=== PATIENT | male | born 1955 | race Hispanic/Latino ===

== ENCOUNTER 2016-11-23 20:13 | Emergency (ER) | payer MEDICARE ==
[2016-11-23 20:14] VITALS: BMI 19.5
[2016-11-23 20:33] VITALS: BP 116/72; PULSE 94; RESP 16; TEMP 98.2; O2SAT 99
[2016-11-23] MEDS ORDERED: Lactated Ringer's 1,000 ML IV SCH (21:00)
--- NOTE | 2016-11-23 21:38 | ED PDOC ---
HPI: Abdomen Time Seen by Provider: 11/23/16 20:49 Chief Complaint (Nursing): Chest Pain Chief Complaint (Provider): GI problem History Per: Patient History/Exam Limitations: no limitations Onset/Duration Of Symptoms: Days (2x) Current Symptoms Are (Timing): Still Present Severity: Moderate Location Of Pain/Discomfort: Epigastric Associated Symptoms: denies: Fever, Diarrhea Additional Complaint(s): 61 year old male patient with a pertinent medical history of pancreatitis and EtOH abuse presents to the ED with complaints of abdominal pain and vomiting that started 2x days ago. He denies ingesting alcohol for the past 8x months. He denies having a fever and diarrhea. PMD: Patient does not recall Past Medical History Reviewed: Historical Data, Nursing Documentation, Vital Signs Vital Signs: Last Vital Signs Temp 98.2 F 11/23/16 20:29 Pulse 94 H 11/23/16 20:29 Resp 16 11/23/16 20:29 BP 116/72 11/23/16 20:29 Pulse Ox 99 11/23/16 21:45 - Medical History PMH: Anxiety, Depression, HTN, Pancreatitis (Recurrent) Denies: HIV, Chronic Kidney Disease - Family History Family History: States: Unknown Family Hx - Social History Alcohol: None Drugs: Denies - Home Medications Home Medications: Ambulatory Orders Medication Instructions Recorded Alprazolam [Xanax] 0.5 mg PO TID 08/18/16 Paroxetine HCl [Paxil] 40 mg PO DAILY 08/18/16 oxyCODONE [oxyCODONE Immediate 5 mg PO Q6 PRN 10/29/16 Release Tab] Dicyclomine [Dicyclomine HCl] 10 mg PO Q8 #20 cap 11/23/16 Famotidine [Pepcid] 20 mg PO Q12 #20 tab 11/23/16 - Allergies Allergies/Adverse Reactions: Allergies Allergy/AdvReac Type Severity Reaction Status Date / Time No Known Allergies Allergy Verified 11/23/16 20:28 Review of Systems ROS Statement: Except As Marked, All Systems Reviewed And Found Negative Constitutional: Negative for: Fever Gastrointestinal: Positive for: Vomiting, Abdominal Pain. Negative for: Diarrhea Physical Exam - Reviewed Nursing Documentation Reviewed: Yes Vital Signs Reviewed: Yes - Physical Exam Appears: Positive for: Well, Non-toxic, No Acute Distress Head Exam: Positive for: ATRAUMATIC, NORMOCEPHALIC Skin: Positive for: Normal Color, Warm, Dry Cardiovascular/Chest: Positive for: Regular Rate, Rhythm, Chest Non Tender Respiratory: Positive for: Normal Breath Sounds. Negative for: Respiratory Distress Gastrointestinal/Abdominal: Positive for: Bowel Sounds, Tenderness (epigastric) Neurologic/Psych: Positive for: Alert, Oriented (3x) - Laboratory Results Result Diagrams: 11/23/16 21:41 11/23/16 21:41 - ECG O2 Sat by Pulse Oximetry: 99 (RA) Pulse Ox Interpretation: Normal Medical Decision Making Medical Decision Makin:49 Initial impression: 61 year old male with abdominal pain and vomiting. Initial plan: * alcohol serum * CMP * lipase * CBC * lactated ringers 1,000ml IV 500mls/hr * morphine 4mg IVP * pepcid 4mg IVP * zofran 4mg IVP * reevaluation Scribe Attestation: Documented by Traci Adler, acting as a scribe for Solo Beard MD. Provider Scribe Attestation: All medical record entries made by the Scribe were at my direction and personally dictated by me. I have reviewed the chart and agree that the record accurately reflects my personal performance of the history, physical exam, medical decision making, and the department course for this patient. I have also personally directed, reviewed, and agree with the discharge instructions and disposition. Disposition - Clinical Impression Clinical Impression: Gastritis - Patient ED Disposition Is Patient to be Admitted: No Counseled Patient/Family Regarding: Studies Performed, Diagnosis, Need For Followup, Rx Given - Disposition Referrals: [facility] [Outside] Disposition: Routine/Home Disposition Time: 23:38 Condition: FAIR Prescriptions: Dicyclomine [Dicyclomine HCl] 10 mg PO Q8 #20 cap Famotidine [Pepcid] 20 mg PO Q12 #20 tab Instructions: Gastritis (ED)
[2016-11-23 21:57] LABS: ALB/GLOB RATIO 1.4 (1.0-2.1); ALCOHOL SERUM < 10 mg/dl (0-10); ALKALINE PHOSPHATASE 85 U/L (38-126); ALT/SGPT 32 U/L (21-72); AST/SGOT 20 U/L (17-59); BASO % 0.5 % (0.0-2.0); BILIRUBIN,TOTAL 0.3 mg/dl (0.2-1.3); BLOOD UREA NITROGEN 21 mg/dl (9-20); CALCIUM 9.3 mg/dL (8.4-10.2); CARBON DIOXIDE 24 mmol/L (22-30); CHLORIDE 102 mmol/L (98-107); EOS # 0.1 K/uL (0.0-0.7); EOS % 0.7 % (0.0-4.0); GFR AFRICAN-AMERICAN > 60; GLUCOSE,RANDOM 101 mg/dL (75-110); HEMATOCRIT 38.7 % (35.0-51.0); LYMPH % 21.7 % (20.0-40.0); MEAN CORPUSCULAR HGB CONC 34.4 g/dL (33.0-37.0); MEAN PLATELET VOLUME 8.1 fl (7.2-11.7); MONO # 0.7 K/uL (0.0-0.8); MONO % 7.5 % (0.0-10.0); NEUT # 6.5 K/uL (1.8-7.0); NEUT % 69.6 % (50.0-75.0); POTASSIUM 4.2 MMOL/L (3.6-5.0); RED CELL DISTRIBUTION WIDTH 14.6 % (11.5-14.5); SODIUM 142 mmol/l (132-148); TOTAL PROTEIN 7.4 G/DL (6.3-8.2); WHITE BLOOD COUNT 9.3 K/uL (4.8-10.8)
--- NOTE | 2016-11-23 23:12 | CT ---
EXAM: CT Abdomen and Pelvis Without Intravenous Contrast. CLINICAL HISTORY: 61 years old, male; Pain; Abdominal pain; Generalized; Patient HX: B/l abd pain with epigastric discomfort/anxiety. HTN. Pacreatitis; Additional info: R/O kidney stone TECHNIQUE: Axial computed tomography images of the abdomen and pelvis without intravenous contrast. This CT exam was performed using one or more of the following dose reduction techniques: automated exposure control, adjustment of the mA and/or kV according to patient size, and/or use of iterative reconstruction technique. COMPARISON: CT - ABD PELVIS IV CONTRAST ONLY 09/20/2016 2:44:30 AM FINDINGS: Lower thorax: There is minimal bibasilar atelectasis. ABDOMEN: Liver: There are no focal liver lesions present. Gallbladder and bile ducts: The gallbladder is normal. No calcified stones. No ductal dilation. Pancreas: The pancreas is normal. No ductal dilation. Spleen: The spleen is normal. Adrenals: 2.3 CM left adrenal adenoma is slightly enlarged from 2.0 CM on 09/20/2016. Kidneys and ureters: There is mild fullness of the left renal collecting system and left ureter without an obstructing calculus seen. This could possibly relate to recently passed calculus, please correlate clinically. The right kidney is normal. Stomach and bowel: Stomach is partially decompressed and grossly unremarkable. Colonic constipation is present. There is no evidence of intestinal obstruction. No mucosal thickening. Appendix: No findings to suggest acute appendicitis. PELVIS: Bladder: Bladder is partially decompressed however appears thickwalled. The wall thickening could relate to underdistention, chronic outflow obstruction or infectious, inflammatory or neoplastic process. Please correlate clinically and if indicated further evaluation can be obtained. Reproductive: Prostate is prominent measuring 5.0 CM transverse. ABDOMEN and PELVIS: Intraperitoneal space: There is no evidence of free intraperitoneal fluid. There is no free intraperitoneal air. Bones/joints: There are mild degenerative changes present. No acute fracture. No dislocation. Soft tissues: Unremarkable. Vasculature: The aorta demonstrates moderate atherosclerotic calcification. No abdominal aortic aneurysm. Lymph nodes: There is no evidence of lymphadenopathy. IMPRESSION: 1. There is mild fullness of the left renal collecting system and left ureter without an obstructing calculus seen. This could possibly relate to recently passed calculus, please correlate clinically. 2. Bladder is partially decompressed however appears thickwalled. The wall thickening could relate to underdistention, chronic outflow obstruction or infectious, inflammatory or neoplastic process. Please correlate clinically and if indicated further evaluation can be obtained. 3. Additional incidental and/or chronic findings as described.
== END 2016-11-23 23:40 | disposition home or self-care (01) ==
LOC: H.ER 20:13
DX: K29.70 Gastritis, unspecified, without bleeding (principal); I10 Essential (primary) hypertension
CPT/HCPCS: 74176; 80053; 83690; 85025; 96374; 96375; 99281; G0480; J2270; J2405

== ENCOUNTER 2016-12-15 18:16 | Inpatient (IN) | payer MEDICARE ==
[2016-12-15 18:17] VITALS: BMI 19.5
[2016-12-15] MEDS ORDERED: Sodium Chloride 0.9% 1,000 ML IV STA (18:37)
[2016-12-15] MEDS ORDERED: Iohexol 240 (50 ml) PO ONE (18:38)
--- NOTE | 2016-12-15 18:44 | ED PDOC ---
HPI: Abdomen Time Seen by Provider: 12/15/16 18:32 Chief Complaint (Nursing): Abdominal Pain Chief Complaint (Provider): Abdominal Pain History Per: Patient History/Exam Limitations: no limitations Onset/Duration Of Symptoms: Days (x2) Associated Symptoms: Nausea, Vomiting (nonbloody) Additional Complaint(s): 18:39 Leonard Quezada is a 61 year old male with a history of chronic pancreatitis, drug and alcohol abuse, and chronic smoking, that presents to the ED with a chief complaint of stabbing central abdominal pain that radiates to his back that he has been experiencing for the past two days with associated nausea and several episodes on nonbloody vomiting. Patient states that this episode feels similar to the episodes of abdominal pain he has experienced as a result of pancreatitis, which he developed due to his drug and alcohol abuse, but also states that he has been sober from both drugs and alcohol for the past 7 months. He denies any fever, syncope, chest pain, or shortness of breath. PMD: Shaun Hidalgo Past Medical History Reviewed: Historical Data, Nursing Documentation, Vital Signs Vital Signs: Last Vital Signs Temp 98.4 F 12/15/16 18:23 Pulse 103 H 12/15/16 18:23 Resp 16 12/15/16 18:23 BP 156/76 H 12/15/16 18:23 Pulse Ox 98 12/15/16 19:09 - Medical History PMH: Anxiety, Depression, HTN, Pancreatitis (Recurrent) Denies: HIV, Chronic Kidney Disease - Surgical History Surgical History: No Surg Hx - Family History Family History: States: Unknown Family Hx - Social History Current smoker - smoking cessation education provided: Yes Alcohol: None (patient states that he has been sober for 7 months) Drugs: Denies, Other (patient states that he has been sober for 7 months) - Home Medications Home Medications: Ambulatory Orders Medication Instructions Recorded Alprazolam [Xanax] 0.5 mg PO TID 08/18/16 Paroxetine HCl [Paxil] 40 mg PO DAILY 08/18/16 oxyCODONE [oxyCODONE Immediate 5 mg PO Q6 PRN 10/29/16 Release Tab] Dicyclomine [Dicyclomine HCl] 10 mg PO Q8 #20 cap 11/23/16 Famotidine [Pepcid] 20 mg PO Q12 #20 tab 11/23/16 - Allergies Allergies/Adverse Reactions: Allergies Allergy/AdvReac Type Severity Reaction Status Date / Time No Known Allergies Allergy Verified 11/23/16 20:28 Review of Systems Constitutional: Negative for: Fever Cardiovascular: Negative for: Chest Pain Respiratory: Negative for: Shortness of Breath Gastrointestinal: Positive for: Nausea, Vomiting (nonbloody) Neurological: Negative for: Other (Syncope) Physical Exam - Reviewed Nursing Documentation Reviewed: Yes Vital Signs Reviewed: Yes - Physical Exam Appears: Positive for: Non-toxic Head Exam: Positive for: ATRAUMATIC, NORMOCEPHALIC Skin: Positive for: Normal Color, Warm. Negative for: Pallor Cardiovascular/Chest: Positive for: Regular Rate, Rhythm. Negative for: Murmur Respiratory: Positive for: Normal Breath Sounds. Negative for: Wheezing Pulses-Dorsalis Pedis (L): 2+ Pulses-Dorsalis Pedis (R): 2+ Gastrointestinal/Abdominal: Positive for: Tenderness (mild central abdominal tenderness). Negative for: Guarding, Rebound Neurologic/Psych: Positive for: Alert, Oriented - ECG O2 Sat by Pulse Oximetry: 98 (RA) Pulse Ox Interpretation: Normal Medical Decision Making Medical Decision Makin:37 Initial Impression: Acute Abdominal Pain Initial Plan: * CBC * CMP * PTT * PT * Lipase * Alcohol Serum * Urinalysis * Morphine 2 mg IV * Sodium Chloride 1000 mL at 1000 mLs/hr * Iohexol 50 ml PO * Reevaluation Patient's old charts were reviewed, CT Scan from September 2016 revealed abnormal appearing tail of pancreas. Obtaining image to gauge stability of evolution. 19:00 Patient will be transferred over to Dr. Cornelio Giron pending ED workup. Scribe Attestation: Documented by Poonam Ramos, acting as a scribe for Pastor Leon III, MD. Provider Scribe Attestation: All medical record entries made by the Scribe were at my direction and personally dictated by me. I have reviewed the chart and agree that the record accurately reflects my personal performance of the history, physical exam, medical decision making, and the department course for this patient. I have also personally directed, reviewed, and agree with the discharge instructions and disposition. Disposition - Clinical Impression Clinical Impression: Abdominal pain - Patient ED Disposition Is Patient to be Admitted: Transfer of Care - Disposition Disposition: Transfer of Care Disposition Time: 19:10 Condition: STABLE Patient Signed Over To: Cornelio Giron Handoff Comments: pending labs imaging dispo
--- NOTE | 2016-12-15 19:08 | ED PDOC ---
- Laboratory Results Result Diagrams: 12/15/16 19:10 12/15/16 19:10 - ECG O2 Sat by Pulse Oximetry: 98 (RA) Medical Decision Making Medical Decision Makin:00 Patient transferred [place] Dr. Pastor Leon III pending ED workup. 19:16 Patient is to be placed in ED Obs secondary to ED workup. 0006: Patient still experiencing intractable pain. Spoke with Dr. Hidalgo who will admit the patient. Spoke with Dr. Banda who states patient was supposed to f/u outpatient, but never made an appointment. Dr. Banda agrees to consult and will consider ERCP or MRCP tomorrow. Disposition - Clinical Impression Clinical Impression: Abdominal pain, Acute on chronic pancreatitis - POA Present On Arrival: None - Disposition Disposition: Hospitalized as Observation Patient Disposition Time: 19:16 Condition: STABLE ED OBSERVATION Date of observation admission: 12/15/16 Time of observation admission: 19:16 - Progress Note Progress Note: 19:16 Patient placed in ED Obs secondary to ED workup.
[2016-12-15 19:32] LABS: BASO % 0.7 % (0.0-2.0); EOS % 0.3 % (0.0-4.0); HEMATOCRIT 39.6 % (35.0-51.0); LYMPH # 1.7 K/uL (1.0-4.3); LYMPH % 27.4 % (20.0-40.0); MEAN CELL VOLUME 94.6 fl (80.0-94.0); MEAN CORPUSCULAR HEMOGLOBIN 31.6 pg (27.0-31.0); MEAN CORPUSCULAR HGB CONC 33.4 g/dL (33.0-37.0); MONO # 0.6 K/uL (0.0-0.8); MONO % 8.8 % (0.0-10.0); NEUT % 62.8 % (50.0-75.0); WHITE BLOOD COUNT 6.4 K/uL (4.8-10.8)
[2016-12-15 19:44] LABS: ALB/GLOB RATIO 1.4 (1.0-2.1); ALCOHOL SERUM < 10 mg/dl (0-10); ALKALINE PHOSPHATASE 69 U/L (38-126); ALT/SGPT 18 U/L (21-72); AST/SGOT 26 U/L (17-59); BILIRUBIN,TOTAL 0.3 mg/dl (0.2-1.3); BLOOD UREA NITROGEN 19 mg/dl (9-20); CALCIUM 10.1 mg/dL (8.4-10.2); CARBON DIOXIDE 26 mmol/L (22-30); CHLORIDE 104 mmol/L (98-107); GFR AFRICAN-AMERICAN > 60; GLUCOSE,RANDOM 88 mg/dL (75-110); LIPASE 429 U/L (23-300); POTASSIUM 4.7 MMOL/L (3.6-5.0); SODIUM 144 mmol/l (132-148); TOTAL PROTEIN 7.6 G/DL (6.3-8.2)
[2016-12-15 20:00] LABS: RBC URINE 1 /hpf (0-3); URINE BILIRUBIN NEGATIVE (NEGATIVE); URINE BLOOD NEGATIVE (NEGATIVE); URINE COLOR STRAW (YELLOW); URINE GLUCOSE (UA) NEG (Normal); URINE KETONE NEGATIVE (NEGATIVE); URINE LEUKOCYTE ESTERASE NEG Leu/uL (Negative); URINE PROTEIN NEGATIVE (NEGATIVE); URINE UROBILINOGEN 0.2-1.0 mg/dL (0.2-1.0); WBC URINE 2 /hpf (0-5)
[2016-12-15] MEDS ORDERED: Iohexol 300 100 ML IJ ONE (21:42)
[2016-12-15] MEDS ORDERED: Sodium Chloride 0.9% 50 ML IV ONE (21:43)
--- NOTE | 2016-12-15 23:11 | CT ---
EXAM: CT Abdomen and Pelvis With Intravenous Contrast CLINICAL HISTORY: 61 years old, male; Pain; Abdominal pain; Epigastric; Patient HX: HX of chronic pancreatitis, gastritis; Additional info: Abdominal pain; HX pancreatitis abnormal pancreas TECHNIQUE: Axial computed tomography images of the abdomen and pelvis with intravenous contrast. This CT exam was performed using one or more of the following dose reduction techniques: automated exposure control, adjustment of the mA and/or kV according to patient size, and/or use of iterative reconstruction technique. Coronal and sagittal reformatted images were created and reviewed. CONTRAST: 90 mL of [id number] administered intravenously. COMPARISON: CT - ABD PELVIS W/O PO OR 11/23/2016 10:51:39 PM FINDINGS: Lower thorax: There is minimal bibasilar atelectasis. ABDOMEN: Liver: There are no focal liver lesions present. Gallbladder and bile ducts: The gallbladder is normal. No calcified stones. No ductal dilation. Pancreas: The pancreatic duct is prominent centrally measuring 5 mm. It is difficult to exclude underlying abnormality. If indicated, this could be further evaluated with MRCP or ERCP. Spleen: The spleen is normal. Adrenals: 1.5 CM right adrenal adenoma. 2.0 CM left adrenal adenoma. Kidneys and ureters: The kidneys are normal. No hydronephrosis. Stomach and bowel: The stomach is decompressed. Colonic constipation is present. There is no evidence of intestinal obstruction. No mucosal thickening. Appendix: No findings to suggest acute appendicitis. PELVIS: Bladder: The bladder is normal. Reproductive: 4.8 CM prostate. ABDOMEN and PELVIS: Intraperitoneal space: There is no evidence of free intraperitoneal fluid. There is no free intraperitoneal air. Bones/joints: There are mild degenerative changes present. No acute fracture. No dislocation. Soft tissues: Unremarkable. Vasculature: The aorta demonstrates moderate atherosclerotic calcification. No abdominal aortic aneurysm. Lymph nodes: There are multiple nonspecific enlarged lymph nodes. IMPRESSION: 1. The pancreatic duct is prominent centrally measuring 5 mm. It is difficult to exclude underlying abnormality. If indicated, this could be further evaluated with MRCP or ERCP. 2. 1.5 CM right adrenal adenoma. 2.0 CM left adrenal adenoma. 3. Additional incidental and/or chronic findings as described.
[2016-12-16] MEDS: Lactated Ringer's 1,000 ML IV SCH ×4 (00:22→19:56)
[2016-12-16] MEDS ORDERED: oxyCODONE 5 mg Immediate Release Tab PO PRN (06:28)
[2016-12-16 07:17] LABS: HEMATOCRIT 34.8 % (35.0-51.0); MEAN CORPUSCULAR HEMOGLOBIN 31.8 pg (27.0-31.0); MEAN CORPUSCULAR HGB CONC 33.8 g/dL (33.0-37.0); RED CELL DISTRIBUTION WIDTH 13.8 % (11.5-14.5); WHITE BLOOD COUNT 6.2 K/uL (4.8-10.8)
[2016-12-16 07:31] LABS: ALB/GLOB RATIO 1.4 (1.0-2.1); ALKALINE PHOSPHATASE 69 U/L (38-126); ALT/SGPT 20 U/L (21-72); AST/SGOT 26 U/L (17-59); BILIRUBIN,TOTAL 0.5 mg/dl (0.2-1.3); BLOOD UREA NITROGEN 17 mg/dl (9-20); CALCIUM 9.2 mg/dL (8.4-10.2); CARBON DIOXIDE 24 mmol/L (22-30); CHLORIDE 108 mmol/L (98-107); CHOLESTEROL 142 mg/dL (0-199); GFR AFRICAN-AMERICAN > 60; GLUCOSE,RANDOM 78 mg/dL (75-110); POTASSIUM 4.4 MMOL/L (3.6-5.0); SODIUM 143 mmol/l (132-148); TOTAL PROTEIN 6.2 G/DL (6.3-8.2)
[2016-12-16 07:50] LABS: T4 7.36 ug/dl (5.5-11.0)
[2016-12-16 07:51] LABS: PARTIAL THROMBOPLASTIN TIME 25.4 SECONDS (23.3-32.5)
[2016-12-16 08:04] LABS: THYROID STIMULATING HORMONE 2.07 mIU/ML (0.46-4.68)
[2016-12-16] MEDS ORDERED: Patient's Own Med (Paroxetine Hcl [Paxil] 40 MG) PO SCH (09:00)
--- NOTE | 2016-12-16 12:40 | CP.PCM.HP ---
History of Present Illness - History of Present Illness History of Present Illness: CC: Abdominal pain. 61 y/o M, came to [facility] for evaluation of Abdominal pain, ondet 2 days [employer] with no relief. Pt appear c/o of Abdominal pain RUQ,RLQ increased on DOA, pain is stabbing, constant, moderate to severe intensity 7-8:10, radiated to mid-back associated to N/V/D (several episodes of vomiting non bloody-non bilious). Worsening symptoms: Hx of Alcohol abuse (currently drinking). Aggravated factor: Changing positions, Irritability due to pain. Pt stated, last time he felt these symptoms was having an episode of Acute Pancreatitis. Pt denied: Fever, chills, dizziness, syncope, CP, SOB, cough, weakness, sick contact, recent travel. Pt denied Hx HIV. PMHx: Recurrent Pancreatitis, Anxiety, Depression, HTN. Hx ETHO abuse, Opioid dependence for chronic pain. CT Abd/Pel Shows; Prominent Pancreatic duct, b/l adrenal adenoma. Present on Admission - Present on Admission Any Indicators Present on Admission: No Review of Systems - Constitutional Constitutional: Other (negative). absent: Chills, Fever - EENT Eyes: Requires Corrective Lenses Ears: Other (negative) Nose/Mouth/Throat: Other (negative) - Cardiovascular Cardiovascular: Other (negative) - Respiratory Respiratory: Other (negative) - Gastrointestinal Gastrointestinal: Abdominal Pain, Diarrhea, Nausea, Vomiting - Genitourinary Genitourinary: Other (negative) - Musculoskeletal Musculoskeletal: Back Pain - Integumentary Integumentary: Other (negative) - Neurological Neurological: Other (negative) - Psychiatric Psychiatric: Anxiety, Depression - Endocrine Endocrine: Other (negative) - Hematologic/Lymphatic Hematologic: Other (negative) Past Patient History - Infectious Disease Hx of Infectious Diseases: None - Past Medical History & Family History Past Medical History?: Yes Pertinent Family History: Unknown - Past Social History Smoking Status: Light Smoker < 10 Cigarettes Daily Alcohol: Other (ETHO abuse, last time drinking 7 month ago.) Drugs: Denies Home Situation {Lives}: Alone - CARDIAC Hx Cardiac Disorders: Yes Hx Hypertension: Yes - PULMONARY Hx Respiratory Disorders: No - NEUROLOGICAL Hx Neurological Disorder: No - HEENT Hx HEENT Problems: No - RENAL Hx Chronic Kidney Disease: No - ENDOCRINE/METABOLIC Hx Endocrine Disorders: No - HEMATOLOGICAL/ONCOLOGICAL Hx Blood Disorders: No Hx Human Immunodeficiency Virus (HIV): No - INTEGUMENTARY Hx Dermatological Problems: No - MUSCULOSKELETAL/RHEUMATOLOGICAL Hx Musculoskeletal Disorders: Yes Hx Falls: Yes - GASTROINTESTINAL Hx Gastrointestinal Disorders: Yes Hx Pancreatitis: Yes (Recurrent) - GENITOURINARY/GYNECOLOGICAL Hx Genitourinary Disorders: No - PSYCHIATRIC Hx Psychophysiologic Disorder: Yes Hx Anxiety: Yes Hx Depression: Yes Hx Substance Use: Yes - SURGICAL HISTORY Hx Surgeries: No - ANESTHESIA Hx Anesthesia: No Hx Anesthesia Reactions: No Hx Malignant Hyperthermia: No Meds Allergies/Adverse Reactions: Allergies Allergy/AdvReac Type Severity Reaction Status Date / Time No Known Allergies Allergy Verified 11/23/16 20:28 Physical Exam - Constitutional Appears: No Acute Distress - Head Exam Head Exam: NORMAL INSPECTION - Eye Exam Eye Exam: PERRL - ENT Exam ENT Exam: Normal Oropharynx - Neck Exam Neck exam: Positive for: Normal Inspection - Respiratory Exam Respiratory Exam: NORMAL BREATHING PATTERN - Cardiovascular Exam Cardiovascular Exam: REGULAR RHYTHM - GI/Abdominal Exam GI & Abdominal Exam: Normal Bowel Sounds, Soft - Extremities Exam Extremities exam: Positive for: normal inspection - Back Exam Back exam: NORMAL INSPECTION - Neurological Exam Neurological exam: Alert, Oriented x3 Additional comments: No motor sensor deficit. - Psychiatric Exam Psychiatric exam: Anxious - Skin Skin Exam: Warm Results - Vital Signs Recent Vital Signs: Last Vital Signs Temp 97.8 F 12/16/16 07:52 Pulse 71 12/16/16 07:52 Resp 20 12/16/16 07:52 BP 137/82 12/16/16 07:52 Pulse Ox 95 12/16/16 07:52 reviewed Kev - Labs Result Diagrams: 12/16/16 06:13 12/16/16 06:50 Labs: Laboratory Results - last 24 hr 12/15/16 12/16/16 12/16/16 19:28 06:13 06:50 WBC 6.2 RBC 3.70 L Hgb 11.7 L Hct 34.8 L MCV 94.0 MCH 31.8 H MCHC 33.8 RDW 13.8 Plt Count 181 PT 11.2 INR 1.08 APTT 25.4 Sodium 143 Potassium 4.4 Chloride 108 H Carbon Dioxide 24 Anion Gap 15 BUN 17 Creatinine 0.7 L Est GFR ( Amer) > 60 Est GFR (Non-Af Amer) > 60 Random Glucose 78 Calcium 9.2 Total Bilirubin 0.5 AST 26 ALT 20 L Alkaline Phosphatase 69 Total Protein 6.2 L Albumin 3.6 Globulin 2.6 Albumin/Globulin Ratio 1.4 Triglycerides 68 Cholesterol 142 LDL Cholesterol Direct 85 HDL Cholesterol 42 Thyroxine (T4) 7.36 TSH 3rd Generation 2.07 Urine Color Straw Urine Clarity Clear Urine pH 6.0 Ur Specific Z[place] 1.005 Urine Protein Negative Urine Glucose (UA) Neg Urine Ketones Negative Urine Blood Negative Urine Nitrate Negative Urine Bilirubin Negative Urine Urobilinogen 0.2-1.0 Ur Leukocyte Esterase Neg Urine RBC (Auto) 1 Urine Microscopic WBC 2 reviewed J,P. - Imaging and Cardiology CT scan - abdomen Status: Report reviewed by me (GabinoP.) CT scan - pelvis Status: Report reviewed by me (Delia.P.) Assessment & Plan (1) Abdominal pain Status: Acute Priority: High (2) Acute on chronic pancreatitis Status: Acute Priority: High (3) Anxiety Status: Chronic Priority: Medium (4) Depression Status: Chronic Priority: Medium - Assessment and Plan (Free Text) Plan: Continue Dilaudid, Pepcid, Xanax and rest of Tx. f/u GI consult. - Date & Time Date: 12/16/16 Time: 11:00
[2016-12-16 15:50] LABS: URINE BILIRUBIN NEGATIVE (NEGATIVE); URINE BLOOD NEGATIVE (NEGATIVE); URINE COLOR YELLOW (YELLOW); URINE GLUCOSE (UA) NEG (Normal); URINE KETONE NEGATIVE (NEGATIVE); URINE LEUKOCYTE ESTERASE NEG Leu/uL (Negative); URINE PROTEIN NEGATIVE (NEGATIVE); URINE UROBILINOGEN 0.2-1.0 mg/dL (0.2-1.0); WBC URINE < 1 /hpf (0-5)
--- NOTE | 2016-12-16 20:19 | CARD ---
APPROVED REPORT EKG Measurement Heart [id number] <Conclusion> Normal sinus rhythm Minimal voltage criteria for LVH, may be normal variant Borderline ECG
--- NOTE | 2016-12-16 20:46 | CP.PCM.CON ---
History of Present Illness - History of Present Illness History of Present Illness: GI consult requested by Dr Hidalgo- This is a 61 year old male with history of Alcohol Abuse and dependance, Chronic pancreatitis with numerous admissions for same complaint and chronic abdominal pain presenting with abdominal pain, nausea , vomiting, and diarrhea. As per patient last drink last week. He is still smoking. Patient admits his symptoms are similar to prior ER visit CT A/P showing pancreatic ductal dilatation in pancreatic head and prior hypodense pancreatic body lesion not noted from CT A/P 10/2014. Patient states he possibly had a colonoscopy five years ago at outside facility-stating he "was not told the results". He is focused on asking for pain medications. He is somewhat agitated today. Tolerated diet Review of Systems - Review of Systems Review of Systems: 12 point ROS unremarkable except that documented in HPI Past Patient History - Infectious Disease Hx of Infectious Diseases: None - Past Medical History & Family History Past Medical History?: Yes - Past Social History Smoking Status: Light Smoker < 10 Cigarettes Daily - CARDIAC Hx Cardiac Disorders: Yes Hx Hypertension: Yes - PULMONARY Hx Respiratory Disorders: No - NEUROLOGICAL Hx Neurological Disorder: No - HEENT Hx HEENT Problems: No - RENAL Hx Chronic Kidney Disease: No - ENDOCRINE/METABOLIC Hx Endocrine Disorders: No - HEMATOLOGICAL/ONCOLOGICAL Hx Blood Disorders: No Hx Human Immunodeficiency Virus (HIV): No - INTEGUMENTARY Hx Dermatological Problems: No - MUSCULOSKELETAL/RHEUMATOLOGICAL Hx Musculoskeletal Disorders: No Hx Falls: Yes - GASTROINTESTINAL Hx Gastrointestinal Disorders: Yes Hx Pancreatitis: Yes (Recurrent) - GENITOURINARY/GYNECOLOGICAL Hx Genitourinary Disorders: No - PSYCHIATRIC Hx Psychophysiologic Disorder: Yes Hx Anxiety: Yes Hx Depression: Yes Hx Substance Use: Yes - SURGICAL HISTORY Hx Surgeries: No - ANESTHESIA Hx Anesthesia: No Hx Anesthesia Reactions: No Hx Malignant Hyperthermia: No Meds Allergies/Adverse Reactions: Allergies Allergy/AdvReac Type Severity Reaction Status Date / Time No Known Allergies Allergy Verified 11/23/16 20:28 - Medications Medications: Current Medications Alprazolam (Xanax) 0.5 mg PO TID [facility] Last Admin: 12/16/16 16:02 Dose: 0.5 mg Dicyclomine HCl (Bentyl) 10 mg PO Q8 [facility] Last Admin: 12/16/16 18:36 Dose: 10 mg Famotidine (Pepcid) 20 mg PO Q12 [facility] Last Admin: 12/16/16 09:29 Dose: 20 mg Hydromorphone HCl (Dilaudid) 2 mg IVP Q4H PRN PRN Reason: Pain, severe (8-10) Last Admin: 12/16/16 19:51 Dose: 2 mg Lactated Ringer's (Lactated Ringer's) 1,000 mls @ 250 mls/hr IV .Q4H [facility] Last Admin: 12/16/16 19:56 Dose: 250 mls/hr Oxycodone HCl (Oxycodone Immediate Release Tab) 5 mg PO Q6 PRN PRN Reason: Pain, moderate (4-7) Pantoprazole Sodium (Protonix Inj) 40 mg IVP DAILY [facility] Last Admin: 12/16/16 09:29 Dose: 40 mg Paroxetine HCl (Paxil) 40 mg PO DAILY [facility] Last Admin: 12/16/16 12:29 Dose: 40 mg Physical Exam - Constitutional Appears: Non-toxic, No Acute Distress - Head Exam Head Exam: ATRAUMATIC, NORMAL INSPECTION, NORMOCEPHALIC - Eye Exam Eye Exam: EOMI, Normal appearance, PERRL - ENT Exam ENT Exam: Mucous Membranes Moist, Normal Exam - Respiratory Exam Respiratory Exam: Clear to Auscultation Bilateral, NORMAL BREATHING PATTERN - Cardiovascular Exam Cardiovascular Exam: REGULAR RHYTHM, RRR, +S1, +S2 - GI/Abdominal Exam GI & Abdominal Exam: Normal Bowel Sounds, Soft. absent: Tenderness Additional comments: Non tender. No guarding - Extremities Exam Extremities exam: Positive for: normal inspection - Neurological Exam Neurological exam: Alert, CN II-XII Intact, Normal Gait, Oriented x3, Reflexes Normal - Skin Skin Exam: Dry, Intact, Normal Color, Warm Results - Vital Signs Recent Vital Signs: Last Vital Signs Temp 97.4 F L 12/16/16 20:19 Pulse 62 12/16/16 20:19 Resp 18 12/16/16 20:19 BP 115/74 12/16/16 20:19 Pulse Ox 97 12/16/16 20:19 - Labs Result Diagrams: 12/16/16 06:13 12/16/16 06:50 Labs: Laboratory Results - last 24 hr 12/16/16 15:20 Urine Color Yellow Urine Clarity Clear Urine pH 5.0 Ur Specific [place] 1.019 Urine Protein Negative Urine Glucose (UA) Neg Urine Ketones Negative Urine Blood Negative Urine Nitrate Negative Urine Bilirubin Negative Urine Urobilinogen 0.2-1.0 Ur Leukocyte Esterase Neg Urine Microscopic WBC < 1 Assessment & Plan - Assessment and Plan (Free Text) Assessment: 61 year old male with history of Alcohol Abuse, Chronic pancreatitis with numerous previous admissions admitted with, and chronic abdominal pain now resolving and tolerating diet. CT A/P showing pancreatic ductal dilatation in pancreatic head. Last admission he was given outpatient appointment with Dr Archer for outpatient EUS for PD dilatation but he has been non compliant with outpatient appointments. Has opioid dependance due to chronic pain. Actively drinking alcohol. Plan: - High volume IVF as tolerated by cardiac status - Diet as tolerated - pain management - Needs outpatient EUS for PD dilatation and chronic pain symptoms - Pancreatic enzymes with food and snacks - GI and DVT prophylaxis - Alcohol cessation - Supportive care - Date & Time Date: 12/16/16 Time: 20:45
[2016-12-16] MEDS ORDERED: Lactated Ringer's 1,000 ML IV SCH (21:00)
[2016-12-17 07:37] LABS: HEMATOCRIT 33.2 % (35.0-51.0); MEAN CELL VOLUME 94.8 fl (80.0-94.0); MEAN CORPUSCULAR HEMOGLOBIN 32.1 pg (27.0-31.0); MEAN CORPUSCULAR HGB CONC 33.8 g/dL (33.0-37.0); RED CELL DISTRIBUTION WIDTH 14.1 % (11.5-14.5); WHITE BLOOD COUNT 6.6 K/uL (4.8-10.8)
[2016-12-17 07:46] LABS: ALB/GLOB RATIO 1.4 (1.0-2.1); ALKALINE PHOSPHATASE 66 U/L (38-126); ALT/SGPT 23 U/L (21-72); AMYLASE 187 U/L (30-110); AST/SGOT 28 U/L (17-59); BILIRUBIN,TOTAL 0.3 mg/dl (0.2-1.3); BLOOD UREA NITROGEN 15 mg/dl (9-20); CALCIUM 9.4 mg/dL (8.4-10.2); CARBON DIOXIDE 26 mmol/L (22-30); CHLORIDE 107 mmol/L (98-107); GFR AFRICAN-AMERICAN > 60; GLUCOSE,RANDOM 74 mg/dL (75-110); LIPASE 143 U/L (23-300); POTASSIUM 4.2 MMOL/L (3.6-5.0); SODIUM 146 mmol/l (132-148); TOTAL PROTEIN 6.2 G/DL (6.3-8.2)
[2016-12-17 07:57] VITALS: BP 116/71; RESP 20; TEMP 98.4; O2SAT 95
[2016-12-17 08:32] VITALS: PULSE 62
--- NOTE | 2016-12-17 10:00 | CP.PCM.PN ---
Subjective - Date & Time of Evaluation Date of Evaluation: 12/17/16 Time of Evaluation: 09:58 - Subjective Subjective: RFV: Pancreatitis S: Reports mild persistent abdominal pain, but is overall improved. Tolerated breakfast. Wants to go home. Objective - Vital Signs/Intake and Output Vital Signs (last 24 hours): Temp Pulse Resp BP Pulse Ox 98.4 F 62 20 116/71 95 12/17/16 07:56 12/17/16 08:31 12/17/16 07:56 12/17/16 07:56 12/17/16 07:56 - Medications Medications: Current Medications Alprazolam (Xanax) 0.5 mg PO TID [facility] Last Admin: 12/17/16 08:10 Dose: 0.5 mg Dicyclomine HCl (Bentyl) 10 mg PO Q8 [facility] Last Admin: 12/17/16 08:11 Dose: 10 mg Famotidine (Pepcid) 20 mg PO Q12 [facility] Last Admin: 12/17/16 08:12 Dose: 20 mg Hydromorphone HCl (Dilaudid) 2 mg IVP Q4H PRN PRN Reason: Pain, severe (8-10) Last Admin: 12/17/16 08:09 Dose: 2 mg Lactated Ringer's (Lactated Ringer's) 1,000 mls @ 60 mls/hr IV .[id number] [facility] Last Admin: 12/16/16 23:59 Dose: 60 mls/hr Oxycodone HCl (Oxycodone Immediate Release Tab) 5 mg PO Q6 PRN PRN Reason: Pain, moderate (4-7) Pantoprazole Sodium (Protonix Inj) 40 mg IVP DAILY [facility] Last Admin: 12/17/16 08:12 Dose: 40 mg Paroxetine HCl (Paxil) 40 mg PO DAILY [facility] Last Admin: 12/17/16 08:11 Dose: 40 mg - Labs Labs: 12/17/16 05:20 12/17/16 05:20 PT 11.2 SECONDS (9.6-11.2) 12/16/16 06:50 INR 1.08 (0.92-1.08) 12/16/16 06:50 APTT 25.4 SECONDS (23.3-32.5) 12/16/16 06:50 - Constitutional Appears: No Acute Distress, Chronically Ill - Head Exam Head Exam: ATRAUMATIC, NORMOCEPHALIC - Eye Exam Eye Exam: Normal appearance. absent: Scleral icterus - ENT Exam ENT Exam: Mucous Membranes Moist, Normal Oropharynx - Respiratory Exam Respiratory Exam: Clear to Ausculation Bilateral, NORMAL BREATHING PATTERN. absent: Respiratory Distress - Cardiovascular Exam Cardiovascular Exam: REGULAR RHYTHM, +S1, +S2 - GI/Abdominal Exam GI & Abdominal Exam: Soft. absent: Distended, Guarding, Tenderness - Neurological Exam Neurological Exam: Alert, Oriented x3 - Psychiatric Exam Psychiatric exam: Normal Affect, Normal Mood - Skin Skin Exam: Dry, Normal Color, Warm Assessment and Plan - Assessment and Plan (Free Text) Assessment: 61 year old male with history of EtOH Abuse, Chronic pancreatitis admitted with recurrent abdominal pain. 1. Chronic pancreatitis 2. Pancreatic duct dilation Plan: - low fat diet recommended - pancreatic enzyme supplemenation with meals TID - protonix 40 mg po daily - Diet as tolerated - etoh/smoking abstinence - Needs outpatient EUS for PD dilatation to exclude pancreatic mass - ok ot discharge from GI standpoint
[2016-12-17] MEDS ORDERED: Amylase/Lipase/Protease 5,000 U ECC PO SCH (12:00)
--- NOTE | 2016-12-17 14:56 | CP.PCM.PN ---
Subjective - Date & Time of Evaluation Date of Evaluation: 12/17/16 Time of Evaluation: 09:15 - Subjective Subjective: F/U Abdominal pain. Abdominal pain improved, eating well. Objective - Vital Signs/Intake and Output Vital Signs (last 24 hours): Temp Pulse Resp BP Pulse Ox 98.4 F 62 20 116/71 95 12/17/16 07:56 12/17/16 08:31 12/17/16 07:56 12/17/16 07:56 12/17/16 07:56 - Labs Labs: 12/17/16 05:20 12/17/16 05:20 PT 11.2 SECONDS (9.6-11.2) 12/16/16 06:50 INR 1.08 (0.92-1.08) 12/16/16 06:50 APTT 25.4 SECONDS (23.3-32.5) 12/16/16 06:50 - Constitutional Appears: No Acute Distress - Head Exam Head Exam: NORMAL INSPECTION - Eye Exam Eye Exam: PERRL - ENT Exam ENT Exam: Normal Oropharynx - Neck Exam Neck Exam: Normal Inspection - Respiratory Exam Respiratory Exam: NORMAL BREATHING PATTERN - Cardiovascular Exam Cardiovascular Exam: REGULAR RHYTHM - GI/Abdominal Exam GI & Abdominal Exam: Soft, Normal Bowel Sounds - Extremities Exam Extremities Exam: Normal Inspection - Back Exam Back Exam: NORMAL INSPECTION - Neurological Exam Neurological Exam: Alert, Oriented x3. absent: Motor Sensory Deficit - Psychiatric Exam Psychiatric exam: Anxious - Skin Skin Exam: Warm Assessment and Plan (1) Abdominal pain Assessment & Plan: Improved. Status: Acute (2) Acute on chronic pancreatitis Status: Acute (3) Anxiety Status: Chronic (4) Depression Status: Chronic - Assessment and Plan (Free Text) Plan: Pt improved ans stable to be discharged, see instruction medication sheet, f/u PMD.
[2016-12-18] MEDS ORDERED: Pantoprazole 40 mg EC Tab PO SCH (09:00)
== END 2016-12-17 13:30 | disposition home or self-care (01) | DRG 439 ==
LOC: H.ER 18:16 → H.EROBSV 19:16 → H.ERHOLD 23:49 → H.MEDSURG1 12-16 03:50 → OBSVTOIN 12-16 12:34
PROVIDERS: ADMIT Internal Medicine Pulmonary Disease; ATTEND Internal Medicine Pulmonary Disease
DX: K85.90 Acute pancreatitis without necrosis or infection, unspecified (principal); F11.20 Opioid dependence, uncomplicated; I10 Essential (primary) hypertension; F10.10 Alcohol abuse, uncomplicated; K86.1 Other chronic pancreatitis; F17.200 Nicotine dependence, unspecified, uncomplicated; F32.9 Major depressive disorder, single episode, unspecified; G89.29 Other chronic pain; Z91.19 Patient's noncompliance with other medical treatment and regimen; F41.8 Other specified anxiety disorders

== ENCOUNTER 2016-12-19 01:08 | Emergency (ER) | payer MEDICARE ==
[2016-12-19 01:09] VITALS: BMI 19.5
[2016-12-19 01:26] VITALS: BP 140/80; PULSE 88; RESP 16; TEMP 98.9; O2SAT 98
[2016-12-19 02:22] LABS: BASO # 0.1 K/uL (0.0-0.2); BASO % 0.7 % (0.0-2.0); EOS # 0.1 K/uL (0.0-0.7); EOS % 0.9 % (0.0-4.0); HEMATOCRIT 36.4 % (35.0-51.0); LYMPH # 1.5 K/uL (1.0-4.3); LYMPH % 18.2 % (20.0-40.0); MEAN CELL VOLUME 94.4 fl (80.0-94.0); MEAN CORPUSCULAR HEMOGLOBIN 32.1 pg (27.0-31.0); MEAN PLATELET VOLUME 7.8 fl (7.2-11.7); MONO # 0.7 K/uL (0.0-0.8); MONO % 7.7 % (0.0-10.0); NEUT # 6.2 K/uL (1.8-7.0); NEUT % 72.5 % (50.0-75.0); WHITE BLOOD COUNT 8.5 K/uL (4.8-10.8)
--- NOTE | 2016-12-19 02:22 | ED PDOC ---
HPI: Abdomen Time Seen by Provider: 12/19/16 01:25 Chief Complaint (Nursing): Abdominal Pain Chief Complaint (Provider): Abdominal Pain History Per: Patient History/Exam Limitations: no limitations Onset/Duration Of Symptoms: Days (x1) Current Symptoms Are (Timing): Still Present Additional Complaint(s): 61yo male well known to provider and ED for multiple visits for chronic abdominal pain, alcohol abuse, depression, and pancreatitis presents to the ED with complaints of acute abdominal pain x 1 day. Patient reports multiple episodes of vomiting that is non-bloody and non-bilious. Symptoms consistent with previous episodes of pancreatitis. Denies alcohol use or any other medical complaints. Past Medical History Reviewed: Historical Data, Nursing Documentation, Vital Signs Vital Signs: Last Vital Signs Temp 98.9 F 12/19/16 01:23 Pulse 88 12/19/16 01:23 Resp 16 12/19/16 01:23 BP 140/80 12/19/16 01:23 Pulse Ox 98 12/19/16 02:26 - Medical History PMH: Anxiety, Depression, HTN, Pancreatitis (Recurrent), Chronic Pain (abdominal ) Denies: HIV, Chronic Kidney Disease Other PMH: alcohol abuse - Surgical History Surgical History: No Surg Hx - Family History Family History: States: No Known Family Hx - Social History Current smoker - smoking cessation education provided: Yes Ex-Smoker (has not smoked in the last 12 months): No Alcohol: > 2 Drinks/Day Drugs: Denies - Home Medications Home Medications: Ambulatory Orders Medication Instructions Recorded Alprazolam [Xanax] 0.5 mg PO TID 08/18/16 Paroxetine HCl [Paxil] 40 mg PO DAILY 08/18/16 oxyCODONE [oxyCODONE Immediate 5 mg PO Q6 PRN 10/29/16 Release Tab] Dicyclomine [Bentyl] 10 mg PO Q8 #20 cap 11/23/16 Amylase/Lipase/Protease [Pancrease 25,000 u PO TIDWM #30 ecc 12/17/16 63995 U-5000 [id number] U] Pantoprazole [Protonix EC Tab] 40 mg PO DAILY #30 ect 12/17/16 Dicyclomine [Bentyl] 20 mg PO Q12 PRN #20 tab 12/19/16 - Allergies Allergies/Adverse Reactions: Allergies Allergy/AdvReac Type Severity Reaction Status Date / Time No Known Allergies Allergy Verified 12/19/16 01:23 Review of Systems ROS Statement: Except As Marked, All Systems Reviewed And Found Negative Gastrointestinal: Positive for: Vomiting, Abdominal Pain Physical Exam - Reviewed Nursing Documentation Reviewed: Yes Vital Signs Reviewed: Yes - Physical Exam Appears: Positive for: No Acute Distress, Uncomfortable Head Exam: Positive for: ATRAUMATIC Skin: Positive for: Normal Color, Warm, Dry Eye Exam: Positive for: Normal appearance, EOMI, PERRL ENT: Positive for: Normal ENT Inspection Cardiovascular/Chest: Positive for: Regular Rate, Rhythm. Negative for: Murmur Respiratory: Negative for: Respiratory Distress Gastrointestinal/Abdominal: Positive for: Bowel Sounds, Soft, Tenderness (mild epigastric tenderness). Negative for: Guarding, Rebound Back: Positive for: Normal Inspection. Negative for: L CVA Tenderness, R CVA Tenderness Extremity: Positive for: Normal ROM. Negative for: Deformity Neurologic/Psych: Positive for: Alert, Oriented. Negative for: Motor/Sensory Deficits - Laboratory Results Result Diagrams: 12/19/16 02:19 12/19/16 02:19 - ECG O2 Sat by Pulse Oximetry: 98 (RA) Pulse Ox Interpretation: Normal Medical Decision Making Medical Decision Makin Initial impression: abdominal pain in setting of previous pancreatitis and history of alcoholism Initial plan: * EKG * EtOH serum * Labs * UDrug screen * Lipase * Morphine 6mg IVP * UA * Re-eval 0315 Labs reviewed with no significant abnormalities. Patient notes an improvement in symptoms. Provider emphasized the need to follow up with patient's GI specialist, and patient notes that he has an appointment on December 30. Patient has been prescribed Bentyl. Dx: abdominal pain Scribe Attestation: Documented by Ceci Ramírez acting as a scribe for Milo Morfin MD. Scribe Attestation: All medical record entries made by the Scribe were at my direction and personally dictated by me. I have reviewed the chart and agree that the record accurately reflects my personal performance of the history, physical exam, medical decision making, and the department course for this patient. I have also personally directed, reviewed, and agree with the discharge instructions and disposition. Disposition - Clinical Impression Clinical Impression: Abdominal pain - Patient ED Disposition Is Patient to be Admitted: No Counseled Patient/Family Regarding: Studies Performed, Diagnosis, Need For Followup, Rx Given - Disposition Referrals: Lluvia AYALA,MD Bill [Medical Doctor] - Shaun Hidalgo MD [Primary Care Provider] - Pk Archer MD [Medical Doctor] - Disposition: Routine/Home Disposition Time: 03:15 Condition: STABLE Prescriptions: Dicyclomine [Bentyl] 20 mg PO Q12 PRN #20 tab PRN Reason: abdominal pain Instructions: Abdominal Pain (ED)
[2016-12-19 02:25] LABS: RBC URINE < 1 /hpf (0-3); URINE BILIRUBIN NEGATIVE (NEGATIVE); URINE BLOOD NEGATIVE (NEGATIVE); URINE COLOR STRAW (YELLOW); URINE GLUCOSE (UA) NEG (Normal); URINE KETONE NEGATIVE (NEGATIVE); URINE LEUKOCYTE ESTERASE NEG Leu/uL (Negative); URINE PROTEIN NEGATIVE (NEGATIVE); URINE UROBILINOGEN 0.2-1.0 mg/dL (0.2-1.0); WBC URINE 1 /hpf (0-5)
[2016-12-19 02:27] LABS: CHLORIDE 106 mmol/L (98-107); SODIUM 141 mmol/l (132-148)
[2016-12-19 02:28] LABS: POTASSIUM 4.1 MMOL/L (3.6-5.0)
[2016-12-19 02:30] LABS: ALB/GLOB RATIO 1.5 (1.0-2.1); ALKALINE PHOSPHATASE 63 U/L (38-126); AST/SGOT 23 U/L (17-59); BILIRUBIN,TOTAL 0.3 mg/dl (0.2-1.3); BLOOD UREA NITROGEN 21 mg/dl (9-20); CARBON DIOXIDE 24 mmol/L (22-30); GFR AFRICAN-AMERICAN > 60; GLUCOSE,RANDOM 101 mg/dL (75-110)
[2016-12-19 02:31] LABS: ALCOHOL SERUM < 10 mg/dl (0-10); ALT/SGPT 29 U/L (21-72); CALCIUM 9.4 mg/dL (8.4-10.2); LIPASE 155 U/L (23-300)
--- NOTE | 2016-12-19 18:24 | CARD ---
APPROVED REPORT EKG Measurement Heart [id number] <Conclusion> Normal sinus rhythm Normal ECG
== END 2016-12-19 04:15 | disposition home or self-care (01) ==
LOC: H.ER 01:08
DX: R10.13 Epigastric pain (principal); R11.10 Vomiting, unspecified; F10.20 Alcohol dependence, uncomplicated; F41.9 Anxiety disorder, unspecified; G89.29 Other chronic pain; I10 Essential (primary) hypertension; K85.90 Acute pancreatitis without necrosis or infection, unspecified; Z87.891 Personal history of nicotine dependence
CPT/HCPCS: 80053; 81003; 83690; 85025; 93005; 96374; 99282; G0480; J2270

== ENCOUNTER 2017-01-14 02:44 | Emergency (ER) | payer MEDICARE ==
[2017-01-14 02:44] VITALS: BMI 19.5
[2017-01-14 02:54] VITALS: BP 140/84; PULSE 80; RESP 17; TEMP 98.1; O2SAT 98
[2017-01-14] MEDS ORDERED: Sodium Chloride 0.9% 1,000 ML IV STA (03:16)
--- NOTE | 2017-01-14 03:28 | ED PDOC ---
HPI: Abdomen Time Seen by Provider: 01/14/17 02:48 Chief Complaint (Nursing): Abdominal Pain Chief Complaint (Provider): abdominal pain History Per: Patient History/Exam Limitations: no limitations Onset/Duration Of Symptoms: Days (1) Outside of [place] travel?: No Current Symptoms Are (Timing): Still Present Additional Complaint(s): 61yo male well known to provider and ED for multiple visits for chronic abdominal pain, alcohol abuse, depression, and pancreatitis presents to the ED with complaints of abdominal pain x 1 day. Patient reports multiple episodes of vomiting that are non-bloody and non-bilious. Symptoms consistent with previous episodes of pancreatitis. Denies alcohol use or any other medical complaints. Past Medical History Reviewed: Historical Data, Nursing Documentation, Vital Signs Vital Signs: Last Vital Signs Temp 98.1 F 01/14/17 02:52 Pulse 80 01/14/17 02:52 Resp 17 01/14/17 02:52 BP 140/84 01/14/17 02:52 Pulse Ox 98 01/14/17 05:12 - Medical History PMH: Anxiety, Depression, HTN, Pancreatitis (Recurrent), Chronic Pain (abdominal ) Denies: HIV, Chronic Kidney Disease - Surgical History Surgical History: No Surg Hx - Family History Family History: States: No Known Family Hx - Social History Current smoker - smoking cessation education provided: No Alcohol: Other (hx of alcohol abuse) Drugs: Denies - Home Medications Home Medications: Ambulatory Orders Medication Instructions Recorded Alprazolam [Xanax] 0.5 mg PO TID 08/18/16 Paroxetine HCl [Paxil] 40 mg PO DAILY 08/18/16 oxyCODONE [oxyCODONE Immediate 5 mg PO Q6 PRN 10/29/16 Release Tab] Dicyclomine [Bentyl] 10 mg PO Q8 #20 cap 11/23/16 Amylase/Lipase/Protease [Pancrease 25,000 u PO TIDWM #30 ecc 12/17/16 88597 U-5000 U-[id number] U] Pantoprazole [Protonix EC Tab] 40 mg PO DAILY #30 ect 12/17/16 Dicyclomine [Bentyl] 20 mg PO Q12 PRN #20 tab 12/19/16 Dicyclomine [Bentyl] 20 mg PO Q12 PRN #20 tab 01/14/17 Ondansetron ODT [Zofran ODT] 4 mg PO Q6 PRN #16 odt 01/14/17 - Allergies Allergies/Adverse Reactions: Allergies Allergy/AdvReac Type Severity Reaction Status Date / Time No Known Allergies Allergy Verified 12/19/16 01:23 Review of Systems ROS Statement: Except As Marked, All Systems Reviewed And Found Negative Gastrointestinal: Positive for: Vomiting, Abdominal Pain Physical Exam - Reviewed Nursing Documentation Reviewed: Yes Vital Signs Reviewed: Yes - Physical Exam Appears: Positive for: Well, No Acute Distress Head Exam: Positive for: ATRAUMATIC, NORMAL INSPECTION, NORMOCEPHALIC Skin: Positive for: Normal Color, Warm, Dry Eye Exam: Positive for: Normal appearance, EOMI, PERRL ENT: Positive for: Normal ENT Inspection Neck: Positive for: Normal, Painless ROM, Supple Cardiovascular/Chest: Positive for: Regular Rate, Rhythm. Negative for: Murmur , Tachycardia Respiratory: Positive for: Normal Breath Sounds. Negative for: Wheezing, Respiratory Distress Gastrointestinal/Abdominal: Positive for: Soft, Tenderness (mild epigastric ). Negative for: Guarding, Rebound Back: Positive for: Normal Inspection. Negative for: L CVA Tenderness, R CVA Tenderness Extremity: Positive for: Normal ROM. Negative for: Deformity, Swelling Neurologic/Psych: Positive for: Alert, Oriented - Laboratory Results Result Diagrams: 01/14/17 04:05 01/14/17 04:05 - ECG O2 Sat by Pulse Oximetry: 98 Pulse Ox Interpretation: Normal (RA) Medical Decision Making Medical Decision Makin: Impression: 61yo male w/ abdominal pain in setting of previous pancreatitis and history of alcoholism Plan: EKG Labs Bentyl 20mg PO, Zofran 4mg IV, IVF reassess 0524: Labs reviewed, show no clinically significant abnormalities. Patient stable for d/c. Dx: gastroenteritis, abdominal pain Rx: Bentyl, Zofran Stable Scribe Attestation: Documented by David Comer acting as a scribe for Milo Morfin MD. Provider Scribe Attestation: All medical record entries made by the Scribe were at my direction and personally dictated by me. I have reviewed the chart and agree that the record accurately reflects my personal performance of the history, physical exam, medical decision making, and the department course for this patient. I have also personally directed, reviewed, and agree with the discharge instructions and disposition. Disposition - Clinical Impression Clinical Impression: Abdominal pain, Gastroenteritis - Patient ED Disposition Is Patient to be Admitted: No - Disposition Referrals: Shaun Hidalgo MD [Primary Care Provider] - Disposition: Routine/Home Disposition Time: 05:24 Condition: STABLE Prescriptions: Dicyclomine [Bentyl] 20 mg PO Q12 PRN #20 tab PRN Reason: abdominal pain/diarrhea Ondansetron ODT [Zofran ODT] 4 mg PO Q6 PRN #16 odt PRN Reason: Nausea/Vomiting Instructions: Gastroenteritis (ED)
[2017-01-14 04:16] LABS: CHLORIDE 105 mmol/L (98-107); POTASSIUM 4.3 MMOL/L (3.6-5.0); SODIUM 138 mmol/l (132-148)
[2017-01-14 04:18] LABS: AST/SGOT 23 U/L (17-59); BILIRUBIN,TOTAL 0.4 mg/dl (0.2-1.3); CARBON DIOXIDE 22 mmol/L (22-30); GFR AFRICAN-AMERICAN > 60
[2017-01-14 04:19] LABS: ALB/GLOB RATIO 1.5 (1.0-2.1); ALKALINE PHOSPHATASE 73 U/L (38-126); ALT/SGPT 29 U/L (21-72); BLOOD UREA NITROGEN 21 mg/dl (9-20); CALCIUM 9.6 mg/dL (8.4-10.2); GLUCOSE,RANDOM 100 mg/dL (75-110); LIPASE 137 U/L (23-300); TOTAL PROTEIN 7.2 G/DL (6.3-8.2)
[2017-01-14 04:20] LABS: BASO % 0.7 % (0.0-2.0); EOS # 0.1 K/uL (0.0-0.7); HEMATOCRIT 40.8 % (35.0-51.0); LYMPH # 1.9 K/uL (1.0-4.3); LYMPH % 28.4 % (20.0-40.0); MEAN CELL VOLUME 95.1 fl (80.0-94.0); MEAN CORPUSCULAR HEMOGLOBIN 31.7 pg (27.0-31.0); MEAN CORPUSCULAR HGB CONC 33.3 g/dL (33.0-37.0); MEAN PLATELET VOLUME 8.2 fl (7.2-11.7); MONO # 0.6 K/uL (0.0-0.8); NEUT # 4.1 K/uL (1.8-7.0); NEUT % 59.9 % (50.0-75.0); RED CELL DISTRIBUTION WIDTH 13.9 % (11.5-14.5); WHITE BLOOD COUNT 6.8 K/uL (4.8-10.8)
--- NOTE | 2017-01-14 13:28 | CARD ---
APPROVED REPORT EKG Measurement Heart [id number] <Conclusion> Normal sinus rhythm Incomplete RBBB Minimal voltage criteria for LVH, may be normal variant Borderline ECG
== END 2017-01-14 05:24 | disposition home or self-care (01) ==
LOC: H.ER 02:44
DX: K52.9 Noninfective gastroenteritis and colitis, unspecified (principal); K85.90 Acute pancreatitis without necrosis or infection, unspecified; R11.10 Vomiting, unspecified; F10.20 Alcohol dependence, uncomplicated; F32.9 Major depressive disorder, single episode, unspecified; F41.9 Anxiety disorder, unspecified; G89.29 Other chronic pain; I10 Essential (primary) hypertension; I45.10 Unspecified right bundle-branch block
CPT/HCPCS: 80053; 83690; 85025; 93005; 96361; 96374; 99283; J2405; J7040

== ENCOUNTER 2017-04-12 00:19 | Emergency (ER) | payer MEDICARE ==
[2017-04-12 00:19] VITALS: BMI 19.5
[2017-04-12 00:29] VITALS: BP 164/95; PULSE 94; RESP 18; TEMP 98.5; O2SAT 98
[2017-04-12] MEDS ORDERED: Sodium Chloride 0.9% 1,000 ML IV STA (00:31)
[2017-04-12] MEDS ORDERED: Morphine 4 MG/ML VIAL IV STA ×2 (00:33→03:24)
[2017-04-12] MEDS ORDERED: Morphine 4 MG/ML VIAL ONE ×2 (01:53→03:27)
[2017-04-12 01:54] LABS: BASO % 0.2 % (0.0-2.0); EOS # 0.1 K/uL (0.0-0.7); EOS % 1.3 % (0.0-4.0); LYMPH # 1.6 K/uL (1.0-4.3); LYMPH % 18.8 % (20.0-40.0); MEAN CELL VOLUME 95.7 fl (80.0-94.0); MEAN CORPUSCULAR HEMOGLOBIN 32.5 pg (27.0-31.0); MEAN PLATELET VOLUME 8.3 fl (7.2-11.7); MONO # 0.6 K/uL (0.0-0.8); MONO % 6.7 % (0.0-10.0); NEUT # 6.4 K/uL (1.8-7.0); RBC 4.01 Mil/uL (4.40-5.90); WHITE BLOOD COUNT 8.7 K/uL (4.8-10.8)
[2017-04-12 02:06] LABS: ALB/GLOB RATIO 1.6 (1.0-2.1); ALT/SGPT 35 U/L (21-72); AST/SGOT 23 U/L (17-59); BLOOD UREA NITROGEN 15 mg/dl (9-20); CALCIUM 9.4 mg/dL (8.4-10.2); GFR AFRICAN-AMERICAN > 60; GFR NON-AFRICAN AMERICAN > 60; LIPASE 213 U/L (23-300)
--- NOTE | 2017-04-12 03:14 | ED PDOC ---
HPI: Abdomen Time Seen by Provider: 04/12/17 00:28 Chief Complaint (Nursing): Abdominal Pain Chief Complaint (Provider): Abdominal pain, central History Per: Patient History/Exam Limitations: no limitations Onset/Duration Of Symptoms: Days Outside of [place] travel?: No Current Symptoms Are (Timing): Still Present Location Of Pain/Discomfort: Epigastric, Periumbilical Quality Of Discomfort: Dull, Burning Associated Symptoms: Nausea, Vomiting, Diarrhea, Loss Of Appetite. denies: Fever, Chills, Back Pain, Chest Pain, Constipation, Urinary Symptoms Additional Complaint(s): Pt states he is having central abdominal pain x 2 days. Pt also reports N/V/D. Pt states that this is similar to previous episode of pancreatitis. Pt states he has not been drinking in the last year. Past Medical History Reviewed: Historical Data, Nursing Documentation, Vital Signs Vital Signs: Last Vital Signs Temp 98.5 F 04/12/17 00:23 Pulse 94 H 04/12/17 00:23 Resp 18 04/12/17 00:23 BP 164/95 H 04/12/17 00:23 Pulse Ox 98 04/12/17 00:23 - Medical History PMH: Anxiety, Depression, HTN, Pancreatitis (Recurrent), Chronic Pain (abdominal ) Denies: HIV, Chronic Kidney Disease - Surgical History Surgical History: No Surg Hx - Family History Family History: States: No Known Family Hx - Home Medications Home Medications: Ambulatory Orders Medication Instructions Recorded Alprazolam [Xanax] 0.5 mg PO TID 08/18/16 Paroxetine HCl [Paxil] 40 mg PO DAILY 08/18/16 oxyCODONE [oxyCODONE Immediate 5 mg PO Q6 PRN 10/29/16 Release Tab] Dicyclomine [Bentyl] 10 mg PO Q8 #20 cap 11/23/16 Amylase/Lipase/Protease [Pancrease 25,000 u PO TIDWM #30 ecc 12/17/16 51626 U-5000 U-[id number] U] Pantoprazole [Protonix EC Tab] 40 mg PO DAILY #30 ect 12/17/16 Dicyclomine [Bentyl] 20 mg PO Q12 PRN #20 tab 12/19/16 Dicyclomine [Bentyl] 20 mg PO Q12 PRN #20 tab 01/14/17 Ondansetron ODT [Zofran ODT] 4 mg PO Q6 PRN #16 odt 01/14/17 - Allergies Allergies/Adverse Reactions: Allergies Allergy/AdvReac Type Severity Reaction Status Date / Time No Known Allergies Allergy Verified 12/19/16 01:23 Review of Systems ROS Statement: Except As Marked, All Systems Reviewed And Found Negative Gastrointestinal: Positive for: Nausea, Vomiting, Abdominal Pain, Diarrhea Physical Exam - Reviewed Nursing Documentation Reviewed: Yes Vital Signs Reviewed: Yes - Physical Exam Appears: Positive for: Well, Non-toxic, No Acute Distress Head Exam: Positive for: ATRAUMATIC, NORMAL INSPECTION, NORMOCEPHALIC Skin: Positive for: Normal Color, Warm, DRY Eye Exam: Positive for: Normal appearance ENT: Positive for: Normal ENT Inspection Neck: Positive for: Normal, Painless ROM Cardiovascular/Chest: Positive for: Regular Rate, Rhythm Respiratory: Positive for: Normal Breath Sounds. Negative for: Accessory Muscle Use, Respiratory Distress Gastrointestinal/Abdominal: Positive for: Bowel Sounds, Soft, Tenderness (Mild diffuse ). Negative for: Normal Exam Back: Positive for: Normal Inspection Extremity: Positive for: Normal ROM Neurologic/Psych: Positive for: Alert, Oriented - Laboratory Results Result Diagrams: 04/12/17 01:49 04/12/17 01:49 - ECG O2 Sat by Pulse Oximetry: 98 Disposition - Clinical Impression Clinical Impression: Abdominal pain - Patient ED Disposition Is Patient to be Admitted: No Counseled Patient/Family Regarding: Diagnosis, Need For Followup - Disposition Disposition: Routine/Home Disposition Time: 03:12 Condition: GOOD Instructions: Abdominal Pain (ED)
--- NOTE | 2017-04-12 12:53 | CARD ---
APPROVED REPORT EKG Measurement Heart [id number] <Conclusion> Normal sinus rhythm Normal ECG
== END 2017-04-12 03:12 | disposition home or self-care (01) ==
LOC: H.ER 00:19
DX: R10.9 Unspecified abdominal pain (principal); F32.9 Major depressive disorder, single episode, unspecified; F41.9 Anxiety disorder, unspecified; G89.29 Other chronic pain; I10 Essential (primary) hypertension
CPT/HCPCS: 80053; 83690; 85025; 93005; 96360; 99282; J7040

== ENCOUNTER 2017-04-18 03:07 | Emergency (ER) | payer MEDICARE ==
[2017-04-18 03:12] VITALS: BMI 18.1
[2017-04-18 03:15] VITALS: BP 116/77; PULSE 85; RESP 16; TEMP 98.4; O2SAT 96
--- NOTE | 2017-04-18 03:35 | ED PDOC ---
HPI: Psych/Substance Abuse Time Seen by Provider: 04/18/17 03:09 Chief Complaint (Nursing): Abdominal Pain History Per: Patient Onset/Duration Of Symptoms: Mins (prior to arrival) Current Symptoms Are (Timing): Still Present Additional Complaint(s): Leonard Quezada is a 61 year old male, well known to ED with previous medical history of chronic abdominal pain, alcohol abuse, depression, and pancreatitis, presents to the emergency department for an evaluation of a possible overdose prior to arrival. Patient reported multiple episodes of non-bloody and non- bilious vomiting. Symptoms consistent with previous episodes of pancreatitis. Denies alcohol use or any other medical complaints. PMD: none provided Past Medical History Reviewed: Historical Data, Nursing Documentation, Vital Signs Vital Signs: Last Vital Signs Temp 98.4 F 04/18/17 03:12 Pulse 85 04/18/17 03:12 Resp 16 04/18/17 03:12 BP 116/77 04/18/17 03:12 Pulse Ox 96 04/18/17 03:12 - Medical History PMH: Anxiety, Depression, HTN, Pancreatitis (Recurrent), Chronic Pain (abdominal ) Denies: HIV, Chronic Kidney Disease - Family History Family History: States: Unknown Family Hx - Social History Current smoker - smoking cessation education provided: Yes Alcohol: > 2 Drinks/Day Drugs: Cannabis, Cocaine - Home Medications Home Medications: Ambulatory Orders Medication Instructions Recorded Alprazolam [Xanax] 0.5 mg PO TID 08/18/16 Paroxetine HCl [Paxil] 40 mg PO DAILY 08/18/16 oxyCODONE [oxyCODONE Immediate 5 mg PO Q6 PRN 10/29/16 Release Tab] Dicyclomine [Bentyl] 10 mg PO Q8 #20 cap 11/23/16 Amylase/Lipase/Protease [Pancrease 25,000 u PO TIDWM #30 ecc 12/17/16 29442 U-5000 [id number] U] Pantoprazole [Protonix EC Tab] 40 mg PO DAILY #30 ect 12/17/16 Dicyclomine [Bentyl] 20 mg PO Q12 PRN #20 tab 12/19/16 Dicyclomine [Bentyl] 20 mg PO Q12 PRN #20 tab 01/14/17 Ondansetron ODT [Zofran ODT] 4 mg PO Q6 PRN #16 odt 01/14/17 - Allergies Allergies/Adverse Reactions: Allergies Allergy/AdvReac Type Severity Reaction Status Date / Time No Known Allergies Allergy Verified 04/18/17 03:12 Review of Systems ROS Statement: Except As Marked, All Systems Reviewed And Found Negative Constitutional: Positive for: Other (possible overdose) Gastrointestinal: Positive for: Vomiting Physical Exam - Reviewed Nursing Documentation Reviewed: Yes Vital Signs Reviewed: Yes - Physical Exam Appears: Positive for: Well, Non-toxic, No Acute Distress Head Exam: Positive for: ATRAUMATIC, NORMAL INSPECTION, NORMOCEPHALIC Skin: Positive for: Normal Color Cardiovascular/Chest: Positive for: Regular Rate, Rhythm. Negative for: Chest Non Tender Respiratory: Positive for: Normal Breath Sounds. Negative for: Crackles, Rales , Rhonchi, Wheezing Gastrointestinal/Abdominal: Positive for: Normal Exam, Bowel Sounds, Soft. Negative for: Tenderness Neurologic/Psych: Positive for: Alert - Laboratory Results Result Diagrams: 04/18/17 04:00 04/18/17 04:00 - ECG O2 Sat by Pulse Oximetry: 96 (RA) Pulse Ox Interpretation: Normal Medical Decision Making Medical Decision Making: Initial Impression: Possible overdose Initial Plan: * Alcohol serum * Labs * Lipase * Urine dipstick * Bentyl 20mg * Toradol 10mg Time: 0450 --Labs: no significant abnormality. Noted ETOH level = 50. --Provider reinforced patient to abstain from alcohol use. --Patient to follow up with Dr. Lluvia FORDE. Clinical Impression: Abdominal pain Scribe Attestation: Documented by Maryjo Taylor, acting as a scribe for Milo Morfin MD. Provider Scribe Attestation: All medical record entries made by the Scribe were at my direction and personally dictated by me. I have reviewed the chart and agree that the record accurately reflects my personal performance of the history, physical exam, medical decision making, and the department course for this patient. I have also personally directed, reviewed, and agree with the discharge instructions and disposition. Disposition - Clinical Impression Clinical Impression: Abdominal pain - Patient ED Disposition Is Patient to be Admitted: No Doctor Will See Patient In The: Office Counseled Patient/Family Regarding: Studies Performed, Diagnosis, Need For Followup - Disposition Referrals: [facility] [Outside] Lluvia AYALA,MD Bill [Medical Doctor] - Disposition: Routine/Home Disposition Time: 04:50 Condition: STABLE Instructions: Abdominal Pain (ED) Forms: [facility] (Cuban)
[2017-04-18 04:15] LABS: BASO # 0.1 K/uL (0.0-0.2); BASO % 0.6 % (0.0-2.0); EOS # 0.1 K/uL (0.0-0.7); EOS % 0.9 % (0.0-4.0); HEMOGLOBIN 13.9 g/dL (12.0-18.0); LYMPH # 1.8 K/uL (1.0-4.3); LYMPH % 16.6 % (20.0-40.0); MEAN CELL VOLUME 95.2 fl (80.0-94.0); MEAN CORPUSCULAR HEMOGLOBIN 32.5 pg (27.0-31.0); MEAN CORPUSCULAR HGB CONC 34.2 g/dL (33.0-37.0); MEAN PLATELET VOLUME 8.3 fl (7.2-11.7); MONO # 0.7 K/uL (0.0-0.8); MONO % 6.6 % (0.0-10.0); NEUT # 8.2 K/uL (1.8-7.0); NEUT % 75.3 % (50.0-75.0); NRBC % 0.1 % (0.0-0.0); RBC 4.26 Mil/uL (4.40-5.90); RED CELL DISTRIBUTION WIDTH 14.1 % (11.5-14.5); WHITE BLOOD COUNT 10.9 K/uL (4.8-10.8)
[2017-04-18 04:23] LABS: ALB/GLOB RATIO 1.6 (1.0-2.1); ALBUMIN 4.5 g/dL (3.5-5.0); ALT/SGPT 35 U/L (21-72); AST/SGOT 26 U/L (17-59); BLOOD UREA NITROGEN 15 mg/dl (9-20); GFR AFRICAN-AMERICAN > 60; GFR NON-AFRICAN AMERICAN > 60; LIPASE 156 U/L (23-300)
[2017-04-18] MEDS ORDERED: Alum-Mag Hydrox-Simethicone Susp (30 mL) PO STA (04:52)
== END 2017-04-18 05:01 | disposition home or self-care (01) ==
LOC: H.ER 03:07
DX: R10.9 Unspecified abdominal pain (principal)
CPT/HCPCS: 80053; 83690; 85025; 96374; 96375; 99282; G0480; J1885; J2405

== ENCOUNTER 2017-04-28 18:55 | Emergency (ER) | payer MEDICARE ==
[2017-04-28 18:55] VITALS: BMI 18.1
[2017-04-28 19:04] VITALS: BP 147/69; PULSE 94; RESP 16; TEMP 97; O2SAT 99
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
== END 2017-04-28 20:52 | disposition home or self-care (01) ==
LOC: H.ER 18:55
DX: M54.9 Dorsalgia, unspecified (principal); F32.9 Major depressive disorder, single episode, unspecified; F41.9 Anxiety disorder, unspecified; G89.29 Other chronic pain; I10 Essential (primary) hypertension; K85.90 Acute pancreatitis without necrosis or infection, unspecified

== ENCOUNTER 2017-06-14 13:13 | Emergency (ER) | payer MEDICARE ==
[2017-06-14 13:14] VITALS: BMI 18.1
[2017-06-14 13:19] VITALS: BP 122/67; RESP 18; TEMP 98.4; O2SAT 96
[2017-06-14] MEDS ORDERED: Sodium Chloride 0.9% 1,000 ML IV STA (13:48)
--- NOTE | 2017-06-14 13:48 | ED PDOC ---
HPI: Abdomen Time Seen by Provider: 06/14/17 13:29 Chief Complaint (Nursing): GI Problem Chief Complaint (Provider): Abdominal Pain History Per: Patient History/Exam Limitations: no limitations Onset/Duration Of Symptoms: Hrs Outside of [place] travel?: No Current Symptoms Are (Timing): Still Present Quality Of Discomfort: "Pain" Associated Symptoms: Nausea, Vomiting, Diarrhea Additional Complaint(s): Leonard Quezada, a 61 year old male, with a past medical history of chronic pancreatitis presents to the Ed complaining of abdominal pain associated with nausea, vomiting and diarrhea that started around 3a this morning. The patient states that the pain radiates to the lower back. Patient states his last drink was 1 year ago. Past Medical History Reviewed: Historical Data, Nursing Documentation, Vital Signs Vital Signs: Last Vital Signs Temp 98.4 F 06/14/17 13:16 Pulse 84 06/14/17 13:16 Resp 18 06/14/17 13:16 BP 122/67 06/14/17 13:16 Pulse Ox 96 06/14/17 13:55 - Medical History PMH: Anxiety, Depression, HTN, Pancreatitis (Recurrent), Chronic Pain (abdominal ) Denies: HIV, Chronic Kidney Disease - Surgical History Surgical History: No Surg Hx - Family History Family History: States: Other Other Family History: CHF (mother) - Living Arrangements Living Arrangements: Alone - Social History Current smoker - smoking cessation education provided: Yes Ex-Smoker (has not smoked in the last 12 months): Yes Alcohol: None - Immunization History Hx Tetanus Toxoid Vaccination: No Hx Influenza Vaccination: Yes (2015) Hx Pneumococcal Vaccination: Yes (2015) - Home Medications Home Medications: Ambulatory Orders Medication Instructions Recorded Alprazolam [Xanax] 0.5 mg PO TID 08/18/16 Paroxetine HCl [Paxil] 40 mg PO DAILY 08/18/16 oxyCODONE/Acetaminophen [Percocet 1 ea PO QID #10 tab 06/09/17 5/325 mg Tab] - Allergies Allergies/Adverse Reactions: Allergies Allergy/AdvReac Type Severity Reaction Status Date / Time No Known Allergies Allergy Verified 06/02/17 14:41 Review of Systems ROS Statement: Except As Marked, All Systems Reviewed And Found Negative Gastrointestinal: Positive for: Nausea, Vomiting, Abdominal Pain, Diarrhea Physical Exam - Reviewed Nursing Documentation Reviewed: Yes Vital Signs Reviewed: Yes - Physical Exam Appears: Positive for: Non-toxic, No Acute Distress Head Exam: Positive for: ATRAUMATIC, NORMAL INSPECTION, NORMOCEPHALIC Skin: Positive for: Normal Color, Warm, Dry. Negative for: Rash Eye Exam: Positive for: Normal appearance, EOMI, PERRL. Negative for: Nystagmus ENT: Positive for: Other (Dry mucous membranes) Neck: Positive for: Normal, Painless ROM, Supple Cardiovascular/Chest: Positive for: Regular Rate, Rhythm, Chest Non Tender. Negative for: Tachycardia Respiratory: Positive for: Normal Breath Sounds. Negative for: Rales, Rhonchi, Wheezing, Respiratory Distress Gastrointestinal/Abdominal: Positive for: Bowel Sounds, Soft, Tenderness (Upper Abdominal Tenderness). Negative for: Guarding, Rebound Back: Positive for: Normal Inspection. Negative for: L CVA Tenderness, R CVA Tenderness Extremity: Positive for: Normal ROM. Negative for: Tenderness, Deformity, Swelling Lymphatic: Positive for: Normal Exam. Negative for: Adenopathy Neurologic/Psych: Positive for: Alert, Oriented, Gait - Laboratory Results Result Diagrams: 06/14/17 14:35 - ECG ECG: Positive for: Interpreted By Me ECG Rhythm: Positive for: Normal QRS Interpretation Of ECG: normal Rate: 70 O2 Sat by Pulse Oximetry: 96 (RA) Pulse Ox Interpretation: Normal Medical Decision Making Medical Decision Makin Initial Impression 61 year old male presenting with abdominal pain, nausea, vomiting and diarrhea Initial Plan: * VBG * EKG * CMP * Lipase * Troponin * Udip * CBC * NS 1000ml IV 1000mls/hr * Pepcid 20mg IVP * Zofran 4mg IVP * Urinalysis * Reevaluation Scribe Attestation Documented by Hue Lopez acting as a scribe for Aislinn Sierra MD. Provider Attestation All medical record entries made by the Scribe were at my direction and personally dictated by me. I have reviewed the chart and agree that the record accurately reflects my personal performance of the history, physical exam, medical decision making, and the department course for this patient. I have also personally directed, reviewed, and agree with the discharge instructions and disposition. Disposition - Clinical Impression Clinical Impression: Gastroenteritis, Pancreatitis - Patient ED Disposition Is Patient to be Admitted: Transfer of Care - Disposition Disposition: Transfer of Care Disposition Time: 14:52 Condition: GUARDED Forms: [facility] (Urdu) Patient Signed Over To: Katelyn Meraz
[2017-06-14 14:36] LABS: VENOUS BLOOD GAS BASE EXCESS 1.8 mmol/L (0.0-2.0); VENOUS BLOOD GAS PCO2 50 mmHg (40-60); VENOUS BLOOD PH 7.36 (7.32-7.43)
[2017-06-14 14:40] LABS: BASO % 0.6 % (0.0-2.0); EOS # 0.1 K/uL (0.0-0.7); EOS % 1.7 % (0.0-4.0); LYMPH # 1.7 K/uL (1.0-4.3); LYMPH % 29.1 % (20.0-40.0); MEAN CELL VOLUME 95.6 fl (80.0-94.0); MEAN CORPUSCULAR HEMOGLOBIN 32.6 pg (27.0-31.0); MEAN CORPUSCULAR HGB CONC 34.1 g/dL (33.0-37.0); MEAN PLATELET VOLUME 7.9 fl (7.2-11.7); MONO # 0.4 K/uL (0.0-0.8); MONO % 7.1 % (0.0-10.0); NEUT # 3.7 K/uL (1.8-7.0); NEUT % 61.5 % (50.0-75.0); NRBC % 0.1 % (0.0-0.0); RED CELL DISTRIBUTION WIDTH 13.6 % (11.5-14.5); WHITE BLOOD COUNT 5.9 K/uL (4.8-10.8)
[2017-06-14 14:52] LABS: ALB/GLOB RATIO 1.5 (1.0-2.1); ALKALINE PHOSPHATASE 65 U/L (38-126); ALT/SGPT 27 U/L (21-72); AST/SGOT 23 U/L (17-59); BILIRUBIN,TOTAL 0.2 mg/dl (0.2-1.3); BLOOD UREA NITROGEN 15 mg/dl (9-20); CALCIUM 9.9 mg/dL (8.4-10.2); CARBON DIOXIDE 25 mmol/L (22-30); CHLORIDE 108 mmol/L (98-107); GFR AFRICAN-AMERICAN > 60; GLUCOSE,RANDOM 85 mg/dL (75-110); LIPASE 172 U/L (23-300); SODIUM 146 mmol/l (132-148)
[2017-06-14 14:53] VITALS: PULSE 70
[2017-06-14 14:54] LABS: POTASSIUM 4.8 MMOL/L (3.6-5.0)
[2017-06-14 15:03] LABS: RBC URINE < 1 /hpf (0-3); URINE BILIRUBIN NEGATIVE (NEGATIVE); URINE BLOOD NEGATIVE (NEGATIVE); URINE COLOR STRAW (YELLOW); URINE GLUCOSE (UA) NEG (Normal); URINE KETONE NEGATIVE (NEGATIVE); URINE LEUKOCYTE ESTERASE NEG Leu/uL (Negative); URINE PROTEIN NEGATIVE (NEGATIVE); URINE UROBILINOGEN 0.2-1.0 mg/dL (0.2-1.0); WBC URINE < 1 /hpf (0-5)
--- NOTE | 2017-06-14 15:12 | ED PDOC ---
- Laboratory Results Result Diagrams: 06/14/17 14:35 06/14/17 14:35 - ECG O2 Sat by Pulse Oximetry: 96 (RA) Pulse Ox Interpretation: Normal - Progress Re-evaluation Time: 15:50 Condition: Re-examined, Improved Medical Decision Making Medical Decision Making: Time: 15:00 --Patient is signed out to me from Dr. Aislinn Sierra MD, pending labs and reevaluation Time: 15:08 --Urine drug screen --Alcohol serum Time: 15:25 --Upon reevaluation, patient is still having pain. Will give 4 mg Morphine IV in ED. -Last admission was at [facility] last month. Dx was chronic pancreatitis and pain control. Seen by GI who recommended PPI and outpatient endoscopy. -Patient chart indicated history of smoking, alcohol , and substance abuse. --I discussed the hospital's narcotic policy with the patient. Also discussed [place] state regulations regarding opioid prescriptions. --Patient understands he needs to follow up with [facility] for outpatient pain management. --There are no indications for further imaging, observation, and treatment in ED. ED work up did not reveal any acute emergency condition requiring emergent or urgent intervention or testing. Patient was given appropriate follow up. -- Scribe Attestation: Documented by Parris Conner, acting as a scribe for Katelyn Meraz MD Provider Scribe Attestation: All medical record entries made by the Scribe were at my direction and personally dictated by me. I have reviewed the chart and agree that the record accurately reflects my personal performance of the history, physical exam, medical decision making, and the department course for this patient. I have also personally directed, reviewed, and agree with the discharge instructions and disposition. Disposition Doctor Will See Patient In The: Office Counseled Patient/Family Regarding: Studies Performed, Diagnosis, Need For Followup - Clinical Impression Clinical Impression: Gastroenteritis, Pancreatitis, Substance abuse, Smoker, Abdominal pain, Chronic abdominal pain - POA Present On Arrival: None - Disposition Referrals: Pk Archer MD [Medical Doctor[facility] - [facility] [Outside] Disposition: Routine/Home Disposition Time: 15:51 Condition: GOOD Additional Instructions: Take your medications as instructed. Follow up with PCP, [facility], and pain specialist within 1 week. Prescriptions: Esomeprazole Magnesium [Nexium] 20 mg PO DAILY #30 capsule. Instructions: Pancreatitis (ED), Chronic Pain (ED) Forms: [facility] (Italian)
--- NOTE | 2017-06-15 10:19 | CARD ---
APPROVED REPORT EKG Measurement Heart [id number] <Conclusion> Normal sinus rhythm Biatrial enlargement Abnormal ECG
== END 2017-06-14 16:15 | disposition home or self-care (01) ==
LOC: H.ER 13:13
DX: K52.9 Noninfective gastroenteritis and colitis, unspecified (principal); K85.90 Acute pancreatitis without necrosis or infection, unspecified; I10 Essential (primary) hypertension
CPT/HCPCS: 80053; 81003; 82803; 83690; 84484; 85025; 93005; 96374; 96375; 99282; G0480; J1885; J2270; J2405; J7040

== ENCOUNTER 2017-09-17 19:04 | Emergency (ER) | payer MEDICARE ==
[2017-09-17 19:04] VITALS: BMI 18.1
[2017-09-17 19:29] VITALS: BP 116/75; PULSE 90; RESP 18; TEMP 98.1; O2SAT 99
[2017-09-17] MEDS ORDERED: Morphine 4 MG/ML VIAL IVP STA (20:00)
[2017-09-17] MEDS ORDERED: Sodium Chloride 0.9% 1,000 ML IV STA ×2 (20:00→21:24)
[2017-09-17] MEDS ORDERED: Morphine 4 MG/ML VIAL ONE (20:08)
--- NOTE | 2017-09-17 20:21 | ED PDOC ---
HPI:Nausea, Vomiting, Diarrhea Time Seen by Provider: 09/17/17 19:43 Chief Complaint (Nursing): Abdominal Pain Chief Complaint (Provider): Abdominal Pain History Per: Patient History/Exam Limitations: no limitations Onset/Duration Of Symptoms: Days (x1) Current Symptoms Are (Timing): Still Present Additional Complaint(s): 62 year old male with previous medical history of pancreatitis, who presents to the emergency department with a complaint of sharp and constant upper abdominal pain associated with nausea, 5 episodes of nonbloody, nonbilious vomiting and 3 episodes of watery diarrhea ongoing for 1 day. Denied any fever, chills, difficulty urinating, bloody urine or incontinence. Of note, patient also reported drinking alcohol in the last 18 months. PMD: none provided Past Medical History Reviewed: Historical Data, Nursing Documentation, Vital Signs Vital Signs: Last Vital Signs Temp 98.1 F 09/17/17 19:07 Pulse 90 09/17/17 19:07 Resp 18 09/17/17 19:07 BP 116/75 09/17/17 19:07 Pulse Ox 99 09/17/17 19:07 - Medical History PMH: Anxiety, Depression, HTN, Pancreatitis (Recurrent), Chronic Pain (abdominal ) Denies: HIV, Chronic Kidney Disease - Family History Family History: States: Unknown Family Hx - Social History Alcohol: None Drugs: Denies - Immunization History Hx Tetanus Toxoid Vaccination: No Hx Influenza Vaccination: Yes (2015) Hx Pneumococcal Vaccination: Yes (2015) - Home Medications Home Medications: Ambulatory Orders Medication Instructions Recorded Alprazolam [Xanax] 0.5 mg PO TID 08/18/16 Paroxetine HCl [Paxil] 40 mg PO DAILY 08/18/16 oxyCODONE/Acetaminophen [Percocet 1 ea PO QID #10 tab 06/09/17 5/325 mg Tab] Chlorhexidine 0.12% [Peridex] 10 ml PO BID #1 bottle 06/14/17 Esomeprazole Magnesium [Nexium] 20 mg PO DAILY #30 capsule. 06/14/17 Dicyclomine [Dicyclomine HCl] 10 mg PO QID #30 cap 09/17/17 Ondansetron [Zofran] 4 mg PO Q8H #12 tab 09/17/17 - Allergies Allergies/Adverse Reactions: Allergies Allergy/AdvReac Type Severity Reaction Status Date / Time No Known Allergies Allergy Verified 09/17/17 19:06 Review of Systems ROS Statement: Except As Marked, All Systems Reviewed And Found Negative Constitutional: Negative for: Fever, Chills Gastrointestinal: Positive for: Nausea, Vomiting (nonbloody, nonbilious x5), Abdominal Pain (upper "stabbing"), Diarrhea (watery x3) Genitourinary Male: Negative for: Dysuria, Incontinence, Hematuria Physical Exam - Reviewed Nursing Documentation Reviewed: Yes Vital Signs Reviewed: Yes - Physical Exam Appears: Positive for: Well, Non-toxic, No Acute Distress Head Exam: Positive for: ATRAUMATIC, NORMAL INSPECTION, NORMOCEPHALIC Skin: Positive for: Normal Color Eye Exam: Positive for: Normal appearance ENT: Positive for: Normal ENT Inspection Neck: Positive for: Normal Cardiovascular/Chest: Positive for: Regular Rate, Rhythm, Chest Non Tender Respiratory: Positive for: Normal Breath Sounds. Negative for: Decreased Breath Sounds, Wheezing, Respiratory Distress Gastrointestinal/Abdominal: Positive for: Soft, Tenderness (epigastric when palpated). Negative for: Normal Exam, Distended Back: Positive for: Normal Inspection. Negative for: L CVA Tenderness, R CVA Tenderness Extremity: Positive for: Normal ROM (lower). Negative for: Pedal Edema ( bilateral) Neurologic/Psych: Positive for: Alert (x3), Oriented - Laboratory Results Result Diagrams: 09/17/17 20:10 09/17/17 21:40 - ECG O2 Sat by Pulse Oximetry: 99 (RA) Pulse Ox Interpretation: Normal Medical Decision Making Medical Decision Making: Initial Impression: Pancreatitis vs. gastroenteritis Initial Plan: * Alcohol serum * BMP * Urine drug screen * LDH * Lipase * Liver profile * CBC * Morphine 4mg IVP * NS 1,000ml IV per 1,000mls/hr * Zofran inj 4mg IVP Time: 2200 --Upon provider reevaluation, patient is medically stable, tolerating PO, and requires no further treatment in the ED at this time. Patient will be discharged home with Rx for Dicyclomine HCL and Zofran 4mg. Counseling was provided and all questions were answered regarding diagnosis and need for follow up with PMD. There is agreement to discharge plan. Return if symptoms persist or worsen. Clinical Impression: Gastroenteritis Scribe Attestation: Documented by Maryjo Taylor, acting as a scribe for Cornelio Giron MD. Provider Scribe Attestation: All medical record entries made by the Scribe were at my direction and personally dictated by me. I have reviewed the chart and agree that the record accurately reflects my personal performance of the history, physical exam, medical decision making, and the department course for this patient. I have also personally directed, reviewed, and agree with the discharge instructions and disposition. Disposition - Clinical Impression Clinical Impression: Gastroenteritis - Patient ED Disposition Is Patient to be Admitted: No Counseled Patient/Family Regarding: Studies Performed, Diagnosis, Need For Followup - Disposition Referrals: [facility] [Outside] [facility] [Outside] Disposition: Routine/Home Disposition Time: 22:00 Condition: STABLE Prescriptions: Dicyclomine [Dicyclomine HCl] 10 mg PO QID #30 cap Ondansetron [Zofran] 4 mg PO Q8H #12 tab Instructions: Gastroenteritis (ED) Forms: [facility] (Mongolian)
[2017-09-17 20:38] LABS: BASO % 0.6 % (0.0-2.0); EOS # 0.1 K/uL (0.0-0.7); EOS % 1.8 % (0.0-4.0); HEMOGLOBIN 13.3 g/dL (12.0-18.0); LYMPH # 1.6 K/uL (1.0-4.3); LYMPH % 24.7 % (20.0-40.0); MEAN CELL VOLUME 94.5 fl (80.0-94.0); MEAN CORPUSCULAR HEMOGLOBIN 31.5 pg (27.0-31.0); MEAN CORPUSCULAR HGB CONC 33.3 g/dL (33.0-37.0); MEAN PLATELET VOLUME 8.4 fl (7.2-11.7); MONO # 0.6 K/uL (0.0-0.8); MONO % 8.8 % (0.0-10.0); NEUT # 4.1 K/uL (1.8-7.0); NEUT % 64.1 % (50.0-75.0); NRBC % 0.1 % (0.0-0.0); RBC 4.24 Mil/uL (4.40-5.90); RED CELL DISTRIBUTION WIDTH 13.5 % (11.5-14.5); WHITE BLOOD COUNT 6.5 K/uL (4.8-10.8)
[2017-09-17 20:53] LABS: ALB/GLOB RATIO 1.3 (1.0-2.1); ALBUMIN 4.4 g/dL (3.5-5.0); ALT/SGPT 25 U/L (21-72); AST/SGOT 45 U/L (17-59); BLOOD UREA NITROGEN 17 mg/dl (9-20); CALCIUM 9.5 mg/dL (8.4-10.2); GFR AFRICAN-AMERICAN > 60; GFR NON-AFRICAN AMERICAN > 60; LIPASE 186 U/L (23-300)
[2017-09-17 22:28] LABS: BARBITURATES, UR NEGATIVE (NEGATIVE); PHENCYCLIDINE, UR NEGATIVE (NEGATIVE)
[2017-09-17 22:30] LABS: BENZODIAZEPINES, UR POSITIVE (NEGATIVE); OPIATES, UR POSITIVE (NEGATIVE)
== END 2017-09-17 22:47 | disposition home or self-care (01) ==
LOC: H.ER 19:04
DX: K52.9 Noninfective gastroenteritis and colitis, unspecified (principal); K85.90 Acute pancreatitis without necrosis or infection, unspecified; F32.9 Major depressive disorder, single episode, unspecified; F41.9 Anxiety disorder, unspecified; G89.29 Other chronic pain; I10 Essential (primary) hypertension
CPT/HCPCS: 80048; 80076; 83615; 83690; 84132; 85025; 96361; 96374; 96375; 99282; C9113; G0480; J2270; J2405; J7040

== ENCOUNTER 2017-09-24 22:32 | Emergency (ER) | payer MEDICARE ==
[2017-09-24 22:33] VITALS: BMI 18.1
[2017-09-24 23:03] VITALS: BP 150/83; RESP 18; TEMP 98.7; O2SAT 98
[2017-09-24] MEDS ORDERED: Sodium Chloride 0.9% 1,000 ML IV STA (23:10)
--- NOTE | 2017-09-24 23:39 | ED PDOC ---
HPI: General Adult Time Seen by Provider: 09/24/17 22:46 Chief Complaint (Nursing): Abdominal Pain History Per: Patient Additional Complaint(s): Pt. states approximately 4 hours ago he developed epigastric pain associated with 5 episodes of non-bloody vomiting and 5 episodes of non-bloody diarrhea. Reports that he has a hx of chronic pancreatitis and symptoms are similar. Further states that he had the same symptoms 1 week ago and was seen in this ED and had blood work and dc'd. Reports symptoms resolved up until 4 hours ago. Denies hematemesis, BRBPR, hematochezia, melena, fever, chest pain, SOB, palpitations. Past Medical History Reviewed: Historical Data, Nursing Documentation, Vital Signs Vital Signs: Last Vital Signs Temp 98.7 F 09/24/17 22:35 Pulse 79 09/25/17 01:24 Resp 18 09/24/17 22:35 BP 150/83 09/24/17 22:35 Pulse Ox 98 09/25/17 01:24 - Medical History PMH: Anxiety, Depression, HTN, Pancreatitis (Recurrent), Chronic Pain (abdominal ) Denies: HIV, Chronic Kidney Disease - Family History Family History: States: No Known Family Hx - Immunization History Hx Tetanus Toxoid Vaccination: No Hx Influenza Vaccination: Yes (2015) Hx Pneumococcal Vaccination: Yes (2015) - Home Medications Home Medications: Ambulatory Orders Medication Instructions Recorded Alprazolam [Xanax] 0.5 mg PO TID 08/18/16 Paroxetine HCl [Paxil] 40 mg PO DAILY 08/18/16 oxyCODONE/Acetaminophen [Percocet 1 ea PO QID #10 tab 06/09/17 5/325 mg Tab] Chlorhexidine 0.12% [Peridex] 10 ml PO BID #1 bottle 06/14/17 Esomeprazole Magnesium [Nexium] 20 mg PO DAILY #30 capsule. 06/14/17 Dicyclomine [Dicyclomine HCl] 10 mg PO QID #30 cap 09/17/17 Ondansetron [Zofran] 4 mg PO Q8H #12 tab 09/17/17 Dicyclomine [Bentyl] 20 mg PO Q8 PRN #20 tab 09/25/17 Ondansetron ODT [Zofran ODT] 4 mg PO TID #21 odt 09/25/17 - Allergies Allergies/Adverse Reactions: Allergies Allergy/AdvReac Type Severity Reaction Status Date / Time No Known Allergies Allergy Verified 09/24/17 22:35 Review of Systems ROS Statement: Except As Marked, All Systems Reviewed And Found Negative Gastrointestinal: Positive for: Nausea, Vomiting, Abdominal Pain, Diarrhea Physical Exam - Physical Exam Appears: Positive for: Well, Non-toxic, No Acute Distress Skin: Positive for: Normal Color, Warm. Negative for: Rash Eye Exam: Positive for: Normal appearance, EOMI, PERRL ENT: Positive for: Normal ENT Inspection Neck: Positive for: Normal, Painless ROM Cardiovascular/Chest: Positive for: Regular Rate, Rhythm Respiratory: Positive for: CNT, Normal Breath Sounds Gastrointestinal/Abdominal: Positive for: Normal Exam, Bowel Sounds, Soft, Other (no ecchymosis). Negative for: Tenderness, Distended Back: Positive for: Normal Inspection. Negative for: L CVA Tenderness, R CVA Tenderness Extremity: Positive for: Normal ROM Neurologic/Psych: Positive for: Alert, Oriented - Laboratory Results Result Diagrams: 09/24/17 23:49 09/24/17 23:49 - ECG ECG: Positive for: Interpreted By Mt ECG Rhythm: Positive for: Sinus Rhythm. Negative for: ST/T Changes Rate: 79 O2 Sat by Pulse Oximetry: 98 - Progress ED Course And Treament: Labs ordered. EKG ordered. IV NS bolus, pepcid 20mg IV, morphine 4mg, zofran 4mg IV ordered. Re-evaluation Time: :23 (Reports complete relief of pain. ) Condition: Re-examined, Improved Disposition - Clinical Impression Clinical Impression: Gastroenteritis - Patient ED Disposition Is Patient to be Admitted: No - Disposition Referrals: [facility] [Outside] [facility] [Outside] Disposition: Routine/Home Disposition Time: :23 Condition: STABLE Additional Instructions: Follow up with [facility] for further evaluation. Prescriptions: Dicyclomine [Bentyl] 20 mg PO Q8 PRN #20 tab PRN Reason: abdominal pain Ondansetron ODT [Zofran ODT] 4 mg PO TID #21 odt Instructions: Gastroenteritis (ED) Forms: [facility] (Guinean)
[2017-09-24 23:41] VITALS: PULSE 79
[2017-09-24] MEDS ORDERED: Morphine 4 MG/ML VIAL IVP STA (23:50)
[2017-09-24 23:54] LABS: BASO % 0.5 % (0.0-2.0); EOS # 0.1 K/uL (0.0-0.7); HEMOGLOBIN 14.2 g/dL (12.0-18.0); LYMPH # 1.4 K/uL (1.0-4.3); LYMPH % 18.5 % (20.0-40.0); MEAN CELL VOLUME 95.3 fl (80.0-94.0); MEAN CORPUSCULAR HEMOGLOBIN 32.2 pg (27.0-31.0); MEAN CORPUSCULAR HGB CONC 33.8 g/dL (33.0-37.0); MEAN PLATELET VOLUME 8.1 fl (7.2-11.7); MONO # 0.5 K/uL (0.0-0.8); NEUT # 5.6 K/uL (1.8-7.0); NRBC % 0.1 % (0.0-0.0); RBC 4.42 Mil/uL (4.40-5.90); RED CELL DISTRIBUTION WIDTH 13.5 % (11.5-14.5); WHITE BLOOD COUNT 7.7 K/uL (4.8-10.8)
[2017-09-24] MEDS ORDERED: Morphine 4 MG/ML VIAL ONE (23:58)
[2017-09-25 00:10] LABS: ALB/GLOB RATIO 1.5 (1.0-2.1); ALBUMIN 4.3 g/dL (3.5-5.0); ALT/SGPT 31 U/L (21-72); AST/SGOT 21 U/L (17-59); BLOOD UREA NITROGEN 14 mg/dl (9-20); CALCIUM 9.5 mg/dL (8.4-10.2); GFR AFRICAN-AMERICAN > 60; GFR NON-AFRICAN AMERICAN > 60; LIPASE 146 U/L (23-300)
--- NOTE | 2017-09-25 17:51 | CARD ---
APPROVED REPORT EKG Measurement Heart [id number] <Conclusion> Normal sinus rhythm Right atrial enlargement Minimal voltage criteria for LVH, may be normal variant Borderline ECG
== END 2017-09-25 01:50 | disposition home or self-care (01) ==
LOC: H.ER 22:32
DX: K52.9 Noninfective gastroenteritis and colitis, unspecified (principal); F32.9 Major depressive disorder, single episode, unspecified; F41.9 Anxiety disorder, unspecified; G89.29 Other chronic pain; I11.9 Hypertensive heart disease without heart failure; I51.7 Cardiomegaly; K86.1 Other chronic pancreatitis
CPT/HCPCS: 80053; 83690; 84484; 85025; 93005; 96361; 96374; 96375; 99282; G0480; J2270; J2405; J7040

== ENCOUNTER 2017-11-09 18:25 | Emergency (ER) | payer MEDICARE, OTHER ==
[2017-11-09 18:25] VITALS: BMI 18.1
[2017-11-09 18:31] VITALS: BP 141/95; PULSE 77; RESP 18; TEMP 98.2; O2SAT 98
[2017-11-09] MEDS ORDERED: Morphine 4 MG/ML VIAL IVP STA (19:11)
[2017-11-09] MEDS ORDERED: Sodium Chloride 0.9% 1,000 ML IV STA (19:20)
[2017-11-09 19:32] LABS: BASO # 0.1 K/uL (0.0-0.2); BASO % 0.8 % (0.0-2.0); EOS # 0.1 K/uL (0.0-0.7); EOS % 0.7 % (0.0-4.0); LYMPH # 1.9 K/uL (1.0-4.3); LYMPH % 25.7 % (20.0-40.0); MEAN CELL VOLUME 94.4 fl (80.0-94.0); MEAN CORPUSCULAR HEMOGLOBIN 31.5 pg (27.0-31.0); MEAN CORPUSCULAR HGB CONC 33.4 g/dL (33.0-37.0); MEAN PLATELET VOLUME 7.9 fl (7.2-11.7); MONO # 0.5 K/uL (0.0-0.8); MONO % 6.4 % (0.0-10.0); NEUT % 66.4 % (50.0-75.0); RBC 4.45 Mil/uL (4.40-5.90); RED CELL DISTRIBUTION WIDTH 13.6 % (11.5-14.5); WHITE BLOOD COUNT 7.5 K/uL (4.8-10.8)
[2017-11-09 19:38] LABS: ALB/GLOB RATIO 1.4 (1.0-2.1); ALBUMIN 4.5 g/dL (3.5-5.0); ALT/SGPT 28 U/L (21-72); AST/SGOT 28 U/L (17-59); BLOOD UREA NITROGEN 14 mg/dl (9-20); CALCIUM 10.3 mg/dL (8.4-10.2); GFR AFRICAN-AMERICAN > 60; GFR NON-AFRICAN AMERICAN > 60; LIPASE 109 U/L (23-300)
--- NOTE | 2017-11-09 19:38 | ED PDOC ---
HPI: Abdomen Time Seen by Provider: 11/09/17 19:10 Chief Complaint (Nursing): Abdominal Pain Chief Complaint (Provider): nausea, vomiting, and diarrhea History Per: Patient History/Exam Limitations: no limitations Onset/Duration Of Symptoms: Days (1x) Additional Complaint(s): 62 year old male with a past medical history of pancreatitis, depression, and anxiety presents to the ED complaining of nausea, vomiting, and diarrhea onset one day ago. States he has had four episodes of non-bilious and non-bloody vomiting and four episodes of watery diarrhea. Has not drank in year. At home he takes Paxil and Xanax. Denies intake of alcohol or drugs. PMD: Non [facility] Provider Past Medical History Reviewed: Historical Data, Nursing Documentation, Vital Signs Vital Signs: Last Vital Signs Temp 98.2 F 11/09/17 18:29 Pulse 77 11/09/17 18:29 Resp 18 11/09/17 18:29 BP 141/95 H 11/09/17 18:29 Pulse Ox 98 11/09/17 21:17 - Medical History PMH: Anxiety, Depression, HTN, Pancreatitis (Recurrent), Chronic Pain (abdominal ) Denies: HIV, Chronic Kidney Disease - Surgical History Surgical History: No Surg Hx - Family History Family History: States: Unknown Family Hx - Immunization History Hx Tetanus Toxoid Vaccination: Yes Hx Influenza Vaccination: Yes Hx Pneumococcal Vaccination: Yes - Home Medications Home Medications: Ambulatory Orders Medication Instructions Recorded Alprazolam [Xanax] 0.5 mg PO TID 08/18/16 Paroxetine HCl [Paxil] 40 mg PO DAILY 08/18/16 Acetaminophen with Codeine 1 each PO Q6 PRN #1 tablet 10/15/17 [Tylenol with Codeine #3 Tablet] Esomeprazole Magnesium [Nexium 20 mg PO DAILY #14 capsule. 10/15/17 24Hr] Ranitidine HCl [Zantac] 150 mg PO BID #20 tablet 10/15/17 - Allergies Allergies/Adverse Reactions: Allergies Allergy/AdvReac Type Severity Reaction Status Date / Time No Known Allergies Allergy Verified 10/15/17 14:42 Review of Systems ROS Statement: Except As Marked, All Systems Reviewed And Found Negative Gastrointestinal: Positive for: Nausea, Vomiting (four episodes of non-bilious and non-bloody), Diarrhea (four episodes of watery ) Physical Exam - Reviewed Nursing Documentation Reviewed: Yes Vital Signs Reviewed: Yes - Physical Exam Appears: Positive for: Well, Non-toxic, No Acute Distress Head Exam: Positive for: ATRAUMATIC, NORMAL INSPECTION, NORMOCEPHALIC Skin: Positive for: Normal Color, Warm, Dry Eye Exam: Positive for: EOMI, Normal appearance, PERRL ENT: Positive for: Normal ENT Inspection Neck: Positive for: Normal, Painless ROM, Supple. Negative for: Decreased ROM, Limited ROM Cardiovascular/Chest: Positive for: Regular Rate, Rhythm. Negative for: Murmur Respiratory: Positive for: Normal Breath Sounds. Negative for: Decreased Breath Sounds, Accessory Muscle Use, Wheezing Gastrointestinal/Abdominal: Positive for: Soft, Tenderness (mild epigastric). Negative for: Guarding, Rebound Back: Positive for: Normal Inspection. Negative for: L CVA Tenderness, R CVA Tenderness Extremity: Positive for: Normal ROM. Negative for: Tenderness, Pedal Edema, Deformity Neurologic/Psych: Positive for: Alert, Oriented (x3) - Laboratory Results Result Diagrams: 11/09/17 19:19 11/09/17 19:19 - ECG O2 Sat by Pulse Oximetry: 98 (RA) Pulse Ox Interpretation: Normal Medical Decision Making Medical Decision Making: Time: 19:11 Initial Impression: Gastroenteritis versus Pancreatitis Initial Plan: --CMP --Drug Screen --Lactic Acid --CBC --Morphine 4mg --Normal Saline 1,000 mls/hr --Zofran Inj 4mg --Urinalysis --Reevaluation 2116 Patient feeling better, no longer vomiting, tolerating PO. Labs, vitals wnl. Clinical Impression: Gastroenteritis Upon provider evaluation patient is medically stable, and requires no further treatment in the ED at this time. Patient will be discharged. Counseling was provided and all questions were answered regarding diagnosis and need for follow up with PMD. There is agreement to discharge plan. Return if symptoms persist or worsen. Documented by Ivett Avalos acting as a scribe for Cornelio Giron MD. All medical record entries made by the Scribe were at my direction and personally dictated by me. I have reviewed the chart and agree that the record accurately reflects my personal performance of the history, physical exam, medical decision making, and the department course for this patient. I have also personally directed, reviewed, and agree with the discharge instructions and disposition. Disposition - Clinical Impression Clinical Impression: Gastroenteritis - Patient ED Disposition Is Patient to be Admitted: No - Disposition Referrals: Bill Teixeira MD [Medical Doctor] - Disposition: Routine/Home Disposition Time: 21:17 Condition: IMPROVED Additional Instructions: YOU MUST FOLLOWUP WITH GASTROENTEROLOGY IN 1 - 2 DAYS. Instructions: Viral Gastroenteritis Forms: [employer] (Nepali)
[2017-11-09] MEDS ORDERED: Morphine 4 MG/ML VIAL ONE ×2 (19:40→21:27)
[2017-11-09 20:25] LABS: URINE BILIRUBIN NEGATIVE (NEGATIVE); URINE BLOOD NEGATIVE (NEGATIVE); URINE CLARITY SLIGHTY-CLOUDY (Clear); URINE COLOR YELLOW (YELLOW); URINE GLUCOSE (UA) NEG (Normal); URINE LEUKOCYTE ESTERASE NEG Leu/uL (Negative); URINE NITRATE NEGATIVE (NEGATIVE); URINE PROTEIN NEGATIVE (NEGATIVE); URINE UROBILINOGEN 0.2-1.0 mg/dL (0.2-1.0)
[2017-11-09] MEDS ORDERED: DiphenhydrAMINE 50 mg/ml Inj IVP STA (20:35)
[2017-11-09 20:36] LABS: BARBITURATES, UR NEGATIVE (NEGATIVE); BENZODIAZEPINES, UR POSITIVE (NEGATIVE); OPIATES, UR NEGATIVE (NEGATIVE); PHENCYCLIDINE, UR NEGATIVE (NEGATIVE)
[2017-11-09] MEDS ORDERED: Morphine 4 MG/ML VIAL IM STA (21:11)
== END 2017-11-09 21:32 | disposition home or self-care (01) ==
LOC: H.ER 18:25
DX: K52.9 Noninfective gastroenteritis and colitis, unspecified (principal); I10 Essential (primary) hypertension; F17.210 Nicotine dependence, cigarettes, uncomplicated
CPT/HCPCS: 80053; 81003; 83605; 83690; 85025; 96361; 96372; 96374; 96375; 99283; G0480; J1200; J1885; J2270; J2405; J2550; J7040

== ENCOUNTER 2017-12-02 22:30 | Observation (INO) | payer MEDICARE ==
[2017-12-02 22:30] VITALS: BMI 18.1
[2017-12-02] MEDS ORDERED: Sodium Chloride 0.9% 1,000 ML IV STA (22:58)
[2017-12-02] MEDS ORDERED: Iohexol 240 (50 ml) PO ONE (23:00)
[2017-12-02] MEDS ORDERED: Iohexol 240 (50 ml) ONE (23:11)
[2017-12-02] MEDS ORDERED: Morphine 4 MG/ML VIAL ONE (23:12)
--- NOTE | 2017-12-02 23:19 | ED PDOC ---
HPI: Abdomen Time Seen by Provider: 12/02/17 22:45 Chief Complaint (Nursing): Abdominal Pain Chief Complaint (Provider): Nausea, Vomiting, and Diarrhea History Per: Patient History/Exam Limitations: no limitations Onset/Duration Of Symptoms: Days (3 days ago) Current Symptoms Are (Timing): Still Present Location Of Pain/Discomfort: Diffuse, Epigastric Additional Complaint(s): 62 yo male with a history of pancreatitis, presents to the ED complaining of 3 episodes nausea, diffuse abdominal pain, non-bilious, non-bloody vomiting, and watery diarrhea, onset of 3 days ago. Patient notes that his pain worsens epigastric region, and today he started to have a fever with a cough productive of yellow sputum. Of note, patient reports that he was admitted to a hospital recently, but signed out against medical advice because he wanted to go smoke a cigarette. PCP: Dm Abreu Past Medical History Reviewed: Historical Data, Nursing Documentation, Vital Signs Vital Signs: Last Vital Signs Temp 97.5 F L 12/03/17 04:19 Pulse 75 12/03/17 04:19 Resp 18 12/03/17 04:19 BP 110/60 12/03/17 04:19 Pulse Ox 97 12/03/17 04:19 - Medical History PMH: Anxiety, Depression, HTN, Pancreatitis (Recurrent), Chronic Pain (abdominal ) Denies: HIV, Chronic Kidney Disease - Family History Family History: States: Unknown Family Hx - Social History Current smoker - smoking cessation education provided: Yes Alcohol: None Drugs: Denies - Immunization History Hx Tetanus Toxoid Vaccination: Yes Hx Influenza Vaccination: Yes Hx Pneumococcal Vaccination: Yes - Home Medications Home Medications: Ambulatory Orders Medication Instructions Recorded Alprazolam [Xanax] 0.5 mg PO TID 08/18/16 Paroxetine HCl [Paxil] 20 mg PO DAILY 08/18/16 - Allergies Allergies/Adverse Reactions: Allergies Allergy/AdvReac Type Severity Reaction Status Date / Time No Known Allergies Allergy Verified 10/15/17 14:42 Review of Systems ROS Statement: Except As Marked, All Systems Reviewed And Found Negative Constitutional: Positive for: Fever Respiratory: Positive for: Cough Gastrointestinal: Positive for: Nausea, Vomiting, Abdominal Pain, Diarrhea. Negative for: Melena, Hematochezia, Hematemesis Physical Exam - Reviewed Nursing Documentation Reviewed: Yes Vital Signs Reviewed: Yes - Physical Exam Appears: Positive for: Well, Non-toxic, No Acute Distress Head Exam: Positive for: ATRAUMATIC, NORMAL INSPECTION, NORMOCEPHALIC Skin: Positive for: Normal Color, Warm, DRY Eye Exam: Positive for: EOMI, Normal appearance, PERRL ENT: Positive for: Normal ENT Inspection Neck: Positive for: Normal, Painless ROM Cardiovascular/Chest: Positive for: Regular Rate, Rhythm. Negative for: Murmur Respiratory: Positive for: Normal Breath Sounds. Negative for: Respiratory Distress Gastrointestinal/Abdominal: Positive for: Soft, Tenderness (tenderness to palpation in epigastric region). Negative for: Distended, Guarding, Rebound Back: Positive for: Normal Inspection Extremity: Positive for: Normal ROM. Negative for: Pedal Edema, Deformity Neurologic/Psych: Positive for: Alert, Oriented (x3). Negative for: Motor/ Sensory Deficits - Laboratory Results Result Diagrams: 12/02/17 23:41 12/02/17 23:41 - ECG O2 Sat by Pulse Oximetry: 95 (RA) Pulse Ox Interpretation: Normal Medical Decision Making Medical Decision Making: Time: --22:58 Impression: --Hx of Pancreatitis presenting with abdominal pain and vomiting Differential: --Likely viral gastroenteritis; Plan: --ABD & Pelvis CT --Labs --Drug Screen, urine --Lipase --Labs --Chest Two Views X-ray --Iohexol 50ml PO --Morphine 2mg IVP --IV Fluids --Promehtazine 25mg IV --Blood Culture --Urine Culture --Urinalysis - Reassess --23:17 Will check Lipase, CT, and VBG, given the patient was complaining of fever. --23:32 EXAM: XR Chest, 2 Views CLINICAL HISTORY: 62 years old, male; Signs and symptoms; Fever; Additional info: Fever, abd pain TECHNIQUE: Frontal and lateral views of the chest. COMPARISON: CR - CHEST TWO VIEWS (PA/LAT) 2016-10-29 19:55 FINDINGS: Lungs: Patchy foci of parenchymal opacity right perihilar region and laterally within the right lung. Changes suggestive of focal pneumonitis. Pleural space: No pleural effusion. No pneumothorax. Mediastinum is unremarkable. Heart size stable. Bones are unremarkable. Heart: Unremarkable. No cardiomegaly. Mediastinum: Unremarkable. Bones/joints: Unremarkable. IMPRESSION: Right upper and middle lobe pneumonia. Remainder of findings as above. 03:35 --EXAM: CT Abdomen and Pelvis With Intravenous Contrast CLINICAL HISTORY: 62 years old, male; Pain; Abdominal pain; Acute; Additional info: HX of pancreatitis, vomiting, febrile TECHNIQUE: Axial computed tomography images of the abdomen and pelvis with intravenous contrast. All CT scans at this facility use one or more dose reduction techniques, viz.: automated exposure control; ma/kV adjustment per patient size (including targeted exams where dose is matched to indication; i.e. head); or iterative reconstruction technique. 589 images are submitted. Coronal and sagittal reformatted images were created and reviewed. CONTRAST: 95 mL of omnipaque 300 administered intravenously. COMPARISON: No relevant prior studies available. FINDINGS: Lower thorax: Trace bilateral pleural fusions. There are patchy parenchymal infiltrates in the right mid lobe lingula bilateral lower lobes with bronchiectasis and chronic lung disease. Correlation with clinical data is recommended if edema versus pneumonia or aspiration pneumonia is clinically suspected. Minimal pericardial effusion. Moderate hiatal hernia with delayed emptying versus gastroesophageal reflux. ABDOMEN: Liver: Enlarged fatty liver. Gallbladder and bile ducts: Unremarkable. No ductal dilation. Pancreas: Unremarkable. No mass. No ductal dilation. Spleen: Unremarkable. No splenomegaly. Adrenals: Bilateral adrenal nodules. Statistically they can represent adrenal adenomas but are not confirmed on the CT scan. The mean Hounsfield unit of left adrenal nodule is 17 and upright adrenal nodule is 52. Kidneys and ureters: Unremarkable. No solid mass. No hydronephrosis. Stomach and bowel: Large amount of stool in the colon. Correlation with patient' s clinical history of constipation is recommended. Diverticulosis. No mucosal thickening. Appendix: Normal appendix. PELVIS: Bladder: Partially distended bladder 11.4 cm with bladder wall thickening. Correlation with urinalysis is recommended only if clinical cystitis is suspected. Reproductive: Enlarged prostate gland. ABDOMEN and PELVIS: Intraperitoneal space: Unremarkable. No free air. No significant fluid collection. Bones/joints: No acute fracture. No dislocation. Soft tissues: Unremarkable. Vasculature: Unremarkable. No abdominal aortic aneurysm. Lymph nodes: Unremarkable. No enlarged lymph nodes. IMPRESSION: 1. Trace bilateral pleural fusions. There are patchy parenchymal infiltrates in the right mid lobe lingula bilateral lower lobes with bronchiectasis and chronic lung disease. Correlation with clinical data is recommended if edema versus pneumonia or aspiration pneumonia is clinically suspected. 2. Probable bilateral adrenal adenomas which are not confirmed on this examination. Correlation with internal medicine evaluation and further workup or followup as recommended by patient's clinical data. Patient has possible HCAP given recent admission at [facility] for the past 48 hours. Will treat for HCAP and admit. Patient has fever, white count, and elevated HR meeting sepsis criteria. However BP is normal. CT is negative for acute intrabdominal pathology. Treated with Van and Cefepime. Case discussed with ROSEANN Lee of Dr. Abreu's service. Scribe Attestation: Documented by Jamel Vargas acting as a scribe for Cornelio Giron MD. Provider Attestation: All medical record entries made by the Scribe were at my direction and personally dictated by me. I have reviewed the chart and agree that the record accurately reflects my personal performance of the history, physical exam, medical decision making, and the department course for this patient. I have also personally directed, reviewed, and agree with the discharge instructions and disposition. Disposition - Clinical Impression Clinical Impression: Pneumonia, Sepsis - Patient ED Disposition Is Patient to be Admitted: Yes - Disposition Disposition Time: 00:00 Condition: FAIR
[2017-12-02] MEDS ORDERED: Promethazine 25 MG in Sodium Chloride 0.9% 100 ML IVPB ONE (23:30)
--- NOTE | 2017-12-02 23:33 | RAD ---
EXAM: XR Chest, 2 Views CLINICAL HISTORY: 62 years old, male; Signs and symptoms; Fever; Additional info: Fever, abd pain TECHNIQUE: Frontal and lateral views of the chest. COMPARISON: CR - CHEST TWO VIEWS (PA/LAT) 2016-10-29 19:55 FINDINGS: Lungs: Patchy foci of parenchymal opacity right perihilar region and laterally within the right lung. Changes suggestive of focal pneumonitis. Pleural space: No pleural effusion. No pneumothorax. Mediastinum is unremarkable. Heart size stable. Bones are unremarkable. Heart: Unremarkable. No cardiomegaly. Mediastinum: Unremarkable. Bones/joints: Unremarkable. IMPRESSION: Right upper and middle lobe pneumonia. Remainder of findings as above.
[2017-12-02 23:45] LABS: BASO % 0.2 % (0.0-2.0); EOS % 0.3 % (0.0-4.0); HEMOGLOBIN 13.1 g/dL (12.0-18.0); MEAN CELL VOLUME 94.7 fl (80.0-94.0); MEAN CORPUSCULAR HEMOGLOBIN 31.3 pg (27.0-31.0); MEAN CORPUSCULAR HGB CONC 33.1 g/dL (33.0-37.0); MONO # 0.5 K/uL (0.0-0.8); NEUT # 12.1 K/uL (1.8-7.0); NEUT % 88.5 % (50.0-75.0); PLATELET COUNT 165 K/uL (130-400); RBC 4.18 Mil/uL (4.40-5.90); RED CELL DISTRIBUTION WIDTH 14.4 % (11.5-14.5); WHITE BLOOD COUNT 13.7 K/uL (4.8-10.8)
[2017-12-02] MEDS ORDERED: Cefepime 2 GM in Sodium Chloride 0.9% 100 ML IVPB STA (23:47)
[2017-12-02 23:56] LABS: ALB/GLOB RATIO 1.3 (1.0-2.1); ALT/SGPT 25 U/L (21-72); AST/SGOT 35 U/L (17-59); BLOOD UREA NITROGEN 12 mg/dl (9-20); CALCIUM 9.2 mg/dL (8.4-10.2); GFR AFRICAN-AMERICAN > 60; GFR NON-AFRICAN AMERICAN > 60; LIPASE 145 U/L (23-300)
[2017-12-03 00:24] LABS: VENOUS BLOOD GAS BASE EXCESS -0.2 mmol/L (0.0-2.0); VENOUS BLOOD GAS PCO2 41 mmHg (40-60); VENOUS BLOOD GAS PO2 31 mm/Hg (30-55); VENOUS BLOOD PH 7.39 (7.32-7.43)
[2017-12-03 01:08] LABS: URINE BILIRUBIN NEGATIVE (NEGATIVE); URINE BLOOD NEGATIVE (NEGATIVE); URINE CLARITY CLEAR (Clear); URINE COLOR COLORLESS (YELLOW); URINE GLUCOSE (UA) NEG (Normal); URINE LEUKOCYTE ESTERASE NEG Leu/uL (Negative); URINE PROTEIN NEGATIVE (NEGATIVE); URINE UROBILINOGEN 0.2-1.0 mg/dL (0.2-1.0)
[2017-12-03 01:20] LABS: ANISOCYTOSIS SLIGHT; BANDS 2 % (0-2); HYPOCHROMIC MODERATE; LYMPHOCYTE 7 % (20-50); MONOCYTE 3 % (0-10); NEUTROPHIL 88 % (42-75); PLATELET ESTIMATE NORMAL (NORMAL); TOTAL CELLS COUNTED 100
[2017-12-03 01:27] LABS: BARBITURATES, UR NEGATIVE (NEGATIVE); BENZODIAZEPINES, UR NEGATIVE (NEGATIVE); OPIATES, UR POSITIVE (NEGATIVE); PHENCYCLIDINE, UR NEGATIVE (NEGATIVE)
[2017-12-03] MEDS ORDERED: Iohexol 300 100 ML IJ ONE (01:37)
[2017-12-03] MEDS ORDERED: Morphine 4 MG/ML VIAL ONE (03:35)
--- NOTE | 2017-12-03 03:36 | CT ---
EXAM: CT Abdomen and Pelvis With Intravenous Contrast CLINICAL HISTORY: 62 years old, male; Pain; Abdominal pain; Acute; Additional info: HX of pancreatitis, vomiting, febrile TECHNIQUE: Axial computed tomography images of the abdomen and pelvis with intravenous contrast. All CT scans at this facility use one or more dose reduction techniques, viz.: automated exposure control; ma/kV adjustment per patient size (including targeted exams where dose is matched to indication; i.e. head); or iterative reconstruction technique. 589 images are submitted. Coronal and sagittal reformatted images were created and reviewed. CONTRAST: 95 mL of omnipaque 300 administered intravenously. COMPARISON: No relevant prior studies available. FINDINGS: Lower thorax: Trace bilateral pleural fusions. There are patchy parenchymal infiltrates in the right mid lobe lingula bilateral lower lobes with bronchiectasis and chronic lung disease. Correlation with clinical data is recommended if edema versus pneumonia or aspiration pneumonia is clinically suspected. Minimal pericardial effusion. Moderate hiatal hernia with delayed emptying versus gastroesophageal reflux. ABDOMEN: Liver: Enlarged fatty liver. Gallbladder and bile ducts: Unremarkable. No ductal dilation. Pancreas: Unremarkable. No mass. No ductal dilation. Spleen: Unremarkable. No splenomegaly. Adrenals: Bilateral adrenal nodules. Statistically they can represent adrenal adenomas but are not confirmed on the CT scan. The mean Hounsfield unit of left adrenal nodule is 17 and upright adrenal nodule is 52. Kidneys and ureters: Unremarkable. No solid mass. No hydronephrosis. Stomach and bowel: Large amount of stool in the colon. Correlation with patient's clinical history of constipation is recommended. Diverticulosis. No mucosal thickening. Appendix: Normal appendix. PELVIS: Bladder: Partially distended bladder 11.4 cm with bladder wall thickening. Correlation with urinalysis is recommended only if clinical cystitis is suspected. Reproductive: Enlarged prostate gland. ABDOMEN and PELVIS: Intraperitoneal space: Unremarkable. No free air. No significant fluid collection. Bones/joints: No acute fracture. No dislocation. Soft tissues: Unremarkable. Vasculature: Unremarkable. No abdominal aortic aneurysm. Lymph nodes: Unremarkable. No enlarged lymph nodes. IMPRESSION: 1. Trace bilateral pleural fusions. There are patchy parenchymal infiltrates in the right mid lobe lingula bilateral lower lobes with bronchiectasis and chronic lung disease. Correlation with clinical data is recommended if edema versus pneumonia or aspiration pneumonia is clinically suspected. 2. Probable bilateral adrenal adenomas which are not confirmed on this examination. Correlation with internal medicine evaluation and further workup or followup as recommended by patient's clinical data.
--- NOTE | 2017-12-03 08:52 | CP.PCM.HP ---
History of Present Illness - History of Present Illness History of Present Illness: Patient evaluated with Dr Abreu during morning rounds 62 yo male with a history of pancreatitis, admitted to hosp after presenting with 3 episodes nausea, diffuse abdominal pain, NBNB vomiting, and watery diarrhea for the previous 3 days. Also c/o fever with a cough productive of yellow sputum for 1 day. Recently left AMA from [facility] after short admission. At ED patient found to have suspected pneumonitis/pneumonia and he is admitted for poss HCAP, urine postive for opioids ProBnp slightly elevated and normal Lipase and mild leukocytosis. Today patient seen at bedside in not acute distress ans c/o diffuse abd pain. After initially denying opioid use he admitted taking "1" percocet at home. Present on Admission - Present on Admission Any Indicators Present on Admission: No Review of Systems - Review of Systems All systems: reviewed and no additional remarkable complaints except (Those described on HPI) Past Patient History - Infectious Disease Hx of Infectious Diseases: None - Past Medical History & Family History Past Medical History?: Yes - Past Social History Smoking Status: Heavy Smoker > 10 Cigarettes Daily Drugs: Opiates - CARDIAC Hx Cardiac Disorders: Yes Hx Hypertension: Yes - PULMONARY Hx Respiratory Disorders: No - NEUROLOGICAL Hx Neurological Disorder: No - HEENT Hx HEENT Problems: No - RENAL Hx Chronic Kidney Disease: No - ENDOCRINE/METABOLIC Hx Endocrine Disorders: No - HEMATOLOGICAL/ONCOLOGICAL Hx Blood Disorders: No Hx Human Immunodeficiency Virus (HIV): No - INTEGUMENTARY Hx Dermatological Problems: No - MUSCULOSKELETAL/RHEUMATOLOGICAL Hx Musculoskeletal Disorders: No Hx Falls: No - GASTROINTESTINAL Hx Gastrointestinal Disorders: Yes Hx Pancreatitis: Yes (Recurrent) - GENITOURINARY/GYNECOLOGICAL Hx Genitourinary Disorders: No - PSYCHIATRIC Hx Psychophysiologic Disorder: Yes Hx Anxiety: Yes Hx Depression: Yes Hx Substance Use: No - SURGICAL HISTORY Hx Surgeries: No - ANESTHESIA Hx Anesthesia: No Hx Anesthesia Reactions: No Hx Malignant Hyperthermia: No Meds Allergies/Adverse Reactions: Allergies Allergy/AdvReac Type Severity Reaction Status Date / Time No Known Allergies Allergy Verified 10/15/17 14:42 Physical Exam - Constitutional Appears: Non-toxic, No Acute Distress Additional comments: Disheveled - Eye Exam Eye Exam: EOMI, PERRL - ENT Exam ENT Exam: Mucous Membranes Moist - Respiratory Exam Respiratory Exam: Decreased Breath Sounds, Clear to Auscultation Bilateral, NORMAL BREATHING PATTERN. absent: Rales, Rhonchi, Wheezes, Respiratory Distress - Cardiovascular Exam Cardiovascular Exam: REGULAR RHYTHM, +S1, +S2. absent: Gallop - GI/Abdominal Exam GI & Abdominal Exam: Normal Bowel Sounds, Soft, Tenderness (Diffuse, mild). absent: Firm, Guarding, Rebound, Rigid - Extremities Exam Extremities exam: Positive for: normal capillary refill, pedal pulses present. Negative for: calf tenderness, pedal edema - Back Exam Back exam: absent: CVA tenderness (L), CVA tenderness (R) - Neurological Exam Neurological exam: Alert, Oriented x3 - Skin Skin Exam: Normal Color, Warm Results - Vital Signs Recent Vital Signs: Last Vital Signs Temp 98.6 F 12/03/17 08:00 Pulse 71 12/03/17 08:00 Resp 20 12/03/17 08:00 BP 116/67 12/03/17 08:00 Pulse Ox 96 12/03/17 08:00 - Labs Result Diagrams: 12/02/17 23:41 12/02/17 23:41 Labs: Laboratory Results - last 24 hr 12/02/17 12/02/17 12/03/17 23:41 23:41 00:08 WBC 13.7 H D RBC 4.18 L Hgb 13.1 Hct 39.6 MCV 94.7 H MCH 31.3 H MCHC 33.1 RDW 14.4 Plt Count 165 MPV 8.0 Neut % (Auto) 88.5 H Lymph % (Auto) 7.0 L [place] % (Auto) 4.0 Eos % (Auto) 0.3 Baso % (Auto) 0.2 Neut # (Auto) 12.1 H Lymph # (Auto) 1.0 [place] # (Auto) 0.5 Eos # (Auto) 0.0 Baso # (Auto) 0.0 Neutrophils % (Manual) 88 H Band Neutrophils % 2 Lymphocytes % (Manual) 7 L Monocytes % (Manual) 3 Platelet Estimate Normal Hypochromasia (manual) Moderate Anisocytosis (manual) Slight pO2 VBG pH VBG pCO2 VBG HCO3 VBG Total CO2 VBG O2 Sat (Calc) VBG Base Excess VBG Potassium Glucose Lactate FiO2 Sodium 141 Potassium 4.3 Chloride 106 Carbon Dioxide 20 L Anion Gap 19 BUN 12 Creatinine 0.7 L Est GFR ( Amer) > 60 Est GFR (Non-Af Amer) > 60 Random Glucose 110 Calcium 9.2 Total Bilirubin 0.7 AST 35 ALT 25 Alkaline Phosphatase 71 NT-Pro-B Natriuret Pep 2200 H Total Protein 7.2 Albumin 4.0 Globulin 3.2 Albumin/Globulin Ratio 1.3 Lipase 145 Venous Blood Potassium Urine Color Urine Clarity Urine pH Ur Specific [place] Urine Protein Urine Glucose (UA) Urine Ketones Urine Blood Urine Nitrate Urine Bilirubin Urine Urobilinogen Ur Leukocyte Esterase Urine RBC (Auto) Urine Opiates Screen Urine Methadone Screen Ur Barbiturates Screen Ur Phencyclidine Scrn Ur Amphetamines Screen U Benzodiazepines Scrn U Oth Cocaine Metabols U Cannabinoids Screen 12/03/17 12/03/17 12/03/17 00:21 01:03 01:03 WBC RBC Hgb Hct MCV MCH MCHC RDW Plt Count MPV Neut % (Auto) Lymph % (Auto) [place] % (Auto) Eos % (Auto) Baso % (Auto) Neut # (Auto) Lymph # (Auto) [place] # (Auto) Eos # (Auto) Baso # (Auto) Neutrophils % (Manual) Band Neutrophils % Lymphocytes % (Manual) Monocytes % (Manual) Platelet Estimate Hypochromasia (manual) Anisocytosis (manual) pO2 31 VBG pH 7.39 VBG pCO2 41 VBG HCO3 23.7 VBG Total CO2 26.1 VBG O2 Sat (Calc) 67.0 H VBG Base Excess -0.2 L VBG Potassium 3.8 Glucose 102 Lactate 1.0 FiO2 21.0 Sodium 137.0 Potassium Chloride 106.0 Carbon Dioxide Anion Gap BUN Creatinine Est GFR ( Amer) Est GFR (Non-Af Amer) Random Glucose Calcium Total Bilirubin AST ALT Alkaline Phosphatase NT-Pro-B Natriuret Pep Total Protein Albumin Globulin Albumin/Globulin Ratio Lipase Venous Blood Potassium 3.8 Urine Color Colorless Urine Clarity Clear Urine pH 7.0 Ur Specific [place] < 1.005 Urine Protein Negative Urine Glucose (UA) Neg Urine Ketones Negative Urine Blood Negative Urine Nitrate Negative Urine Bilirubin Negative Urine Urobilinogen 0.2-1.0 Ur Leukocyte Esterase Neg Urine RBC (Auto) < 1 Urine Opiates Screen Positive H Urine Methadone Screen Negative Ur Barbiturates Screen Negative Ur Phencyclidine Scrn Negative Ur Amphetamines Screen Negative U Benzodiazepines Scrn Negative U Oth Cocaine Metabols Negative U Cannabinoids Screen Negative Assessment & Plan - Assessment and Plan (Free Text) Assessment: Suspected aspiration pneumonia vs HCAP mild leukocytosis Legionella ag ordered F/U UCx and BCx Opioid abuse Elevate Probnp. R/O CHF IV abx Unasyn + Zithromax Echocardiogram F/u results Lasix 20 mg IV once Protonix Avoid opioids Watch for withdrawal symptoms
[2017-12-03] MEDS: Pantoprazole 20 mg EC Tab PO SCH (10:07)
[2017-12-03] MEDS: Saccharomyces Boulardi 250 mg Cap PO SCH ×2 (10:07→16:57)
[2017-12-03] MEDS: Azithromycin 500 MG in Sodium Chloride 0.9% 250 ML IVPB SCH (10:17)
[2017-12-03] MEDS ORDERED: Morphine 4 MG/ML VIAL IVP ONE (12:51)
--- NOTE | 2017-12-03 16:48 | CARD ---
APPROVED REPORT EXAM: Two-dimensional and M-mode echocardiogram with Doppler and color Doppler. Other Information Quality : GoodRhythm : NSR INDICATION Dyspnea Elevated Troponin 2D DIMENSIONS IVSd0.87 (0.7-1.1cm)LVDd4.40 (3.9-5.9cm) LVOT Diameter2.20 (1.8-2.4cm)PWd0.87 (0.7-1.1cm) IVSs1.09 (0.8-1.2cm)LVDs3.02 (2.5-4.0cm) FS (%) 31.3 %PWs1.08 (0.8-1.2cm) LVEF (%)55.0 (>50%) M-Mode DIMENSIONS Left Atrium (MM)4.97 (2.5-4.0cm)IVSd0.59 (0.7-1.1cm) Aortic Root2.83 (2.2-3.7cm)LVDd5.48 (4.0-5.6cm) Aortic Cusp Exc.1.90 (1.5-2.0cm)PWd0.75 (0.7-1.1cm) IVSs0.95 cmFS (%) 39 % LVDs3.35 (2.0-3.8cm)PWs1.21 cm Mitral Valve MV E Iebglvqo28.5cm/sMV DECEL [id number] A Rojpelqr09.7cm/s MV LXC20foR/A ratio1.3MVA (PHT)2.91cm2 TDI Lateral E' Peak V14.26cm/sMedial E' Peak V9.37cm/sE/Lateral E'5.4 E/Medial E'8.2 Pulmonary Valve PV Peak [place]anu020.2cm/s LEFT VENTRICLE The left ventricle is normal size. There is normal left ventricular wall thickness. The left ventricular function is normal. The left ventricular ejection fraction is within the normal range. There is normal LV segmental wall motion. The left ventricular diastolic function is normal. RIGHT VENTRICLE The right ventricle is normal size. There is normal right ventricular wall thickness. The right ventricular systolic function is normal. ATRIA The left atrium is mildly dilated. The right atrium size is normal. AORTIC VALVE The aortic valve is normal in structure. No aortic regurgitation is present. There is no aortic valvular stenosis. MITRAL VALVE The mitral valve is normal in structure. There is no mitral valve stenosis. There is no mitral valve regurgitation noted. TRICUSPID VALVE The tricuspid valve is normal in structure. There is trace to mild tricuspid regurgitation. PULMONIC VALVE The pulmonary valve is normal in structure. There is no pulmonic valvular regurgitation. GREAT VESSELS The aortic root is normal in size. The IVC is normal in size and collapses >50% with inspiration. PERICARDIAL EFFUSION The pericardium appears normal. There is no pleural effusion. <Conclusion> The left ventricle is normal size. There is normal left ventricular wall thickness. The left ventricular function is normal. The left ventricular ejection fraction is within the normal range. There is normal LV segmental wall motion. The left ventricular diastolic function is normal.
[2017-12-04 05:46] LABS: BASO # 0.1 K/uL (0.0-0.2); BASO % 0.8 % (0.0-2.0); EOS # 0.1 K/uL (0.0-0.7); EOS % 0.8 % (0.0-4.0); HEMOGLOBIN 12.5 g/dL (12.0-18.0); LYMPH # 1.5 K/uL (1.0-4.3); LYMPH % 20.2 % (20.0-40.0); MEAN CELL VOLUME 94.1 fl (80.0-94.0); MEAN CORPUSCULAR HEMOGLOBIN 31.5 pg (27.0-31.0); MEAN CORPUSCULAR HGB CONC 33.5 g/dL (33.0-37.0); MONO # 0.6 K/uL (0.0-0.8); MONO % 7.6 % (0.0-10.0); NEUT # 5.3 K/uL (1.8-7.0); NEUT % 70.6 % (50.0-75.0); RBC 3.98 Mil/uL (4.40-5.90); RED CELL DISTRIBUTION WIDTH 14.1 % (11.5-14.5); WHITE BLOOD COUNT 7.5 K/uL (4.8-10.8)
[2017-12-04 06:11] LABS: BLOOD UREA NITROGEN 14 mg/dl (9-20); CALCIUM 8.8 mg/dL (8.4-10.2); GFR AFRICAN-AMERICAN > 60; GFR NON-AFRICAN AMERICAN > 60
[2017-12-04] MEDS ORDERED: Enoxaparin 40 mg Syringe SC SCH (09:00)
[2017-12-04 09:01] VITALS: RESP 20
[2017-12-04] MEDS: Azithromycin 500 MG in Sodium Chloride 0.9% 250 ML IVPB SCH ×2 (09:15→11:10)
[2017-12-04] MEDS: Saccharomyces Boulardi 250 mg Cap PO SCH (09:53)
[2017-12-04] MEDS: Pantoprazole 20 mg EC Tab PO SCH (09:53)
--- NOTE | 2017-12-04 12:09 | CP.PCM.DIS ---
Provider - Provider Date of Admission: 12/03/17 00:48 Attending physician: Dm Abreu MD Time Spent in preparation of Discharge (in minutes): 30 Diagnosis - Discharge Diagnosis (1) Aspiration pneumonia Status: Acute Hospital Course - Lab Results Lab Results: Micro Results 12/03/17 06:00 Urine,Clean Catch Urine Culture - Final No Growth (<1,000 CFU/ML) 12/02/17 23:35 Blood-Venous Blood Culture - Preliminary NO GROWTH AFTER 24 HOURS Most Recent Lab Values WBC 7.5 K/uL (4.8-10.8) 12/04/17 05:00 RBC 3.98 Mil/uL (4.40-5.90) L 12/04/17 05:00 Hgb 12.5 g/dL (12.0-18.0) 12/04/17 05:00 Hct 37.5 % (35.0-51.0) 12/04/17 05:00 MCV 94.1 fl (80.0-94.0) H 12/04/17 05:00 MCH 31.5 pg (27.0-31.0) H 12/04/17 05:00 MCHC 33.5 g/dL (33.0-37.0) 12/04/17 05:00 RDW 14.1 % (11.5-14.5) 12/04/17 05:00 Plt Count 164 K/uL (130-400) 12/04/17 05:00 MPV 8.0 fl (7.2-11.7) 12/04/17 05:00 Neut % (Auto) 70.6 % (50.0-75.0) 12/04/17 05:00 Lymph % (Auto) 20.2 % (20.0-40.0) 12/04/17 05:00 [place] % (Auto) 7.6 % (0.0-10.0) 12/04/17 05:00 Eos % (Auto) 0.8 % (0.0-4.0) 12/04/17 05:00 Baso % (Auto) 0.8 % (0.0-2.0) 12/04/17 05:00 Neut # (Auto) 5.3 K/uL (1.8-7.0) 12/04/17 05:00 Lymph # (Auto) 1.5 K/uL (1.0-4.3) 12/04/17 05:00 [place] # (Auto) 0.6 K/uL (0.0-0.8) 12/04/17 05:00 Eos # (Auto) 0.1 K/uL (0.0-0.7) 12/04/17 05:00 Baso # (Auto) 0.1 K/uL (0.0-0.2) 12/04/17 05:00 Neutrophils % (Manual) 88 % (42-75) H 12/02/17 23:41 Band Neutrophils % 2 % (0-2) 12/02/17 23:41 Lymphocytes % (Manual) 7 % (20-50) L 12/02/17 23:41 Monocytes % (Manual) 3 % (0-10) 12/02/17 23:41 Platelet Estimate Normal (NORMAL) 12/02/17 23:41 Hypochromasia (manual) Moderate 12/02/17 23:41 Anisocytosis (manual) Slight 12/02/17 23:41 pO2 31 mm/Hg (30-55) 12/03/17 00:21 VBG pH 7.39 (7.32-7.43) 12/03/17 00:21 VBG pCO2 41 mmHg (40-60) 12/03/17 00:21 VBG HCO3 23.7 mmol/L 12/03/17 00:21 VBG Total CO2 26.1 mmol/L (22-28) 12/03/17 00:21 VBG O2 Sat (Calc) 67.0 % (40-65) H 12/03/17 00:21 VBG Base Excess -0.2 mmol/L (0.0-2.0) L 12/03/17 00:21 VBG Potassium 3.8 mmol/L (3.6-5.2) 12/03/17 00:21 Sodium 137.0 mmol/L (132-148) 12/03/17 00:21 Chloride 106.0 mmol/L (98-107) 12/03/17 00:21 Glucose 102 mg/dL (75-110) 12/03/17 00:21 Lactate 1.0 mmol/L (0.7-2.1) 12/03/17 00:21 FiO2 21.0 % 12/03/17 00:21 Sodium 145 mmol/l (132-148) 12/04/17 05:00 Potassium 3.9 MMOL/L (3.6-5.0) 12/04/17 05:00 Chloride 110 mmol/L (98-107) H 12/04/17 05:00 Carbon Dioxide 22 mmol/L (22-30) 12/04/17 05:00 Anion Gap 17 (10-20) 12/04/17 05:00 BUN 14 mg/dl (9-20) 12/04/17 05:00 Creatinine 0.9 mg/dl (0.8-1.5) 12/04/17 05:00 Est GFR ( Amer) > 60 12/04/17 05:00 Est GFR (Non-Af Amer) > 60 12/04/17 05:00 Random Glucose 89 mg/dL (75-110) 12/04/17 05:00 Calcium 8.8 mg/dL (8.4-10.2) 12/04/17 05:00 Total Bilirubin 0.7 mg/dl (0.2-1.3) 12/02/17 23:41 AST 35 U/L (17-59) 12/02/17 23:41 ALT 25 U/L (21-72) 12/02/17 23:41 Alkaline Phosphatase 71 U/L (38-126) 12/02/17 23:41 NT-Pro-B Natriuret Pep 2200 pg/ml (0-900) H 12/03/17 00:08 Total Protein 7.2 G/DL (6.3-8.2) 12/02/17 23:41 Albumin 4.0 g/dL (3.5-5.0) 12/02/17 23:41 Globulin 3.2 gm/dL (2.2-3.9) 12/02/17 23:41 Albumin/Globulin Ratio 1.3 (1.0-2.1) 12/02/17 23:41 Lipase 145 U/L (23-300) 12/02/17 23:41 Venous Blood Potassium 3.8 mmol/L (3.6-5.2) 12/03/17 00:21 Urine Color Colorless (YELLOW) 12/03/17 01:03 Urine Clarity Clear (Clear) 12/03/17 01:03 Urine pH 7.0 (5.0-8.0) 12/03/17 01:03 Ur Specific [place] < 1.005 (1.003-1.030) 12/03/17 01:03 Urine Protein Negative mg/dL (NEGATIVE) 12/03/17 01:03 Urine Glucose (UA) Neg mg/dL (Normal) 12/03/17 01:03 Urine Ketones Negative mg/dL (NEGATIVE) 12/03/17 01:03 Urine Blood Negative (NEGATIVE) 12/03/17 01:03 Urine Nitrate Negative (NEGATIVE) 12/03/17 01:03 Urine Bilirubin Negative (NEGATIVE) 12/03/17 01:03 Urine Urobilinogen 0.2-1.0 mg/dL (0.2-1.0) 12/03/17 01:03 Ur Leukocyte Esterase Neg Marie/uL (Negative) 12/03/17 01:03 Urine RBC (Auto) < 1 /hpf (0-3) 12/03/17 01:03 Urine Opiates Screen Positive (NEGATIVE) H 12/03/17 01:03 Urine Methadone Screen Negative (NEGATIVE) 12/03/17 01:03 Ur Barbiturates Screen Negative (NEGATIVE) 12/03/17 01:03 Ur Phencyclidine Scrn Negative (NEGATIVE) 12/03/17 01:03 Ur Amphetamines Screen Negative (NEGATIVE) 12/03/17 01:03 U Benzodiazepines Scrn Negative (NEGATIVE) 12/03/17 01:03 U Oth Cocaine Metabols Negative (NEGATIVE) 12/03/17 01:03 U Cannabinoids Screen Negative (NEGATIVE) 12/03/17 01:03 - Hospital Course Hospital Course: 62 y/o admitted for pneumonitis with suspected aspiration pneumonia due to vomiting episodes before presenting to hosp treated with IV abx for 2 days, remained stable, with VS stable and no WBC, neg UCx. Patient is stable today to be DC home to c/w treatment as outpatient for suspected bacterial pneumonia due to aspiration. Discharge Exam - Head Exam Head Exam: ATRAUMATIC, NORMAL INSPECTION, NORMOCEPHALIC - Eye Exam Eye Exam: EOMI, PERRL - ENT Exam ENT Exam: Mucous Membranes Moist - Respiratory Exam Respiratory Exam: Decreased Breath Sounds, NORMAL BREATHING PATTERN. absent: Rales, Wheezes, Respiratory Distress, Stridor - Cardiovascular Exam Cardiovascular Exam: REGULAR RHYTHM, +S1, +S2. absent: Gallop - GI/Abdominal Exam GI & Abdominal Exam: Normal Bowel Sounds, Soft, Unremarkable. absent: Tenderness - Neurological Exam Neurological exam: Alert, Oriented x3 - Skin Skin Exam: Normal Color, Warm Discharge Plan - Discharge Medications Prescriptions: Amoxicillin/Clavulanate [Augmentin 875 MG-125 MG] 1 tab PO Q12 #14 tab Azithromycin [Zithromax Tri-Chuck] 500 mg PO DAILY #5 tablet - Follow Up Plan Condition: STABLE Disposition: HOME/ ROUTINE Instructions: Pneumonia, Adult (DC) Referrals: Chadwick Carranza MD [Staff Provider] -
[2017-12-04 13:36] VITALS: BP 138/87; PULSE 68; TEMP 97.9; O2SAT 98
== END 2017-12-04 16:00 | disposition home or self-care (01) ==
LOC: H.ER 22:30 → H.ERHOLD 12-03 00:48 → H.TEL 12-03 04:17
PROVIDERS: ADMIT Internal Medicine; ATTEND Internal Medicine
DX: J69.0 Pneumonitis due to inhalation of food and vomit (principal); F11.10 Opioid abuse, uncomplicated; F17.200 Nicotine dependence, unspecified, uncomplicated; I10 Essential (primary) hypertension; J47.9 Bronchiectasis, uncomplicated; F32.9 Major depressive disorder, single episode, unspecified; F41.9 Anxiety disorder, unspecified; G89.29 Other chronic pain; Z79.899 Other long term (current) drug therapy; J15.9 Unspecified bacterial pneumonia
CPT/HCPCS: 36415; 71046; 74177; 80048; 80053; 81003; 82803; 83690; 83880; 85025; 87040; 87086; 93306; 96361; 96365; 96366; 96367; 96368; 96372; 96375; 96376; 99285; G0378; G0480; J0295; J0456; J0692; J1650; J1885; J1940; J2270; J2405; J2550; J7040; Q9966; Q9967

== ENCOUNTER 2017-12-10 02:21 | Emergency (ER) | payer MEDICARE ==
[2017-12-10 02:21] VITALS: BMI 18.1
[2017-12-10 02:27] VITALS: BP 116/74; PULSE 87; RESP 18; TEMP 97.8; O2SAT 99
[2017-12-10] MEDS ORDERED: Sodium Chloride 0.9% 1,000 ML IV STA (03:23)
--- NOTE | 2017-12-10 03:26 | ED PDOC ---
HPI: Abdomen Time Seen by Provider: 12/10/17 02:32 Chief Complaint (Nursing): Back Pain Chief Complaint (Provider): abdominal pain History Per: Patient History/Exam Limitations: no limitations Onset/Duration Of Symptoms: Hrs Current Symptoms Are (Timing): Still Present Location Of Pain/Discomfort: Diffuse Associated Symptoms: Nausea, Diarrhea Additional Complaint(s): 62 y/o male brought in by EMS for evaluation of diffuse abdominal pain x 5 hours. Associated nausea, diarrhea. Patient states he had similar symptoms last week and was admitted for pneumonia. Denies fever, vomiting, cough, chest pain, shortness of breath, palpitations, urinary symptoms, recent travel, sick contacts. Past Medical History Reviewed: Historical Data, Nursing Documentation, Vital Signs Vital Signs: Last Vital Signs Temp 97.8 F 12/10/17 02:24 Pulse 87 12/10/17 02:24 Resp 18 12/10/17 02:24 BP 116/74 12/10/17 02:24 Pulse Ox 99 12/10/17 04:59 - Medical History PMH: Anxiety, Depression, HTN, Pancreatitis (Recurrent), Chronic Pain (abdominal ) Denies: HIV, Chronic Kidney Disease - Family History Family History: States: Unknown Family Hx - Immunization History Hx Tetanus Toxoid Vaccination: Yes Hx Influenza Vaccination: Yes Hx Pneumococcal Vaccination: Yes - Home Medications Home Medications: Ambulatory Orders Medication Instructions Recorded Alprazolam [Xanax] 0.5 mg PO TID 08/18/16 Paroxetine HCl [Paxil] 20 mg PO DAILY 08/18/16 Amoxicillin/Clavulanate [Augmentin 1 tab PO Q12 #14 tab 12/04/17 875 MG-125 MG] Azithromycin [Zithromax Tri-Chuck] 500 mg PO DAILY #5 tablet 12/04/17 Dicyclomine [Bentyl] 20 mg PO TID PRN #15 tab 12/10/17 Ondansetron ODT [Zofran ODT] 4 mg PO Q8 PRN #10 odt 12/10/17 - Allergies Allergies/Adverse Reactions: Allergies Allergy/AdvReac Type Severity Reaction Status Date / Time No Known Allergies Allergy Verified 12/10/17 02:26 Review of Systems ROS Statement: Except As Marked, All Systems Reviewed And Found Negative Gastrointestinal: Positive for: Nausea, Abdominal Pain, Diarrhea Physical Exam - Reviewed Nursing Documentation Reviewed: Yes Vital Signs Reviewed: Yes - Physical Exam Appears: Positive for: Well, Non-toxic, No Acute Distress Head Exam: Positive for: ATRAUMATIC, NORMAL INSPECTION, NORMOCEPHALIC Skin: Positive for: Normal Color Eye Exam: Positive for: Normal appearance ENT: Positive for: Normal ENT Inspection Cardiovascular/Chest: Positive for: Regular Rate, Rhythm Respiratory: Positive for: Normal Breath Sounds Gastrointestinal/Abdominal: Positive for: Bowel Sounds, Soft, Tenderness ( diffuse) Back: Positive for: Normal Inspection Extremity: Positive for: Normal ROM Neurologic/Psych: Positive for: Alert, Oriented - Laboratory Results Result Diagrams: 12/10/17 04:23 12/10/17 04:23 - ECG O2 Sat by Pulse Oximetry: 99 - Radiology X-Ray: Viewed By Ut X-Ray Interpretation: No Acute Disease - Progress ED Course And Treament: labs, chest xray, IV fluids, PO zofran On re-eval, patient resting comfortably; states he is feeling better. Patient educated on findings, discharged with rx Zofran, Bentyl. Advised follow up PMD/GI. Fluids. Sebastian diet. Return precautions given. Disposition - Clinical Impression Clinical Impression: Gastroenteritis - Patient ED Disposition Is Patient to be Admitted: No Counseled Patient/Family Regarding: Studies Performed, Diagnosis, Need For Followup - Disposition Referrals: Pk Archer MD [Medical Doctor] - Disposition: Routine/Home Disposition Time: 04:58 Condition: IMPROVED Prescriptions: Dicyclomine [Bentyl] 20 mg PO TID PRN #15 tab PRN Reason: Pain, Mild (1-3) Ondansetron ODT [Zofran ODT] 4 mg PO Q8 PRN #10 odt PRN Reason: Nausea/Vomiting Instructions: Gastroenteritis (ED)
[2017-12-10 04:27] LABS: BASO # 0.1 K/uL (0.0-0.2); BASO % 0.8 % (0.0-2.0); EOS # 0.1 K/uL (0.0-0.7); EOS % 1.9 % (0.0-4.0); HEMOGLOBIN 13.5 g/dL (12.0-18.0); LYMPH # 1.7 K/uL (1.0-4.3); MEAN CELL VOLUME 92.6 fl (80.0-94.0); MEAN CORPUSCULAR HEMOGLOBIN 31.9 pg (27.0-31.0); MEAN CORPUSCULAR HGB CONC 34.4 g/dL (33.0-37.0); MEAN PLATELET VOLUME 7.6 fl (7.2-11.7); MONO # 0.6 K/uL (0.0-0.8); MONO % 7.8 % (0.0-10.0); NEUT % 66.5 % (50.0-75.0); NRBC % 0.3 % (0.0-0.0); RBC 4.23 Mil/uL (4.40-5.90); RED CELL DISTRIBUTION WIDTH 13.7 % (11.5-14.5); WHITE BLOOD COUNT 7.5 K/uL (4.8-10.8)
[2017-12-10 04:41] LABS: ALB/GLOB RATIO 1.4 (1.0-2.1); ALBUMIN 4.3 g/dL (3.5-5.0); ALT/SGPT 39 U/L (21-72); AST/SGOT 30 U/L (17-59); BLOOD UREA NITROGEN 15 mg/dl (9-20); CALCIUM 9.8 mg/dL (8.4-10.2); GFR AFRICAN-AMERICAN > 60; GFR NON-AFRICAN AMERICAN > 60; LIPASE 337 U/L (23-300)
--- NOTE | 2017-12-10 09:29 | RAD ---
HISTORY: Cough. COMPARISON: No prior. TECHNIQUE: Chest PA and lateral FINDINGS: LUNGS: Hyperinflation ; findings could be secondary to COPD or emphysema. No acute consolidation. Mild biapical pleural thickening PLEURA: No significant pleural effusion identified. No pneumothorax apparent. CARDIOVASCULAR: Normal. OSSEOUS STRUCTURES: No significant abnormalities. VISUALIZED UPPER ABDOMEN: Normal. OTHER FINDINGS: None. IMPRESSION: Hyperinflation; rule out COPD or emphysema. No acute consolidation. Biapical pleural thickening.
== END 2017-12-10 05:25 | disposition home or self-care (01) ==
LOC: H.ER 02:21
DX: K52.9 Noninfective gastroenteritis and colitis, unspecified (principal); F32.9 Major depressive disorder, single episode, unspecified; F41.9 Anxiety disorder, unspecified; G89.29 Other chronic pain; I10 Essential (primary) hypertension
CPT/HCPCS: 71046; 80053; 83690; 85025; 96374; 99283; J1885; J7040

== ENCOUNTER 2018-01-13 02:31 | Emergency (ER) | payer MEDICARE ==
[2018-01-13 02:32] VITALS: BMI 18.1
[2018-01-13 02:39] VITALS: TEMP 98
[2018-01-13] MEDS ORDERED: Sodium Chloride 0.9% 1,000 ML IV STA (02:43)
--- NOTE | 2018-01-13 02:47 | ED PDOC ---
HPI: Abdomen Time Seen by Provider: 01/13/18 02:39 Chief Complaint (Nursing): Abdominal Pain History Per: Patient History/Exam Limitations: no limitations Current Symptoms Are (Timing): Still Present Location Of Pain/Discomfort: Epigastric Quality Of Discomfort: Sharp Associated Symptoms: Nausea, Vomiting, Diarrhea, Back Pain, Constipation. denies: Fever, Chills, Loss Of Appetite, Chest Pain Exacerbating Factors: Food Additional Complaint(s): Patient well known to ER with history of anxiety and pancreatitis presenting with abdominal pain, vomiting, diarrhea, states he's had multiple episodes of watery diarrhea and nonbloody, nonbilious vomiting today associated with epigastric pain radiating to his back, which he states he's had many times in the past. Denies fevers, cough, recent travel. Patient states he has not had alcohol in 2 years. States he has a list of foods he knows he's not supposed to eat but may have accidentally consumed one of them today. Past Medical History Vital Signs: Last Vital Signs Temp 98.0 F 01/13/18 02:36 Pulse 87 01/13/18 02:36 Resp 16 01/13/18 02:36 BP 121/68 01/13/18 02:36 Pulse Ox 98 01/13/18 03:34 - Medical History PMH: Anxiety, Depression, HTN, Pancreatitis (Recurrent), Chronic Pain (abdominal ) Denies: HIV, Chronic Kidney Disease - Family History Family History: States: Unknown Family Hx - Immunization History Hx Tetanus Toxoid Vaccination: Yes Hx Influenza Vaccination: Yes Hx Pneumococcal Vaccination: Yes - Home Medications Home Medications: Ambulatory Orders Medication Instructions Recorded Alprazolam [Xanax] 0.5 mg PO TID 08/18/16 Paroxetine HCl [Paxil] 20 mg PO DAILY 08/18/16 Amoxicillin/Clavulanate [Augmentin 1 tab PO Q12 #14 tab 12/04/17 875 MG-125 MG] Azithromycin [Zithromax Tri-Chuck] 500 mg PO DAILY #5 tablet 12/04/17 Dicyclomine [Bentyl] 20 mg PO TID PRN #15 tab 12/10/17 Ondansetron ODT [Zofran ODT] 4 mg PO Q8 PRN #10 odt 12/10/17 Dicyclomine [Bentyl] 20 mg PO BID #30 tab 01/13/18 Ondansetron ODT [Zofran ODT] 4 mg PO Q8 PRN #12 odt 01/13/18 - Allergies Allergies/Adverse Reactions: Allergies Allergy/AdvReac Type Severity Reaction Status Date / Time No Known Allergies Allergy Verified 12/10/17 02:26 Review of Systems ROS Statement: Except As Marked, All Systems Reviewed And Found Negative Gastrointestinal: Positive for: Nausea, Vomiting, Abdominal Pain, Diarrhea Physical Exam - Reviewed Nursing Documentation Reviewed: Yes Vital Signs Reviewed: Yes - Physical Exam Appears: Positive for: Well, Non-toxic, No Acute Distress Head Exam: Positive for: ATRAUMATIC, NORMAL INSPECTION, NORMOCEPHALIC Skin: Positive for: Normal Color, Warm, DRY Eye Exam: Positive for: EOMI, Normal appearance, PERRL ENT: Positive for: Normal ENT Inspection Neck: Positive for: Normal, Painless ROM Cardiovascular/Chest: Positive for: Regular Rate, Rhythm Respiratory: Positive for: CNT, Normal Breath Sounds Gastrointestinal/Abdominal: Positive for: Normal Exam, Bowel Sounds, Soft, Tenderness (Mild tenderness in epigastrium to palpation ). Negative for: Organomegaly, Mass, Distended, Guarding, Rebound, Hernia, Asicites Back: Positive for: Normal Inspection Extremity: Positive for: Normal ROM Neurologic/Psych: Positive for: Alert, Oriented - Laboratory Results Result Diagrams: 01/13/18 02:50 01/13/18 02:50 - ECG O2 Sat by Pulse Oximetry: 98 Pulse Ox Interpretation: Normal Medical Decision Making Medical Decision MakinAM A/P: Hx of depression, pancreatitis presenting with nausea, vomiting, abdominal pain -patient's presentation most consistent with gastroenteritis, will also workup for pancreatitis -not concerned for PNA, aortic/cardiac involvement given history and PE -will check labs, provide fluids, anti-emetic, low dose opiate and re-eval 325AM -lipase ~400, not significant for pancreatitis -patient feeling well, tolerating PO, well appearing -advised to be wary of diet Disposition - Clinical Impression Clinical Impression: Gastroenteritis - Patient ED Disposition Is Patient to be Admitted: No - Disposition Referrals: Pastor Pace MD, PhD [Staff Provider] - Disposition: Routine/Home Disposition Time: 03:33 Condition: IMPROVED Prescriptions: Dicyclomine [Bentyl] 20 mg PO BID #30 tab Ondansetron ODT [Zofran ODT] 4 mg PO Q8 PRN #12 odt PRN Reason: Nausea/Vomiting Instructions: Gastroenteritis (ED) Forms: [employer] ([place])
[2018-01-13] MEDS ORDERED: Morphine 4 MG/ML VIAL ONE (02:58)
[2018-01-13 03:04] LABS: BASO % 0.6 % (0.0-2.0); EOS # 0.1 K/uL (0.0-0.7); EOS % 2.2 % (0.0-4.0); HEMOGLOBIN 14.3 g/dL (12.0-18.0); LYMPH # 1.9 K/uL (1.0-4.3); MEAN CELL VOLUME 93.4 fl (80.0-94.0); MEAN CORPUSCULAR HEMOGLOBIN 32.5 pg (27.0-31.0); MEAN CORPUSCULAR HGB CONC 34.8 g/dL (33.0-37.0); MEAN PLATELET VOLUME 8.3 fl (7.2-11.7); MONO # 0.4 K/uL (0.0-0.8); MONO % 7.6 % (0.0-10.0); NEUT # 3.1 K/uL (1.8-7.0); NEUT % 55.6 % (50.0-75.0); NRBC % 0.2 % (0.0-0.0); RBC 4.4 Mil/uL (4.40-5.90); RED CELL DISTRIBUTION WIDTH 14.2 % (11.5-14.5); WHITE BLOOD COUNT 5.6 K/uL (4.8-10.8)
[2018-01-13 03:14] LABS: ALB/GLOB RATIO 1.5 (1.0-2.1); ALBUMIN 4.4 g/dL (3.5-5.0); ALT/SGPT 31 U/L (21-72); AST/SGOT 32 U/L (17-59); BILIRUBIN,DIRECT 0.4 mg/ml (0.0-0.4); BLOOD UREA NITROGEN 18 mg/dl (9-20); CALCIUM 9.9 mg/dL (8.4-10.2); GFR AFRICAN-AMERICAN > 60; GFR NON-AFRICAN AMERICAN > 60; LIPASE 440 U/L (23-300)
[2018-01-13 03:53] VITALS: BP 126/74; PULSE 82; RESP 18; O2SAT 97
== END 2018-01-13 03:47 | disposition home or self-care (01) ==
LOC: H.ER 02:31
DX: K52.9 Noninfective gastroenteritis and colitis, unspecified (principal); K85.90 Acute pancreatitis without necrosis or infection, unspecified; F32.9 Major depressive disorder, single episode, unspecified; F41.9 Anxiety disorder, unspecified; I10 Essential (primary) hypertension; G89.29 Other chronic pain
CPT/HCPCS: 80048; 80076; 82948; 83690; 85025; 96361; 96374; 96375; 99283; J1885; J2270; J2405; J7040

== ENCOUNTER 2018-01-31 18:39 | Emergency (ER) | payer MEDICARE ==
[2018-01-31 18:39] VITALS: BMI 18.1
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
[2018-01-31 20:31] VITALS: BP 138/84; PULSE 73; RESP 16; TEMP 98.1; O2SAT 97
== END 2018-01-31 21:01 | disposition home or self-care (01) ==
LOC: H.ER 18:39
DX: M54.9 Dorsalgia, unspecified (principal); M54.2 Cervicalgia
CPT/HCPCS: 96372; 99283; J1885

== ENCOUNTER 2018-03-18 21:14 | Inpatient (IN) | payer MEDICARE ==
[2018-03-18 21:14] VITALS: BMI 18.1
[2018-03-18] MEDS ORDERED: Sodium Chloride 0.9% 1,000 ML IV STA (21:38)
--- NOTE | 2018-03-18 21:42 | ED PDOC ---
HPI: Abdomen Time Seen by Provider: 03/18/18 21:28 Chief Complaint (Nursing): Abdominal Pain Chief Complaint (Provider): abdominal pain History Per: Patient History/Exam Limitations: no limitations Onset/Duration Of Symptoms: Hrs Current Symptoms Are (Timing): Still Present Location Of Pain/Discomfort: Diffuse Quality Of Discomfort: "Pain" Associated Symptoms: Nausea Additional Complaint(s): 62 y/o male history of pancreatitis, depression presents for evaluation of abdominal pain with associated nausea x 10 hours. States similar similar to previous pancreatitis flare-ups. Denies fever, chest pain, shortness of breath, palpitations, changes in bowel movements, urinary symptoms. Past Medical History Reviewed: Historical Data, Nursing Documentation, Vital Signs Vital Signs: Last Vital Signs Temp 98.5 F 03/18/18 21:21 Pulse 86 03/18/18 21:21 Resp 21 03/18/18 21:21 BP 148/88 03/18/18 21:21 Pulse Ox 97 03/19/18 05:27 - Medical History PMH: Anxiety, Depression, HTN, Pancreatitis (Recurrent), Chronic Pain Denies: HIV, Chronic Kidney Disease - Surgical History Surgical History: No Surg Hx - Family History Family History: States: Unknown Family Hx - Immunization History Hx Tetanus Toxoid Vaccination: Yes Hx Influenza Vaccination: Yes Hx Pneumococcal Vaccination: Yes - Home Medications Home Medications: Ambulatory Orders Medication Instructions Recorded Alprazolam [Xanax] 0.5 mg PO TID 03/19/18 Paroxetine HCl [Paxil] 40 mg PO DAILY 03/19/18 - Allergies Allergies/Adverse Reactions: Allergies Allergy/AdvReac Type Severity Reaction Status Date / Time No Known Allergies Allergy Verified 01/31/18 18:42 Review of Systems ROS Statement: Except As Marked, All Systems Reviewed And Found Negative Gastrointestinal: Positive for: Nausea, Abdominal Pain Physical Exam - Reviewed Nursing Documentation Reviewed: Yes Vital Signs Reviewed: Yes - Physical Exam Appears: Positive for: Well, Non-toxic, No Acute Distress Head Exam: Positive for: ATRAUMATIC, NORMAL INSPECTION, NORMOCEPHALIC Skin: Positive for: Normal Color Eye Exam: Positive for: Normal appearance ENT: Positive for: Normal ENT Inspection Cardiovascular/Chest: Positive for: Regular Rate, Rhythm Respiratory: Positive for: Normal Breath Sounds Gastrointestinal/Abdominal: Positive for: Bowel Sounds, Soft, Tenderness ( diffuse) Back: Positive for: Normal Inspection Extremity: Positive for: Normal ROM Neurologic/Psych: Positive for: Alert, Oriented - Laboratory Results Result Diagrams: 03/18/18 22:40 03/19/18 02:21 - ECG ECG: Positive for: Viewed By Me (reviewed by ED attending) ECG Rhythm: Positive for: Sinus Rhythm O2 Sat by Pulse Oximetry: 97 - Progress ED Course And Treament: labs, IV fluids, IV morphine Lipase 3565 Patient still complaining of pain. IV dilaudid, IV LR bolus, CT abd/pelvis ordered NPO Case discussed with Dr. Lara, medical service on-call, for admission Disposition - Clinical Impression Clinical Impression: Acute pancreatitis - Patient ED Disposition Is Patient to be Admitted: Yes - Disposition Disposition Time: 05:27 Condition: FAIR
[2018-03-18 22:48] LABS: BASO # 0.1 K/uL (0.0-0.2); BASO % 1.1 % (0.0-2.0); EOS # 0.1 K/uL (0.0-0.7); EOS % 0.9 % (0.0-4.0); LYMPH # 1.5 K/uL (1.0-4.3); LYMPH % 23.2 % (20.0-40.0); MEAN CELL VOLUME 93.2 fl (80.0-94.0); MEAN CORPUSCULAR HEMOGLOBIN 32.2 pg (27.0-31.0); MEAN CORPUSCULAR HGB CONC 34.5 g/dL (33.0-37.0); MEAN PLATELET VOLUME 8.1 fl (7.2-11.7); MONO # 0.5 K/uL (0.0-0.8); MONO % 7.8 % (0.0-10.0); NEUT # 4.5 K/uL (1.8-7.0); RBC 4.36 Mil/uL (4.40-5.90); RED CELL DISTRIBUTION WIDTH 14.2 % (11.5-14.5); WHITE BLOOD COUNT 6.7 K/uL (4.8-10.8)
[2018-03-19 00:28] LABS: URINE BILIRUBIN NEGATIVE (NEGATIVE); URINE BLOOD NEGATIVE (NEGATIVE); URINE CLARITY SLIGHTY-CLOUDY (Clear); URINE COLOR YELLOW (YELLOW); URINE GLUCOSE (UA) NEG (Normal); URINE HYALINE CAST 0-2 /hpf (0-2); URINE LEUKOCYTE ESTERASE NEG Leu/uL (Negative); URINE PROTEIN NEGATIVE (NEGATIVE); URINE UROBILINOGEN 0.2-1.0 mg/dL (0.2-1.0)
[2018-03-19 02:36] LABS: ALB/GLOB RATIO 1.5 (1.0-2.1); ALBUMIN 4.2 g/dL (3.5-5.0); ALT/SGPT 22 U/L (21-72); AST/SGOT 29 U/L (17-59); BLOOD UREA NITROGEN 15 mg/dl (9-20); CALCIUM 9.3 mg/dL (8.4-10.2); GFR AFRICAN-AMERICAN > 60; GFR NON-AFRICAN AMERICAN > 60
[2018-03-19 02:58] LABS: LIPASE 3565 U/L (23-300)
[2018-03-19] MEDS ORDERED: Lactated Ringer's 1,000 ML IV STA (03:04)
[2018-03-19] MEDS ORDERED: HYDROmorphone 0.5 mg/0.5 ml ISec ONE ×3 (03:24→07:54)
[2018-03-19] MEDS: HYDROmorphone 0.5 mg/0.5 ml ISec IVP STA ×2 (03:30→08:00)
[2018-03-19] MEDS ORDERED: HYDROmorphone 1 mg/ml ISec IVP STA (04:51)
[2018-03-19] MEDS ORDERED: HYDROmorphone 0.5 mg/0.5 ml ISec IVP STA (05:09)
[2018-03-19] MEDS ORDERED: Iohexol 300 100 ML IJ ONE (05:13)
[2018-03-19] MEDS ORDERED: Sodium Chloride 0.9% 50 ML IV ONE (05:13)
--- NOTE | 2018-03-19 09:27 | CT ---
Date of service: 03/19/2018 PROCEDURE: CT Abdomen and Pelvis with contrast HISTORY: abd pain, elevated lipase COMPARISON: Comparison is made with 12/03/2017 TECHNIQUE: Contrast dose: 95 cc of Omnipaque 300. Axial and reformatted coronal and sagittal CT images of the abdomen and pelvis were obtained after IV contrast administration Radiation dose: Total exam DLP = 220.24 mGy-cm. This CT exam was performed using one or more of the following dose reduction techniques: Automated exposure control, adjustment of the mA and/or kV according to patient size, and/or use of iterative reconstruction technique. FINDINGS: LOWER THORAX: Mild emphysematous changes are noted at the visualized portion of the lungs. No evidence of pleural effusion or cardiomegaly. LIVER: Mild hepatomegaly is noted. No gross lesion or ductal dilatation. GALLBLADDER AND BILE DUCTS: Dense of acute cholecystitis PANCREAS: Unremarkable. No gross lesion or ductal dilatation. SPLEEN: Unremarkable. ADRENALS: Diffuse bilateral enlargement of the adrenal glands is again noted likely represent adrenal hyperplasia versus bilateral benign adenomas. Findings have not significantly changed since the previous exam. KIDNEYS AND URETERS: Unremarkable. No hydronephrosis. No solid mass. VASCULATURE: Unremarkable. No aortic aneurysm. BOWEL: Small bowel loops are slightly dilated. Fluid density stool is also noted in the large bowel. The possibility of enteritis or less likely bowel ileus cannot be excluded. No evidence of significant large bowel wall thickening. APPENDIX: Normal appendix. PERITONEUM: Unremarkable. No free fluid. No free air. LYMPH NODES: Unremarkable. No enlarged lymph nodes. BLADDER: Diffuse urinary bladder wall thickening is noted. REPRODUCTIVE: The prostate is mildly enlarged. BONES: No acute fracture. OTHER FINDINGS: None. IMPRESSION: Mildly dilated small bowel loops and fluid density stool in the small and large bowel. Findings may represent enteritis and diarrhea versus mild small bowel ileus. Mild to moderate circumferential urinary bladder wall thickening. Otherwise no evidence of acute pathology in the abdomen and pelvis. Preliminary report was submitted by virtual Radiology.
[2018-03-19] MEDS ORDERED: Lactated Ringer's 1,000 ML IV SCH (10:00)
--- NOTE | 2018-03-19 10:28 | RAD ---
Date of service: 03/19/2018 HISTORY: admit COMPARISON: Comparison is made with 12/10/2017 FINDINGS: LUNGS: No active pulmonary disease. PLEURA: No significant pleural effusion identified, no pneumothorax apparent. CARDIOVASCULAR: Normal. OSSEOUS STRUCTURES: No significant abnormalities. VISUALIZED UPPER ABDOMEN: Normal. OTHER FINDINGS: None. IMPRESSION: No active disease.
[2018-03-19] MEDS ORDERED: HYDROmorphone 0.5 mg/0.5 ml ISec IVP PRN (11:15)
--- NOTE | 2018-03-19 13:33 | CP.PCM.HP ---
<Sariah Katz - Last Filed: 03/19/18 14:24> History of Present Illness - History of Present Illness History of Present Illness: 62 yo M with PM pancreatitis (many times), depression and anxiety, former EtOH abuse admitted due to acute pancreatitis. Pt presented to ED for evaluation of abdominal pain and nausea x 10 hours. Today when seen on rounds, stated that this was similar to past flare-ups. Denies drinking any alcohol, states he has been sober since May 2016. Only medications are paxil and xanax. Denies fever, chest pain, shortness of breath, palpitations, changes in bowel movements, urinary symptoms. Elevated lipase 3000s in ED. CT showed signs of enteritis. Present on Admission - Present on Admission Any Indicators Present on Admission: No Review of Systems - Review of Systems All systems: reviewed and no additional remarkable complaints except (as per HPI ) Past Patient History - Infectious Disease Hx of Infectious Diseases: None - Past Medical History & Family History Past Medical History?: Yes - Past Social History Smoking Status: Light Smoker < 10 Cigarettes Daily Alcohol: Other (states former drinker, not any longer) - CARDIAC Hx Cardiac Disorders: No - PULMONARY Hx Respiratory Disorders: No - NEUROLOGICAL Hx Neurological Disorder: No - HEENT Hx HEENT Problems: No - RENAL Hx Chronic Kidney Disease: No - ENDOCRINE/METABOLIC Hx Endocrine Disorders: No - HEMATOLOGICAL/ONCOLOGICAL Hx Human Immunodeficiency Virus (HIV): No - INTEGUMENTARY Hx Dermatological Problems: No - MUSCULOSKELETAL/RHEUMATOLOGICAL Hx Musculoskeletal Disorders: No Hx Falls: No - GASTROINTESTINAL Hx Pancreatitis: Yes (Recurrent) - GENITOURINARY/GYNECOLOGICAL Hx Genitourinary Disorders: No - PSYCHIATRIC Hx Psychophysiologic Disorder: Yes Hx Anxiety: Yes Hx Depression: Yes Hx Substance Use: Yes - SURGICAL HISTORY Hx Surgeries: No - ANESTHESIA Hx Anesthesia: No Hx Anesthesia Reactions: No Hx Malignant Hyperthermia: No Meds Allergies/Adverse Reactions: Allergies Allergy/AdvReac Type Severity Reaction Status Date / Time No Known Allergies Allergy Verified 01/31/18 18:42 Physical Exam - Constitutional Additional comments: appears uncomfortable - Eye Exam Eye Exam: Normal appearance - Respiratory Exam Respiratory Exam: NORMAL BREATHING PATTERN. absent: Respiratory Distress - Cardiovascular Exam Cardiovascular Exam: REGULAR RHYTHM - GI/Abdominal Exam GI & Abdominal Exam: Normal Bowel Sounds, Tenderness (epigastric) - Extremities Exam Extremities exam: Negative for: calf tenderness - Neurological Exam Neurological exam: Alert, Oriented x3 - Psychiatric Exam Psychiatric exam: Normal Mood - Skin Skin Exam: Normal Color, Warm Results - Vital Signs Recent Vital Signs: Last Vital Signs Temp 97.9 F 03/19/18 09:49 Pulse 69 03/19/18 09:49 Resp 18 03/19/18 10:30 BP 126/76 03/19/18 09:49 Pulse Ox 95 03/19/18 09:49 - Labs Result Diagrams: 03/18/18 22:40 03/19/18 02:21 Labs: Laboratory Results - last 24 hr 03/18/18 03/19/18 03/19/18 22:40 00:18 02:21 WBC 6.7 RBC 4.36 L Hgb 14.0 Hct 40.7 MCV 93.2 MCH 32.2 H MCHC 34.5 RDW 14.2 Plt Count 236 MPV 8.1 Neut % (Auto) 67.0 Lymph % (Auto) 23.2 [place] % (Auto) 7.8 Eos % (Auto) 0.9 Baso % (Auto) 1.1 Neut # (Auto) 4.5 Lymph # (Auto) 1.5 [place] # (Auto) 0.5 Eos # (Auto) 0.1 Baso # (Auto) 0.1 Sodium 143 Potassium 4.9 Chloride 108 H Carbon Dioxide 26 Anion Gap 14 BUN 15 Creatinine 0.9 Est GFR ( Amer) > 60 Est GFR (Non-Af Amer) > 60 Random Glucose 90 Calcium 9.3 Total Bilirubin 0.7 AST 29 ALT 22 Alkaline Phosphatase 77 Total Protein 7.1 Albumin 4.2 Globulin 2.9 Albumin/Globulin Ratio 1.5 Lipase 3565 H Urine Color Yellow Urine Clarity Slighty-cloudy Urine pH 5.0 Ur Specific [place] 1.019 Urine Protein Negative Urine Glucose (UA) Neg Urine Ketones Negative Urine Blood Negative Urine Nitrate Negative Urine Bilirubin Negative Urine Urobilinogen 0.2-1.0 Ur Leukocyte Esterase Neg Urine RBC (Auto) 6 H Urine Microscopic WBC 4 Hyaline Casts 0-2 Assessment & Plan (1) Acute on chronic pancreatitis Status: Acute Priority: High (2) Enteritis Status: Acute (3) History of ETOH abuse Status: Chronic (4) Depression Status: Chronic (5) Anxiety Status: Chronic - Assessment and Plan (Free Text) Plan: - Admitted to [facility] - NPO, LR @ 200 ml/hr, PPI - pain control - CBC, Ca, Lipid panel, CMP, lipase, amylase tomorrow - GI consult - Dr. Pace - Chioro/Dandy for enteritis on CT - Rest of plan as ordered <Josias Lara - Last Filed: 03/20/18 07:59> Results - Vital Signs Recent Vital Signs: Last Vital Signs Temp 97.9 F 03/20/18 01:00 Pulse 62 03/20/18 01:00 Resp 20 03/20/18 01:00 BP 148/73 03/20/18 01:00 Pulse Ox 96 03/20/18 01:00 - Labs Result Diagrams: 03/20/18 05:30 03/20/18 05:30 Labs: Laboratory Results - last 24 hr 03/19/18 03/20/18 03/20/18 12:27 05:30 05:30 WBC 5.8 RBC 4.27 L Hgb 13.6 Hct 40.7 MCV 95.5 H D MCH 31.9 H MCHC 33.5 RDW 14.1 Plt Count 180 Sodium 140 Potassium 4.2 Chloride 106 Carbon Dioxide 23 Anion Gap 15 BUN 16 Creatinine 0.7 L Est GFR ( Amer) > 60 Est GFR (Non-Af Amer) > 60 Random Glucose 68 L Calcium 9.2 Total Bilirubin 0.6 AST 30 ALT 29 Alkaline Phosphatase 76 Total Protein 6.6 Albumin 3.8 Globulin 2.7 Albumin/Globulin Ratio 1.4 Triglycerides 80 Cholesterol 177 LDL Cholesterol Direct 108 HDL Cholesterol 39 Amylase 342 H D Lipase 571 H Assessment & Plan - Assessment and Plan (Free Text) Plan: I was present during evaluation and discussed with Dr Katz re plans of care and tx. Josias Lara M.D.
[2018-03-19 14:05] LABS: HDL CHOLESTEROL 39 MG/DL (30-70)
[2018-03-19 14:15] LABS: LDL CHOLESTEROL 108 mg/dL (0-129)
[2018-03-19] MEDS: Ciprofloxacin 400mg/200ml D5W 400 MG/200 ML BAG IVPB SCH ×2 (14:55→20:11)
[2018-03-19] MEDS: metroNIDAZOLE 500mg/100ml NS 100 ML IVPB SCH ×2 (14:55→19:02)
--- NOTE | 2018-03-19 18:36 | US ---
Date of service: 03/19/2018 HISTORY: pancreatitis COMPARISON: None. TECHNIQUE: Sonographic evaluation of the abdomen. FINDINGS: LIVER: Measures 13.9 cm. Normal echogenicity of the liver parenchyma. No mass. No intrahepatic bile duct dilatation. GALLBLADDER: Unremarkable. No gallstones. COMMON BILE DUCT: Measures 4 mm. No stones. No dilatation. PANCREAS: Unremarkable as visualized. No mass. No ductal dilatation. RIGHT KIDNEY: Measures 10.4 x 4.4 x 4.6cm. Normal echogenicity. No calculus, mass, or hydronephrosis. LEFT KIDNEY: Measures 11.5 x 4.7 x 5.1cm. Normal echogenicity. No calculus, mass, or hydronephrosis. SPLEEN: Normal in size and contour. No mass. AORTA: No aneurysmal dilatation. IVC: Unremarkable. OTHER FINDINGS: None. IMPRESSION: Unremarkable abdominal sonogram.
[2018-03-20] MEDS: metroNIDAZOLE 500mg/100ml NS 100 ML IVPB SCH ×2 (00:02→08:29)
[2018-03-20 07:22] LABS: HEMOGLOBIN 13.6 g/dL (12.0-18.0); MEAN CELL VOLUME 95.5 fl (80.0-94.0); MEAN CORPUSCULAR HEMOGLOBIN 31.9 pg (27.0-31.0); MEAN CORPUSCULAR HGB CONC 33.5 g/dL (33.0-37.0); RBC 4.27 Mil/uL (4.40-5.90); RED CELL DISTRIBUTION WIDTH 14.1 % (11.5-14.5); WHITE BLOOD COUNT 5.8 K/uL (4.8-10.8)
[2018-03-20 07:35] LABS: ALB/GLOB RATIO 1.4 (1.0-2.1); ALBUMIN 3.8 g/dL (3.5-5.0); ALT/SGPT 29 U/L (21-72); AMYLASE 342 U/L (30-110); AST/SGOT 30 U/L (17-59); BLOOD UREA NITROGEN 16 mg/dl (9-20); CALCIUM 9.2 mg/dL (8.4-10.2); GFR AFRICAN-AMERICAN > 60; GFR NON-AFRICAN AMERICAN > 60; LIPASE 571 U/L (23-300)
--- NOTE | 2018-03-20 07:59 | CP.PCM.PN ---
Subjective - Date & Time of Evaluation Date of Evaluation: 03/20/18 Time of Evaluation: 07:59 Objective - Vital Signs/Intake and Output Vital Signs (last 24 hours): Temp Pulse Resp BP Pulse Ox 97.9 F 62 20 148/73 96 03/20/18 01:00 03/20/18 01:00 03/20/18 01:00 03/20/18 01:00 03/20/18 01:00 - Medications Medications: Current Medications Hydromorphone HCl (Dilaudid) 1 mg IVP Q3 PRN PRN Reason: Pain, severe (8-10) Last Admin: 03/19/18 11:05 Dose: 1 mg Lactated Ringer's (Lactated Ringer's) 1,000 mls @ 200 mls/hr IV .Q5H YFN Ciprofloxacin (Cipro 400mg/200ml Dsw) 400 mg in 200 mls @ 200 mls/hr IVPB Q12 YFN PRN Reason: Protocol Last Admin: 03/19/18 20:11 Dose: 200 mls/hr Metronidazole (Flagyl 500mg/100ml Ns) 100 mls @ 100 mls/hr IVPB Q8 YFN PRN Reason: Protocol Last Admin: 03/20/18 00:02 Dose: 100 mls/hr Ketorolac Tromethamine (Toradol) 30 mg IVP Q6 PRN PRN Reason: Pain, severe (8-10) Morphine Sulfate (Morphine) 2 mg IVP Q4 PRN PRN Reason: Pain, severe (8-10) Last Admin: 03/20/18 04:15 Dose: 2 mg Ondansetron HCl (Zofran Inj) 2 mg IVP Q4 PRN PRN Reason: Nausea/Vomiting Pantoprazole Sodium (Protonix Inj) 40 mg IVP DAILY [facility] Last Admin: 03/19/18 14:54 Dose: 40 mg - Labs Labs: 03/20/18 05:30 03/20/18 05:30
[2018-03-20] MEDS: Ciprofloxacin 400mg/200ml D5W 400 MG/200 ML BAG IVPB SCH (08:27)
[2018-03-20 08:43] VITALS: BP 135/72; PULSE 57; RESP 18; TEMP 97.7; O2SAT 98
--- NOTE | 2018-03-22 09:17 | CON ---
DATE: 03/19/2018 REASON FOR CONSULTATION: Elevated lipase and abdominal pain. HISTORY OF PRESENT ILLNESS: This is a 62-year-old male with a history of pancreatitis in the past. anxiety, former alcohol user who had two years. The patient nausea, vomiting, abdominal pain, some loose bowel movements as well. Denies any drinking recently. Currently lying in bed comfortable, mild abdominal distress. PAST MEDICAL HISTORY: As above. PAST SURGICAL HISTORY: As above. MEDICATIONS: Have been reviewed. REVIEW OF SYSTEMS: All other systems have been reviewed and negative apart from the HPI. PHYSICAL EXAMINATION: VITAL SIGNS: Here in the hospital are grossly unremarkable. GENERAL: This is a pleasant middle-aged male, lying in bed comfortably, and in no apparent distress. HEENT: Head is normocephalic and atraumatic. Eyes: Pupils are equal and reactive to light bilaterally. No conjunctival pallor or icterus. NECK: Supple. Normal range of motion. No lymphadenopathy appreciated. LUNGS: Coarse breath sounds bilaterally. HEART: S1 and S2, regular rate and rhythm. No murmurs appreciated. ABDOMEN: Soft and nontender. Bowel sounds are present. Some discomfort. No rebound. No guarding. RECTAL: Deferred. EXTREMITIES: Pulses present bilaterally. SKIN: Warm, dry and intact. NEUROLOGIC: A and O x3. LABORATORY DATA: All labs and radiology have been reviewed. Labs include a WBC of 4.7, hemoglobin 14.1 and hematocrit of 40.7. Lipase is 3500. CAT scan shows some small bowel loops and likely enteritis, but no issues in the pancreas. ASSESSMENT AND PLAN: This is a 62-year-old man with pancreatitis and enteritis. I suspect the lipase may be actually secondary to enteritis, possible pancreatitis; however, CAT scan is grossly unremarkable. We will get ultrasound of the abdomen to rule out any gallstones. Aggressive IV hydration. Clear liquid diet for now. Pain control as needed. Thank you for the consult. Pastor Pace MD/ PhD BRIGHT
--- NOTE | 2018-03-22 11:46 | CARD ---
APPROVED REPORT Date of service: 03/18/2018 EKG Measurement Heart [id number] ID [id number] <Conclusion> Normal sinus rhythm Minimal voltage criteria for LVH, may be normal variant Borderline ECG
== END 2018-03-20 10:45 | disposition home or self-care (01) | DRG 440 ==
LOC: H.ER 21:14 → H.ERHOLD 03-19 05:50 → H.MEDSURG1 03-19 09:28
PROVIDERS: ADMIT Family Medicine; ATTEND Family Medicine
DX: K85.90 Acute pancreatitis without necrosis or infection, unspecified (principal); K86.1 Other chronic pancreatitis; Z87.891 Personal history of nicotine dependence; F45.9 Somatoform disorder, unspecified; I10 Essential (primary) hypertension; G89.29 Other chronic pain; Z79.899 Other long term (current) drug therapy; R74.8 Abnormal levels of other serum enzymes; F32.9 Major depressive disorder, single episode, unspecified; F41.9 Anxiety disorder, unspecified; K52.9 Noninfective gastroenteritis and colitis, unspecified

== ENCOUNTER 2018-04-21 01:13 | Emergency (ER) | payer MEDICARE ==
[2018-04-21 01:18] VITALS: BMI 21.5
[2018-04-21] MEDS ORDERED: Sodium Chloride 0.9% 1,000 ML IV STA (01:18)
[2018-04-21 01:19] VITALS: O2SAT 98
[2018-04-21 02:11] LABS: BASO % 0.8 % (0.0-2.0); EOS # 0.1 K/uL (0.0-0.7); EOS % 1.8 % (0.0-4.0); HEMOGLOBIN 13.3 g/dL (12.0-18.0); LYMPH # 1.6 K/uL (1.0-4.3); LYMPH % 27.7 % (20.0-40.0); MEAN CELL VOLUME 94.7 fl (80.0-94.0); MEAN CORPUSCULAR HEMOGLOBIN 32.2 pg (27.0-31.0); MEAN PLATELET VOLUME 8.2 fl (7.2-11.7); MONO # 0.6 K/uL (0.0-0.8); MONO % 9.8 % (0.0-10.0); NEUT # 3.4 K/uL (1.8-7.0); NEUT % 59.9 % (50.0-75.0); RBC 4.13 Mil/uL (4.40-5.90); RED CELL DISTRIBUTION WIDTH 13.7 % (11.5-14.5); WHITE BLOOD COUNT 5.7 K/uL (4.8-10.8)
[2018-04-21 02:23] LABS: ALB/GLOB RATIO 1.6 (1.0-2.1); ALBUMIN 4.5 g/dL (3.5-5.0); CALCIUM 9.4 mg/dL (8.4-10.2); GFR AFRICAN-AMERICAN > 60; GFR NON-AFRICAN AMERICAN > 60; LIPASE 152 U/L (23-300)
[2018-04-21 02:25] LABS: ALT/SGPT 20 U/L (21-72); AST/SGOT 29 U/L (17-59); BLOOD UREA NITROGEN 13 mg/dl (9-20)
--- NOTE | 2018-04-21 03:07 | ED PDOC ---
HPI: Abdomen Time Seen by Provider: 04/21/18 01:15 Chief Complaint (Nursing): Abdominal Pain Chief Complaint (Provider): Abdominal Pain History Per: Patient History/Exam Limitations: no limitations Onset/Duration Of Symptoms: Hrs Current Symptoms Are (Timing): Still Present Location Of Pain/Discomfort: Epigastric Associated Symptoms: Vomiting, Diarrhea Additional Complaint(s): 62 y/o male with a PMHx of pancreatitis presents to the ED complaining of abdominal pain associated with non-bloody, non-bilious vomiting and watery diarrhea, onset this morning. Patient denies taking any drugs or drinking alcohol. Of note, patient has not followed up with a PMD or Music Theory Teacher as an outpatient. Denies fever and chills. PMD: No Provider Past Medical History Reviewed: Historical Data, Nursing Documentation, Vital Signs Vital Signs: Last Vital Signs Temp 98.9 F 04/21/18 01:16 Pulse 91 H 04/21/18 01:16 Resp 18 04/21/18 01:16 BP 132/85 04/21/18 01:16 Pulse Ox 98 04/21/18 03:12 - Medical History PMH: Anxiety, Depression, HTN, Pancreatitis (Recurrent), Chronic Pain Denies: HIV, Chronic Kidney Disease - Surgical History Surgical History: No Surg Hx - Family History Family History: States: Unknown Family Hx - Immunization History Hx Tetanus Toxoid Vaccination: Yes Hx Influenza Vaccination: Yes Hx Pneumococcal Vaccination: Yes - Home Medications Home Medications: Ambulatory Orders Medication Instructions Recorded Alprazolam [Xanax] 0.5 mg PO TID 02/15/18 Dicyclomine [Dicyclomine HCl] 10 mg PO TID PRN #15 cap 02/15/18 Paroxetine HCl [Paxil] 40 mg PO DAILY 02/15/18 Polyethylene Glycol 3350 [Miralax] 17 gm PO DAILY #270 ml 02/15/18 Alprazolam [Xanax] 0.5 mg PO TID 03/19/18 Paroxetine HCl [Paxil] 40 mg PO DAILY 03/19/18 - Allergies Allergies/Adverse Reactions: Allergies Allergy/AdvReac Type Severity Reaction Status Date / Time No Known Allergies Allergy Unverified 02/15/18 16:35 Review of Systems ROS Statement: Except As Marked, All Systems Reviewed And Found Negative Constitutional: Negative for: Fever, Chills Gastrointestinal: Positive for: Vomiting, Abdominal Pain, Diarrhea Physical Exam - Reviewed Nursing Documentation Reviewed: Yes Vital Signs Reviewed: Yes - Physical Exam Appears: Positive for: No Acute Distress Head Exam: Positive for: ATRAUMATIC, NORMOCEPHALIC Skin: Positive for: Normal Color, Warm, Dry Eye Exam: Positive for: Normal appearance, EOMI, PERRL Neck: Positive for: Normal, Painless ROM Cardiovascular/Chest: Positive for: Regular Rate, Rhythm. Negative for: Murmur Respiratory: Positive for: Normal Breath Sounds. Negative for: Respiratory Distress Gastrointestinal/Abdominal: Positive for: Normal Exam, Soft, Tenderness ( epigastric tenderness to palpation) Back: Positive for: Normal Inspection. Negative for: L CVA Tenderness, R CVA Tenderness Extremity: Positive for: Normal ROM. Negative for: Pedal Edema, Deformity Neurologic/Psych: Positive for: Alert, Oriented. Negative for: Motor/Sensory Deficits - Laboratory Results Result Diagrams: 04/21/18 02:00 04/21/18 02:00 - ECG O2 Sat by Pulse Oximetry: 98 (RA) Pulse Ox Interpretation: Normal Medical Decision Making Medical Decision Making: Time: 0118 A/P: 62 y/o male with a PMHx of pancreatitis presenting with epigastric pain -- Concerned for possible pancreatitis vs. gastroenteritis vs. gastritis -- Patient reports of similar pain in the past Plan: -- Urine Drug Screen -- Morphine 2 mg IVP -- Sodium Chloride IV 1000 mls/hr -- Urinalysis Time: 0200 Plan: -- CMP -- Lipase -- CBC with differentials Time: 0254 Plan: -- Zofran Inj 4 mg IVP -- Toradol 30 mg IVP 330 --Patient tolerating PO, feeling better --Will d/c home --Advise to followup with GI as outpatient Scribe Attestation: Documented by Kavya Manzano acting as a scribe for Dr. Cornelio Giron MD. Provider Scribe Attestation: All medical record entries made by the Scribe were at my direction and personally dictated by me. I have reviewed the chart and agree that the record accurately reflects my personal performance of the history, physical exam, medical decision making, and the department course for this patient. I have also personally directed, reviewed, and agree with the discharge instructions and disposition. Disposition - Clinical Impression Clinical Impression: Gastroenteritis - Disposition Referrals: Pastor Pace MD, PhD [Staff Provider] - Disposition: Routine/Home Disposition Time: 03:30 Condition: IMPROVED Instructions: Diarrhea in Adolescents and Adults Forms: [facility] (Lao)
[2018-04-21 04:10] VITALS: BP 119/70; PULSE 70; RESP 17; TEMP 97.6
== END 2018-04-21 04:00 | disposition home or self-care (01) ==
LOC: H.ER 01:13
DX: K52.9 Noninfective gastroenteritis and colitis, unspecified (principal); F32.9 Major depressive disorder, single episode, unspecified; F41.9 Anxiety disorder, unspecified; G89.29 Other chronic pain; I10 Essential (primary) hypertension
CPT/HCPCS: 80053; 83690; 85025; 96361; 96374; 96375; 99283; J1885; J2270; J2405; J7030

== ENCOUNTER 2018-05-22 16:50 | Inpatient (IN) | payer MEDICARE, OTHER ==
[2018-05-22 16:50] VITALS: BMI 21.5
[2018-05-22] MEDS ORDERED: Lactated Ringer's 1,000 ML IV SCH (17:45)
[2018-05-22 17:51] LABS: BASO # 0.1 K/uL (0.0-0.2); BASO % 1.2 % (0.0-2.0); EOS # 0.1 K/uL (0.0-0.7); EOS % 1.5 % (0.0-4.0); HEMOGLOBIN 13.1 g/dL (12.0-18.0); LYMPH % 34.1 % (20.0-40.0); MEAN CELL VOLUME 95.9 fl (80.0-94.0); MEAN CORPUSCULAR HGB CONC 33.4 g/dL (33.0-37.0); MEAN PLATELET VOLUME 8.2 fl (7.2-11.7); MONO # 0.5 K/uL (0.0-0.8); MONO % 7.6 % (0.0-10.0); NEUT # 3.3 K/uL (1.8-7.0); NEUT % 55.6 % (50.0-75.0); NRBC % 0.1 % (0.0-0.0); RBC 4.09 Mil/uL (4.40-5.90); RED CELL DISTRIBUTION WIDTH 14.3 % (11.5-14.5); WHITE BLOOD COUNT 5.9 K/uL (4.8-10.8)
[2018-05-22 17:55] LABS: INR 1.1; PROTHROMBIN TIME 11.8 Seconds (9.8-13.1)
[2018-05-22 17:58] LABS: PARTIAL THROMBOPLASTIN TIME 26.4 Seconds (25.6-37.1)
[2018-05-22 18:00] LABS: ALB/GLOB RATIO 1.4 (1.0-2.1); ALBUMIN 4.2 g/dL (3.5-5.0); ALT/SGPT 31 U/L (21-72); AST/SGOT 28 U/L (17-59); BLOOD UREA NITROGEN 13 mg/dl (9-20); CALCIUM 9.6 mg/dL (8.4-10.2); GFR NON-AFRICAN AMERICAN > 60; LIPASE 1492 U/L (23-300)
--- NOTE | 2018-05-22 18:19 | ED PDOC ---
HPI: Abdomen Time Seen by Provider: 05/22/18 17:10 Chief Complaint (Nursing): Abdominal Pain Chief Complaint (Provider): Abdominal Pain History Per: Patient History/Exam Limitations: no limitations Onset/Duration Of Symptoms: Days (x2) Current Symptoms Are (Timing): Still Present Additional Complaint(s): 62 year old male, with a past medical history of pancreatitis, presenting for evaluation of non-bloody vomiting and non-bloody diarrhea associated with abdominal pain x2 days. Patient denies any fever and states this episode of symptoms feels like his previous episodes of pancreatitis. Patient denies any alcohol use. PMD: Dr. Hidalgo Past Medical History Reviewed: Historical Data, Nursing Documentation, Vital Signs Vital Signs: Last Vital Signs Temp 98 F 05/23/18 16:28 Pulse 69 05/23/18 16:28 Resp 18 05/23/18 16:28 BP 99/60 L 05/23/18 16:28 Pulse Ox 92 L 05/23/18 16:28 - Medical History PMH: Anxiety, Depression, HTN, Pancreatitis (Recurrent), Chronic Pain Denies: HIV, Chronic Kidney Disease - Surgical History Surgical History: No Surg Hx - Family History Family History: States: Unknown Family Hx - Social History Alcohol: None - Immunization History Hx Tetanus Toxoid Vaccination: Yes Hx Influenza Vaccination: Yes Hx Pneumococcal Vaccination: Yes - Home Medications Home Medications: Ambulatory Orders Medication Instructions Recorded Alprazolam [Xanax] 0.5 mg PO TID 02/15/18 Paroxetine HCl [Paxil] 40 mg PO DAILY 02/15/18 - Allergies Allergies/Adverse Reactions: Allergies Allergy/AdvReac Type Severity Reaction Status Date / Time No Known Allergies Allergy Verified 05/22/18 16:55 Review of Systems ROS Statement: Except As Marked, All Systems Reviewed And Found Negative Constitutional: Negative for: Fever Gastrointestinal: Positive for: Vomiting, Abdominal Pain, Diarrhea Physical Exam - Reviewed Nursing Documentation Reviewed: Yes Vital Signs Reviewed: Yes - Physical Exam Appears: Positive for: Non-toxic, No Acute Distress Head Exam: Positive for: ATRAUMATIC Skin: Positive for: Normal Color, Warm Eye Exam: Positive for: Normal appearance Cardiovascular/Chest: Positive for: Regular Rate, Rhythm. Negative for: Murmur Respiratory: Positive for: Normal Breath Sounds. Negative for: Respiratory Distress Gastrointestinal/Abdominal: Positive for: Tenderness (generalized abdominal tenderness, most in epigastrium). Negative for: Guarding, Rebound Neurologic/Psych: Positive for: Alert, Oriented - Laboratory Results Result Diagrams: 05/23/18 04:32 05/23/18 04:32 - ECG O2 Sat by Pulse Oximetry: 97 (RA) Pulse Ox Interpretation: Normal Medical Decision Making Medical Decision Making: Plan: -CT abdomen and pelvis with IV contrast -EKG -Alcohol serum -CMP -Lipase -CBC -PTT/PT -CXR -Lactated Ringers 1,000mL IV -Morphine 2mg IV -Zofran 4mg IV -Urinalysis -Reevaluation ----- Scribe Attestation: Documented by Dandre Negron, acting as a scribe for Mercedes Lr MD. Provider Scribe Attestation: All medical record entries made by the Scribe were at my direction and personally dictated by me. I have reviewed the chart and agree that the record accurately reflects my personal performance of the history, physical exam, medical decision making, and the department course for this patient. I have also personally directed, reviewed, and agree with the discharge instructions and disposition. Disposition - Clinical Impression Clinical Impression: Pancreatitis - Patient ED Disposition Is Patient to be Admitted: Yes - Disposition Disposition Time: 18:33 Condition: STABLE - Pt Status Changed To: Hospital Disposition Of: Inpatient - Admit Certification Admit to Inpatient:: After my assessment, the patient will require hospitalization for at least two midnights. This is because of the severity of symptoms shown, intensity of services needed, and/or the medical risk in this patient being treated as an outpatient. - POA Present On Arrival: None
[2018-05-22] MEDS ORDERED: Iohexol 300 100 ML IJ ONE (18:26)
[2018-05-22] MEDS ORDERED: Sodium Chloride 0.9% 50 ML IV ONE (18:27)
[2018-05-22] MEDS: Lactated Ringer's 1,000 ML IV SCH ×3 (18:33→20:35)
[2018-05-22 18:44] LABS: SQUAMOUS EPITHIAL < 1 /hpf (0-5); URINE BILIRUBIN NEGATIVE (NEGATIVE); URINE BLOOD NEGATIVE (NEGATIVE); URINE CLARITY CLEAR (Clear); URINE COLOR YELLOW (YELLOW); URINE GLUCOSE (UA) NEG (Normal); URINE LEUKOCYTE ESTERASE NEG Leu/uL (Negative); URINE PROTEIN NEGATIVE (NEGATIVE); URINE UROBILINOGEN 0.2-1.0 mg/dL (0.2-1.0)
[2018-05-22] MEDS: Dextrose 5%/0.9% NS 1,000 ML IV SCH (23:06)
[2018-05-23 06:24] LABS: ALB/GLOB RATIO 1.3 (1.0-2.1); ALBUMIN 3.7 g/dL (3.5-5.0); ALT/SGPT 26 U/L (21-72); AMYLASE 686 U/L (30-110); AST/SGOT 26 U/L (17-59); BLOOD UREA NITROGEN 12 mg/dl (9-20); CALCIUM 9.1 mg/dL (8.4-10.2); GFR NON-AFRICAN AMERICAN > 60; HDL CHOLESTEROL 39 MG/DL (30-70)
[2018-05-23 06:34] LABS: LDL CHOLESTEROL 93 mg/dL (0-129)
[2018-05-23 06:40] LABS: T4 8.06 ug/dl (5.5-11.0)
[2018-05-23 06:57] LABS: BASO % 0.6 % (0.0-2.0); EOS # 0.1 K/uL (0.0-0.7); EOS % 1.3 % (0.0-4.0); HEMOGLOBIN 13.1 g/dL (12.0-18.0); LYMPH % 28.3 % (20.0-40.0); MEAN CELL VOLUME 96.3 fl (80.0-94.0); MEAN CORPUSCULAR HGB CONC 33.2 g/dL (33.0-37.0); MEAN PLATELET VOLUME 8.4 fl (7.2-11.7); MONO # 0.5 K/uL (0.0-0.8); MONO % 6.5 % (0.0-10.0); NEUT # 4.5 K/uL (1.8-7.0); NEUT % 63.3 % (50.0-75.0); RBC 4.09 Mil/uL (4.40-5.90); RED CELL DISTRIBUTION WIDTH 14.5 % (11.5-14.5); WHITE BLOOD COUNT 7.2 K/uL (4.8-10.8)
[2018-05-23 07:15] LABS: LIPASE 4598 U/L (23-300)
--- NOTE | 2018-05-23 08:05 | CARD ---
APPROVED REPORT Date of service: 05/22/2018 <Conclusion> Sinus bradycardia Otherwise normal ECG
[2018-05-23] MEDS: Dextrose 5%/0.9% NS 1,000 ML IV SCH ×2 (08:11→10:42)
--- NOTE | 2018-05-23 08:48 | RAD ---
Date of service: 05/22/2018 HISTORY: Abd pain COMPARISON: 7138 TECHNIQUE: Chest PA and lateral FINDINGS: LUNGS: Lungs are hyperinflated with mild chronic interstitial change in apical pleural reticular nodular scarring. No appreciable new alveolar infiltrate is noted. PLEURA: No significant pleural effusion identified. No pneumothorax apparent. CARDIOVASCULAR: Normal. OSSEOUS STRUCTURES: No significant abnormalities. VISUALIZED UPPER ABDOMEN: Normal. OTHER FINDINGS: None. IMPRESSION: Mild interstitial change in hyperinflation without new focal infiltrate. Mild chronic apical pleural changes.
--- NOTE | 2018-05-23 10:32 | CT ---
Date of service: 05/22/2018 PROCEDURE: CT Abdomen and Pelvis with contrast HISTORY: Gen abd pain, >epigastrium, v/d COMPARISON: 03/19/2018 TECHNIQUE: Contrast dose: 95 milliliters Radiation dose: Total exam DLP = 229 mGy-cm. This CT exam was performed using one or more of the following dose reduction techniques: Automated exposure control, adjustment of the mA and/or kV according to patient size, and/or use of iterative reconstruction technique. FINDINGS: LOWER THORAX: No infiltrate or effusion at the lung bases. Visualized esophagus shows evidence of small hiatal hernia. There is also the suggestion of some mild wall thickening which may suggest mild esophagitis. This is also seen on the prior study. Visualized stomach is decompressed without focal wall thickening. Tiny gastric diverticulum is seen in the fundus. Duodenum is unremarkable. LIVER: Liver is mildly fatty infiltrated without evidence of focal mass or intrahepatic ductal dilatation. GALLBLADDER AND BILE DUCTS: Unremarkable. PANCREAS: Unremarkable. No gross lesion or ductal dilatation. SPLEEN: Unremarkable. ADRENALS: There is symmetric bilateral adrenal thickening which may suggest hyperplasia and noted on prior study. KIDNEYS AND URETERS: Tiny right renal cyst is noted. No hydronephrosis, perinephric changes, or calculus are seen. Tiny left renal cyst is also noted. Ureters are within normal limits. VASCULATURE: Atherosclerotic change without aneurysm. BOWEL: Mild chronic diverticular changes. No pericolonic inflammatory change or bowel wall thickening to suggest colitis. No small bowel dilatation or small bowel obstruction noted. Terminal ileum is unremarkable. APPENDIX: Retrocecal appendix normal in outline. PERITONEUM: Unremarkable. No free fluid. No free air. LYMPH NODES: Unremarkable. No enlarged lymph nodes. BLADDER: Bladder is distended, without wall thickening. REPRODUCTIVE: Prostate gland is mildly enlarged. BONES: No acute fracture. OTHER FINDINGS: None. IMPRESSION: No appreciable acute inflammatory process in the abdomen and pelvis. Stable mild distal esophageal thickening which may suggest mild esophagitis or be associated with a small hiatal hernia. Tiny gastric diverticulum unchanged from prior study. No evidence of gallstones or gallbladder wall thickening. Unremarkable pancreas. Stable mild adrenal nodular thickening which may suggest hyperplasia. This agrees with preliminary report.
[2018-05-23] MEDS: Lactated Ringer's 1,000 ML IV SCH ×2 (12:56→18:44)
--- NOTE | 2018-05-23 15:56 | CP.PCM.HP ---
History of Present Illness - History of Present Illness History of Present Illness: CC: Abdominal pain. 62 y/o M, Hx of Pancreatitis, ETOH abuse, Opioid dependance, [facility] acute generalized abdominal pain, which is constant, stabbing, moderate-severe intensity 6-7:10 that began 2 days CAUL PULLER increased on DOA, with no relief, associated to nausea, vomiting non bilious, non bloody, and diarrhea non bloody. Worsening symptoms: Elevated Lipase while in ER 337, today 4598, Amylase 686. Irritability due to pain, weakness. Aggravated factor: Food. Pt denied: Fever, chills, dizziness, CP, palpitations, SOB, cough, sick contact , recent travel out of [place]. Abd/pelv CT: No inflammation process, mild distal esophageal thickening which may suggest mild Esophagitis. CXR: Mid interstitial change in hyperinflation without new focal infiltrate. EKG: Sinus tachycardia. Present on Admission - Present on Admission Any Indicators Present on Admission: No Review of Systems - Constitutional Constitutional: Weakness - EENT Eyes: Requires Corrective Lenses Ears: Other (negative) Nose/Mouth/Throat: Other (negative) - Cardiovascular Cardiovascular: Other (negative) - Respiratory Respiratory: Other (negative) - Gastrointestinal Gastrointestinal: Abdominal Pain, Diarrhea, Nausea, Vomiting - Genitourinary Genitourinary: Other (negative) - Integumentary Integumentary: Other (negative) - Neurological Neurological: Weakness - Psychiatric Psychiatric: Anxiety, Depression - Endocrine Endocrine: Other (negative) - Hematologic/Lymphatic Hematologic: Other (negative) Past Patient History - Infectious Disease Hx of Infectious Diseases: None - Past Medical History & Family History Past Medical History?: Yes Pertinent Family History: Unknown - Past Social History Smoking Status: Heavy Smoker > 10 Cigarettes Daily Alcohol: Other (Hx of ETOH abuse) Drugs: Denies Home Situation {Lives}: Alone - CARDIAC Hx Cardiac Disorders: Yes Hx Hypertension: Yes - PULMONARY Hx Respiratory Disorders: No - NEUROLOGICAL Hx Neurological Disorder: No - HEENT Hx HEENT Problems: No - RENAL Hx Chronic Kidney Disease: No - ENDOCRINE/METABOLIC Hx Endocrine Disorders: Yes (pancreatitis) - HEMATOLOGICAL/ONCOLOGICAL Hx Blood Disorders: No Hx Human Immunodeficiency Virus (HIV): No - INTEGUMENTARY Hx Dermatological Problems: No - MUSCULOSKELETAL/RHEUMATOLOGICAL Hx Musculoskeletal Disorders: Yes Hx Falls: Yes - GASTROINTESTINAL Hx Gastrointestinal Disorders: Yes Hx Pancreatitis: Yes (Recurrent) - GENITOURINARY/GYNECOLOGICAL Hx Genitourinary Disorders: No - PSYCHIATRIC Hx Psychophysiologic Disorder: Yes (anxiety; depression, hx of etoh abuse) Hx Anxiety: Yes Hx Depression: Yes Hx Substance Use: No - SURGICAL HISTORY Hx Surgeries: No - ANESTHESIA Hx Anesthesia: No Hx Anesthesia Reactions: No Hx Malignant Hyperthermia: No Meds Allergies/Adverse Reactions: Allergies Allergy/AdvReac Type Severity Reaction Status Date / Time No Known Allergies Allergy Verified 05/22/18 16:55 Physical Exam - Constitutional Appears: No Acute Distress - Head Exam Head Exam: NORMAL INSPECTION - Eye Exam Eye Exam: PERRL - ENT Exam ENT Exam: Normal Oropharynx - Neck Exam Neck exam: Positive for: Normal Inspection - Respiratory Exam Respiratory Exam: NORMAL BREATHING PATTERN - Cardiovascular Exam Cardiovascular Exam: REGULAR RHYTHM - GI/Abdominal Exam GI & Abdominal Exam: Normal Bowel Sounds, Tenderness (mild generalized) - Extremities Exam Extremities exam: Positive for: normal inspection - Back Exam Back exam: NORMAL INSPECTION - Neurological Exam Neurological exam: Alert, Oriented x3 Additional comments: No motor/sensory deficit. - Psychiatric Exam Psychiatric exam: Anxious - Skin Skin Exam: Warm Results - Vital Signs Recent Vital Signs: Last Vital Signs Temp 97.5 F L 05/23/18 07:54 Pulse 58 L 05/23/18 07:54 Resp 19 05/23/18 07:54 BP 107/68 05/23/18 07:54 Pulse Ox 94 L 05/23/18 07:54 reviewed j.P. - Labs Result Diagrams: 05/23/18 04:32 05/23/18 04:32 Labs: Laboratory Results - last 24 hr 05/22/18 05/22/18 05/22/18 17:40 17:40 17:40 WBC 5.9 RBC 4.09 L Hgb 13.1 Hct 39.3 MCV 95.9 H MCH 32.0 H MCHC 33.4 RDW 14.3 Plt Count 215 MPV 8.2 Neut % (Auto) 55.6 Lymph % (Auto) 34.1 [place] % (Auto) 7.6 Eos % (Auto) 1.5 Baso % (Auto) 1.2 Neut # (Auto) 3.3 Lymph # (Auto) 2.0 [place] # (Auto) 0.5 Eos # (Auto) 0.1 Baso # (Auto) 0.1 PT 11.8 INR 1.1 APTT 26.4 Sodium 139 Potassium 4.5 Chloride 105 Carbon Dioxide 27 Anion Gap 12 BUN 13 Creatinine 0.8 Est GFR ( Amer) > 60 Est GFR (Non-Af Amer) > 60 Random Glucose 74 L Calcium 9.6 Total Bilirubin 0.2 AST 28 ALT 31 Alkaline Phosphatase 63 Total Protein 7.2 Albumin 4.2 Globulin 3.0 Albumin/Globulin Ratio 1.4 Triglycerides Cholesterol LDL Cholesterol Direct HDL Cholesterol Amylase Lipase 1492 H Thyroxine (T4) TSH 3rd Generation Urine Color Urine Clarity Urine pH Ur Specific [place] Urine Protein Urine Glucose (UA) Urine Ketones Urine Blood Urine Nitrate Urine Bilirubin Urine Urobilinogen Ur Leukocyte Esterase Urine RBC (Auto) Urine Microscopic WBC Ur Squamous Epith Cells Alcohol, Quantitative < 10 05/22/18 05/23/18 05/23/18 18:30 04:32 04:32 WBC 7.2 RBC 4.09 L Hgb 13.1 Hct 39.4 MCV 96.3 H MCH 32.0 H MCHC 33.2 RDW 14.5 Plt Count 190 MPV 8.4 Neut % (Auto) 63.3 Lymph % (Auto) 28.3 [place] % (Auto) 6.5 Eos % (Auto) 1.3 Baso % (Auto) 0.6 Neut # (Auto) 4.5 Lymph # (Auto) 2.0 [place] # (Auto) 0.5 Eos # (Auto) 0.1 Baso # (Auto) 0.0 PT INR APTT Sodium 142 Potassium 4.4 Chloride 110 H Carbon Dioxide 28 Anion Gap 8 L BUN 12 Creatinine 0.8 Est GFR ( Amer) > 60 Est GFR (Non-Af Amer) > 60 Random Glucose 83 Calcium 9.1 Total Bilirubin 0.4 AST 26 ALT 26 Alkaline Phosphatase 64 Total Protein 6.6 Albumin 3.7 Globulin 2.9 Albumin/Globulin Ratio 1.3 Triglycerides 66 Cholesterol 155 LDL Cholesterol Direct 93 HDL Cholesterol 39 Amylase 686 H D Lipase 4598 H Thyroxine (T4) 8.06 TSH 3rd Generation 2.40 Urine Color Yellow Urine Clarity Clear Urine pH 6.0 Ur Specific [place] 1.010 Urine Protein Negative Urine Glucose (UA) Neg Urine Ketones Negative Urine Blood Negative Urine Nitrate Negative Urine Bilirubin Negative Urine Urobilinogen 0.2-1.0 Ur Leukocyte Esterase Neg Urine RBC (Auto) 1 Urine Microscopic WBC 1 Ur Squamous Epith Cells < 1 Alcohol, Quantitative reviewed J.P. - EKG Data EKG comments: Reviewed J.P. - Imaging and Cardiology Chest x-ray Status: Report reviewed by me (Kev) CT scan - abdomen Status: Report reviewed by me (Kev) CT scan - pelvis Status: Report reviewed by me (Kev) Assessment & Plan (1) Acute pancreatitis Status: Acute Priority: High (2) Abdominal pain Status: Acute Priority: High (3) Anxiety Status: Chronic Priority: Medium - Assessment and Plan (Free Text) Plan: Keep NPO, Continue Dilaudid, protonix, Ativan and rest of Tx. GI consult. PT araceli. - Date & Time Date: 05/23/18 Time: 11:30
--- NOTE | 2018-05-24 00:30 | CON ---
DATE: 05/23/2018 REFERRING PHYSICIAN: Shaun Hidalgo MD HISTORY OF PRESENT ILLNESS: This is a 62-year-old recovering alcoholic having drinking for two years and for the last two days, he was having nausea and vomiting, significant abdominal pain and discomfort prompted him to come to the emergency room. Given his history of pancreatitis, a workup was done including a CT of the abdomen and pelvis with contrast which did not show any abnormalities to the pancreas. However, his lipase initially yesterday was elevated at 1492 and today it is 4598. LFTs were normal. CBC is essentially unremarkable. The patient this morning looks and feels clinically stable; however, he is complaining of severe abdominal pain and discomfort and he had asked for stronger pain medications. He says he is not having blood per rectum, melena, or any loose stools. He is alert and oriented x3. MEDICATIONS: He does take a Percocet on a daily basis. He is still on it at home. His other medications at home are Xanax. ALLERGIES: NO KNOWN DRUG ALLERGIES. PAST MEDICAL HISTORY: Depression, anxiety, history of pancreatitis, history of alcoholism and is recovering for two years. PAST SURGICAL HISTORY: Negative. FAMILY HISTORY: Noncontributory. SOCIAL HISTORY: Does smoke a pack a day. He denies any drug use at the present, but in the past he had snored some cocaine. He says he has not been drinking for two years. Alcohol level was less than 10. PHYSICAL EXAMINATION: GENERAL: A well-developed, well-nourished thin male. Awake, alert, and oriented. No acute distress. VITAL SIGNS: Stable. He is afebrile. ABDOMEN: Soft, positive bowel sounds. Nondistended. Some tenderness to palpation at the epigastric area. No palpable masses or lesions. LABORATORY DATA: Laboratories are reviewed as per HPI. CAT scan as per the HPI. IMPRESSION AND PLAN: A 62-year-old gentleman with chemical pancreatitis with increasing lipase from 1492 yesterday to 4598 today; however, no CT findings of pancreatitis. No white blood cell count or fever. At this time, I assumed that he has acute on chronic, although there are no changes of chronic pancreatitis noted on the CAT scan and he has sever pain and discomfort. We will change his intravenous fluids to lactated Ringer's at 200 mL per hour since he has a history of cardiac disease. We will also increase his Dilaudid to 4 mg every 4 hours on an as needed basis to control his pain and discomfort. Repeat labs tomorrow particularly the lipase. Keep him nothing by mouth and will follow along with you. Thank you very much for this referral. Leonard Silveira MD
[2018-05-24 00:54] VITALS: RESP 19
[2018-05-24] MEDS: Lactated Ringer's 1,000 ML IV SCH ×4 (01:33→09:04)
[2018-05-24 06:38] LABS: LIPASE 85 U/L (23-300)
[2018-05-24 07:45] LABS: AMYLASE 241 U/L (30-110)
[2018-05-24 07:54] VITALS: BP 111/64; PULSE 79; TEMP 98.5; O2SAT 96
--- NOTE | 2018-05-24 20:27 | CP.PCM.DIS ---
Provider - Provider Date of Admission: 05/22/18 18:33 Attending physician: Shaun Hidalgo MD Diagnosis - Discharge Diagnosis (1) Acute pancreatitis Status: Acute Priority: High (2) Abdominal pain Status: Acute Priority: High (3) Anxiety Status: Chronic Priority: Medium Hospital Course - Lab Results Lab Results: Most Recent Lab Values WBC 7.2 K/uL (4.8-10.8) 05/23/18 04:32 RBC 4.09 Mil/uL (4.40-5.90) L 05/23/18 04:32 Hgb 13.1 g/dL (12.0-18.0) 05/23/18 04:32 Hct 39.4 % (35.0-51.0) 05/23/18 04:32 MCV 96.3 fl (80.0-94.0) H 05/23/18 04:32 MCH 32.0 pg (27.0-31.0) H 05/23/18 04:32 MCHC 33.2 g/dL (33.0-37.0) 05/23/18 04:32 RDW 14.5 % (11.5-14.5) 05/23/18 04:32 Plt Count 190 K/uL (130-400) 05/23/18 04:32 MPV 8.4 fl (7.2-11.7) 05/23/18 04:32 Neut % (Auto) 63.3 % (50.0-75.0) 05/23/18 04:32 Lymph % (Auto) 28.3 % (20.0-40.0) 05/23/18 04:32 [place] % (Auto) 6.5 % (0.0-10.0) 05/23/18 04:32 Eos % (Auto) 1.3 % (0.0-4.0) 05/23/18 04:32 Baso % (Auto) 0.6 % (0.0-2.0) 05/23/18 04:32 Neut # (Auto) 4.5 K/uL (1.8-7.0) 05/23/18 04:32 Lymph # (Auto) 2.0 K/uL (1.0-4.3) 05/23/18 04:32 [place] # (Auto) 0.5 K/uL (0.0-0.8) 05/23/18 04:32 Eos # (Auto) 0.1 K/uL (0.0-0.7) 05/23/18 04:32 Baso # (Auto) 0.0 K/uL (0.0-0.2) 05/23/18 04:32 PT 11.8 Seconds (9.8-13.1) 05/22/18 17:40 INR 1.1 05/22/18 17:40 APTT 26.4 Seconds (25.6-37.1) 05/22/18 17:40 Sodium 142 mmol/l (132-148) 05/23/18 04:32 Potassium 4.4 MMOL/L (3.6-5.0) 05/23/18 04:32 Chloride 110 mmol/L (98-107) H 05/23/18 04:32 Carbon Dioxide 28 mmol/L (22-30) 05/23/18 04:32 Anion Gap 8 (10-20) L 05/23/18 04:32 BUN 12 mg/dl (9-20) 05/23/18 04:32 Creatinine 0.8 mg/dl (0.8-1.5) 05/23/18 04:32 Est GFR ( Amer) > 60 05/23/18 04:32 Est GFR (Non-Af Amer) > 60 05/23/18 04:32 Random Glucose 83 mg/dL (75-110) 05/23/18 04:32 Calcium 9.1 mg/dL (8.4-10.2) 05/23/18 04:32 Total Bilirubin 0.4 mg/dl (0.2-1.3) 05/23/18 04:32 AST 26 U/L (17-59) 05/23/18 04:32 ALT 26 U/L (21-72) 05/23/18 04:32 Alkaline Phosphatase 64 U/L (38-126) 05/23/18 04:32 Total Protein 6.6 G/DL (6.3-8.2) 05/23/18 04:32 Albumin 3.7 g/dL (3.5-5.0) 05/23/18 04:32 Globulin 2.9 gm/dL (2.2-3.9) 05/23/18 04:32 Albumin/Globulin Ratio 1.3 (1.0-2.1) 05/23/18 04:32 Triglycerides 66 mg/DL (0-149) 05/23/18 04:32 Cholesterol 155 mg/dL (0-199) 05/23/18 04:32 LDL Cholesterol Direct 93 mg/dL (0-129) 05/23/18 04:32 HDL Cholesterol 39 MG/DL (30-70) 05/23/18 04:32 Amylase 241 U/L (30-110) H D 05/24/18 05:40 Lipase 85 U/L (23-300) 05/24/18 05:40 Thyroxine (T4) 8.06 ug/dl (5.5-11.0) 05/23/18 04:32 TSH 3rd Generation 2.40 mIU/ML (0.46-4.68) 05/23/18 04:32 Urine Color Yellow (YELLOW) 05/22/18 18:30 Urine Clarity Clear (Clear) 05/22/18 18:30 Urine pH 6.0 (5.0-8.0) 05/22/18 18:30 Ur Specific [place] 1.010 (1.003-1.030) 05/22/18 18:30 Urine Protein Negative mg/dL (NEGATIVE) 05/22/18 18:30 Urine Glucose (UA) Neg mg/dL (Normal) 05/22/18 18:30 Urine Ketones Negative mg/dL (NEGATIVE) 05/22/18 18:30 Urine Blood Negative (NEGATIVE) 05/22/18 18:30 Urine Nitrate Negative (NEGATIVE) 05/22/18 18:30 Urine Bilirubin Negative (NEGATIVE) 05/22/18 18:30 Urine Urobilinogen 0.2-1.0 mg/dL (0.2-1.0) 05/22/18 18:30 Ur Leukocyte Esterase Neg Marie/uL (Negative) 05/22/18 18:30 Urine RBC (Auto) 1 /hpf (0-3) 05/22/18 18:30 Urine Microscopic WBC 1 /hpf (0-5) 05/22/18 18:30 Ur Squamous Epith Cells < 1 /hpf (0-5) 05/22/18 18:30 Alcohol, Quantitative < 10 mg/dl (0-10) 05/22/18 17:40 Discharge Exam - Head Exam Head Exam: NORMAL INSPECTION Discharge Plan - Discharge Medications Prescriptions: Acetaminophen/Codeine NO 2 [Tylenol/Cod 300 MG-15 MG] 1 tab PO Q4 PRN #20 tab PRN Reason: Pain, Moderate (4-7) - Follow Up Plan Condition: STABLE Disposition: HOME/ ROUTINE Instructions: Pancreatitis (DC) Additional Instructions: follow up with your primary MD 1 week Referrals: Pastor Pace MD, PhD [Staff Provider] - Shaun Hidalgo MD [Staff Provider] -
[2018-05-25] MEDS ORDERED: Pantoprazole 40 mg EC Tab PO SCH (09:00)
--- NOTE | 2018-05-26 11:35 | PQF ---
PROVIDER RESPONSE TEXT: Opioid Dependence is currently not a diagnosis for this admission. Previously in the past. REVIEWER QUERY TEXT: Clinical Validity Additional clinical indicators are required to support your documented diagnosis of OPIOID DEPENDENC E. IS OPIOID DEPENDENCE A CURRENT DIAGNOSIS FOR THIS ADMISSION. Please respond and also state in your next progress note whether: -- Condition exists and also please provide clinical indicators to support the diagnosis -- Condition does not exist and also please provide amended documentation in the medical record to cl jerson -- Unable to provide additional clarity regarding the diagnosis -- Other, please specify The patient's Clinical Indicators include: Medication at home includes: Xanax and Paxil. Query created by: Alison Acosta on 05/24/2018 11:00 AM Electronically signed by: Shaun Hidalgo MD 05/26/2018 11:32 AM
== END 2018-05-24 13:32 | disposition home or self-care (01) | DRG 440 ==
LOC: H.ER 16:50 → H.ERHOLD 18:33 → H.MEDSURG1 21:42
PROVIDERS: ADMIT Internal Medicine Pulmonary Disease; ATTEND Internal Medicine Pulmonary Disease
DX: K85.80 Other acute pancreatitis without necrosis or infection (principal); K86.1 Other chronic pancreatitis; F10.21 Alcohol dependence, in remission; F41.9 Anxiety disorder, unspecified; I10 Essential (primary) hypertension; F17.210 Nicotine dependence, cigarettes, uncomplicated; F32.9 Major depressive disorder, single episode, unspecified; G89.29 Other chronic pain; R00.0 Tachycardia, unspecified; Y90.0 Blood alcohol level of less than 20 mg/100 ml

== ENCOUNTER 2018-06-16 15:56 | Emergency (ER) | payer MEDICARE ==
[2018-06-16 15:56] VITALS: BMI 21.5
[2018-06-16 16:14] VITALS: BP 131/77; PULSE 76; RESP 16; TEMP 98.2; O2SAT 99
[2018-06-16 17:42] LABS: BASO # 0.1 K/uL (0.0-0.2); BASO % 0.7 % (0.0-2.0); EOS # 0.1 K/uL (0.0-0.7); HEMOGLOBIN 13.9 g/dL (12.0-18.0); LYMPH # 1.9 K/uL (1.0-4.3); LYMPH % 22.2 % (20.0-40.0); MEAN CELL VOLUME 95.1 fl (80.0-94.0); MEAN CORPUSCULAR HEMOGLOBIN 32.6 pg (27.0-31.0); MEAN CORPUSCULAR HGB CONC 34.3 g/dL (33.0-37.0); MEAN PLATELET VOLUME 9.4 fl (7.2-11.7); MONO # 0.5 K/uL (0.0-0.8); MONO % 5.6 % (0.0-10.0); NEUT # 6.2 K/uL (1.8-7.0); NEUT % 70.5 % (50.0-75.0); NRBC % 0.1 % (0.0-0.0); RBC 4.25 Mil/uL (4.40-5.90); RED CELL DISTRIBUTION WIDTH 14.8 % (11.5-14.5); WHITE BLOOD COUNT 8.8 K/uL (4.8-10.8)
[2018-06-16 17:45] LABS: ALB/GLOB RATIO 1.3 (1.0-2.1); ALBUMIN 4.4 g/dL (3.5-5.0); ALT/SGPT 32 U/L (21-72); AST/SGOT 29 U/L (17-59); BLOOD UREA NITROGEN 16 mg/dl (9-20); GFR NON-AFRICAN AMERICAN > 60; LIPASE 127 U/L (23-300)
[2018-06-16] MEDS ORDERED: Sodium Chloride 0.9% 1,000 ML IV STA (17:55)
--- NOTE | 2018-06-16 17:58 | ED PDOC ---
HPI: Abdomen Time Seen by Provider: 06/16/18 16:00 Chief Complaint (Nursing): Abdominal Pain Chief Complaint (Provider): Abdominal Pain History Per: Patient History/Exam Limitations: no limitations Onset/Duration Of Symptoms: Days Current Symptoms Are (Timing): Still Present Additional Complaint(s): 62 y/o male with a PMHx of Depression and Anxiety presents to the ED for evaluation of epigastric pain associated with nausea and vomiting. Denies fever. pt is concerned that it it his pancreatitis, has history of pancreatitis. PMD: No Provider Past Medical History Reviewed: Historical Data, Nursing Documentation, Vital Signs Vital Signs: Last Vital Signs Temp 98.2 F 06/16/18 16:12 Pulse 76 06/16/18 16:12 Resp 16 06/16/18 16:12 BP 131/77 06/16/18 16:12 Pulse Ox 99 06/16/18 16:12 - Medical History PMH: Anxiety, Depression, HTN, Pancreatitis (Recurrent), Chronic Pain Denies: HIV, Chronic Kidney Disease - Surgical History Surgical History: No Surg Hx - Family History Family History: States: Unknown Family Hx - Social History Current smoker - smoking cessation education provided: No Ex-Smoker (has not smoked in the last 12 months): Yes (x3 years) Drugs: Denies (Ex-Drug User x3 years) - Immunization History Hx Tetanus Toxoid Vaccination: Yes Hx Influenza Vaccination: Yes Hx Pneumococcal Vaccination: Yes - Home Medications Home Medications: Ambulatory Orders Medication Instructions Recorded RX: Alprazolam [Xanax] 0.5 mg PO TID 02/15/18 RX: Paroxetine HCl [Paxil] 40 mg PO DAILY 02/15/18 Acetaminophen/Codeine NO 2 1 tab PO Q4 PRN #20 tab 05/24/18 [Tylenol/Cod 300 MG-15 MG] Famotidine [Pepcid] 20 mg PO DAILY PRN #10 tab 06/16/18 - Allergies Allergies/Adverse Reactions: Allergies Allergy/AdvReac Type Severity Reaction Status Date / Time No Known Allergies Allergy Verified 06/16/18 16:12 Review of Systems ROS Statement: Except As Marked, All Systems Reviewed And Found Negative Constitutional: Negative for: Fever Gastrointestinal: Positive for: Nausea, Vomiting, Abdominal Pain (Epigastric ) Physical Exam - Reviewed Nursing Documentation Reviewed: Yes Vital Signs Reviewed: Yes - Physical Exam Appears: Positive for: No Acute Distress Head Exam: Positive for: ATRAUMATIC, NORMOCEPHALIC Skin: Positive for: Warm, Dry Eye Exam: Positive for: Normal appearance, EOMI, PERRL Neck: Positive for: Normal, Painless ROM Cardiovascular/Chest: Positive for: Regular Rate, Rhythm. Negative for: Murmur Respiratory: Positive for: Normal Breath Sounds. Negative for: Respiratory Distress Gastrointestinal/Abdominal: Positive for: Soft, Tenderness (mild epigastric tenderness) Back: Positive for: Normal Inspection. Negative for: L CVA Tenderness, R CVA Tenderness, Vertebral Tenderness Extremity: Positive for: Normal ROM. Negative for: Pedal Edema, Deformity Neurologic/Psych: Positive for: Alert, Oriented. Negative for: Motor/Sensory Deficits - Laboratory Results Result Diagrams: 06/16/18 17:28 06/16/18 17:28 - ECG O2 Sat by Pulse Oximetry: 99 (RA) Pulse Ox Interpretation: Normal Medical Decision Making Medical Decision Making: Time: 1754 Plan: acute on chronic abdominal pain, rule out pancreatitis (check lipase), rule out electrolyte abnormality -- CMP -- Lipase -- CBC with differentials -- Sodium Chloride IV 999 mls/hr -- Pepcid 20 mg IVP -- Zofran Inj 4 mg IV Time: 1821 -- Patient reports of feeling better and tolerated po and requesting to be discharged. Patient is stable for discharge home with a referral to the [facility]. he states he doesnt have primary dr. Scribe Attestation: Documented by Kavya Manzano, acting as a scribe forKim Khan MD. Provider Scribe Attestation: All medical record entries made by the Scribe were at my direction and personally dictated by me. I have reviewed the chart and agree that the record accurately reflects my personal performance of the history, physical exam, medical decision making, and the department course for this patient. I have also personally directed, reviewed, and agree with the discharge instructions and disposition. Disposition - Clinical Impression Clinical Impression: Chronic abdominal pain - Patient ED Disposition Is Patient to be Admitted: No Counseled Patient/Family Regarding: Studies Performed, Diagnosis, Need For Followup - Disposition Referrals: [facility] [Outside] [facility] [Outside] Disposition: Routine/Home Disposition Time: 18:00 Condition: IMPROVED Additional Instructions: follow up with your primary doctor in 1-2 days return to the ED with any worsening or concerning symptoms Prescriptions: Famotidine [Pepcid] 20 mg PO DAILY PRN #10 tab PRN Reason: Heartburn Instructions: Chronic Pain (DC) Forms: [employer] ([place])
== END 2018-06-16 18:58 | disposition home or self-care (01) ==
LOC: H.ER 15:56
DX: R10.13 Epigastric pain (principal)
CPT/HCPCS: 80053; 83690; 85025; 96374; 99282; J2405; J7030